=== PATIENT | female | born 1955 | race Caucasian/White ===

== ENCOUNTER 2018-03-17 08:46 | Day surgery (SDC) | payer OTHER, BC ==
[2018-03-16 08:27] VITALS: BMI 44.8
--- NOTE | 2018-03-17 11:10 | HP ---
[facility]ellite [facility] - Chief Complaint Chief Complaint: painful hardware right ankle History Source: Patient - Past Medical History Allergies/Adverse Reactions: Allergies Allergy/AdvReac Type Severity Reaction Status Date / Time niacin [Niacin] AdvReac Severe flushing Verified 03/17/18 09:31 - Current Medications Current Medications: Home Medications Medication Instructions Recorded Levothyroxine [Synthroid -] 175 mcg PO DAILY 11/25/11 Simvastatin [Zocor] 20 mg PO HS 11/25/11 Spiriva 18 mcg IN DAILY 11/25/11 Aspirin [Baby Aspirin] 81 mg PO DAILY 01/26/12 Amlodipine 10/Benazepril 20 1 tab PO DAILY 06/09/13 Omeprazole [Prilosec (RX)] 40 mg PO DAILY 06/09/13 Zolpidem Tartrate [Ambien] 10 mg PO HS 06/09/13 Budesonide/Formeterol Fumarate 2 inh PO BID 03/16/18 [SYMBICORT 160/4.5mcg -] Famotidine [Pepcid] 20 mg PO HS 03/16/18 Satellite Physical Exam - Physical Examination Vital Signs: Vital Signs Period Temp Pulse Resp BP Sys/Machado Pulse Ox Last 24 Hr 97.7 F 77 20 139/50 97 Extremities: Other (+ tenderness over plate right ankle) Satellite Impression/Plan - Impression/Plan Impression: painful hardware right ankle Operative Procedure: ABHILASH right ankle Date to be Performed: 03/17/18
[2018-03-17] MEDS ORDERED: LIDOCAINE 1%/EPI 1:100000 (20 ML MULTI DOSE VIAL) ONE (11:13)
[2018-03-17] MEDS ORDERED: MIDAZOLAM HCL 2 MG/2 ML SINGLE DOSE VIAL ONE (11:13)
[2018-03-17] MEDS ORDERED: BUPIVACAINE HCL/PF 0.5% (5MG/ML) 10 ML VIAL ONE (11:13)
[2018-03-17] MEDS ORDERED: ceFAZolin SODIUM 1 GM VIAL ONE (11:24)
[2018-03-17] MEDS ORDERED: KETAMINE HCL 200 MG/20 ML VIAL ONE (11:25)
[2018-03-17] MEDS ORDERED: PROPOFOL 20 ML ONE (11:29)
[2018-03-17] MEDS ORDERED: ceFAZolin SODIUM 1 GM VIAL IVPB ONE (11:35)
[2018-03-17] MEDS ORDERED: LIDOCAINE HCL 1%, 10 MG/ML (20ML VIAL) PNB ONE (11:39)
[2018-03-17] MEDS ORDERED: DEXAMETHASONE SOD PHOSPHATE 4 MG/1 ML VIAL ONE (11:53)
--- NOTE | 2018-03-17 12:12 | OP ---
Operative Note - Note: Operative Date: 03/17/18 ([facility]) Pre-Operative Diagnosis: right ankle painful hardware Operation: right ankle removal of hardware Post-Operative Diagnosis: Same as Pre-op Surgeon: Justyn Oliver Anesthesia: Local, MAC Specimens Removed: screws Estimated Blood Loss (mls): 10 Operative Report Dictated: Yes
[2018-03-17 13:29] VITALS: TEMP 98.1
[2018-03-17 13:37] VITALS: PULSE 84
--- NOTE | 2018-03-17 13:48 | OP ---
DATE OF OPERATION: 03/17/2018 PREOPERATIVE DIAGNOSIS: Painful hardware, right ankle. POSTOPERATIVE DIAGNOSIS: Painful hardware, right ankle. PROCEDURE: Removal of hardware, right ankle. SURGICAL ATTENDING: Justyn Oliver MD ANESTHESIA: Local with sedation. CLOSURE: Nylon 2-0 and 3-0. COMPLICATIONS: None. CONDITION: To recovery room in stable condition. DESCRIPTION OF OPERATIVE PROCEDURE: Patient was taken to the operating room on March 17, 2018. IV sedation was administered by the anesthesiologist. The right lower extremity was prepped and draped in the usual sterile fashion. The ankle area was infiltrated with 1% Xylocaine plan. Utilizing the previous incision, a full-thickness incision from the skin down to the plate was incised. Hemostasis achieved with Bovie cautery. The plate was dissected using periosteal elevator. All screws were removed and then the plate was removed. The sites were curetted and irrigated. The skin was then closed full-thickness with 2-0 and 3-0 nylon. A sterile pressure dressing was applied. The patient was awakened from anesthesia and transferred to recovery room in stable condition. No complication. Estimated blood loss negligible. [place] [id number]
[2018-03-17 14:43] VITALS: BP 145/77
--- NOTE | 2018-03-18 17:17 | PATH ---
Surgical Pathology Report Patient Name: FAINA PALACIO [facility]. Rec. #: [id number] /Age/Gender: 1955 (Age: 63) / F Account: [id number] Location: [facility] Taken: 03/12/2018 Received: 03/17/2018 Reported: 03/18/2018 Physicians: Justyn Oliver M.D. Specimen(s) Received 8 SCREWS, PLATE REMOVED FROM RIGHT ANKLE Clinical History Right ankle fracture Final Diagnosis ANKLE, RIGHT, PLATE AND SCREWS, REMOVAL: SURGICAL HARDWARE. MACROSCOPIC DIAGNOSIS. Electronically Signed Daniela Frank M.D. Gross Description Received fresh labeled "right ankle 8 removed screws and plate," is a 10.0 x 1.6 x 0.3 cm flores metallic plate. Also received within the same container are 8 flores metallic screws ranging from 0.9-1.5 cm in length. No soft tissue is present. No sections are submitted, gross only. /03/17/2018 [facility]03/17/2018
== END 2018-03-17 14:10 | disposition home or self-care (01) ==
LOC: JASU-SURG 08:46
PROVIDERS: ATTEND Orthopaedic Surgery
PROC: 0SPF04Z Removal of Internal Fixation Device from Right Ankle Joint, Open Approach (ICD-10-PCS; principal; 2018-03-17 10:15)
DX: T84.84XA Pain due to internal orthopedic prosthetic devices, implants and grafts, initial encounter (principal); Y83.9 Surgical procedure, unspecified as the cause of abnormal reaction of the patient, or of later complication, without mention of misadventure at the time of the procedure
CPT/HCPCS: 88300-TC

== ENCOUNTER 2018-04-26 08:00 | Inpatient (IN) | payer OTHER, BC ==
--- NOTE | 2018-04-26 08:42 | PDOC ---
History of Present Illness - History of Present Illness Initial Comments: 04/26/18 08:40 63f with pmh of broken ankle s/p hardware removal on March 17 presenting for admission per Dr. Galdamez for persistent infection of the site. Dr. Howard to do surgery tomorrow. <Rodrigue Will - Last Filed: 04/26/18 10:27> <Ivett Monroy - Last Filed: 04/26/18 11:58> - General Chief Complaint: Wound Stated Complaint: SENT BY PCP Time Seen by Provider: 04/26/18 08:24 Past History - Past Medical History Anemia: No Asthma: Yes Cancer: No Cardiac Disorders: No CVA: No COPD: Yes CHF: No Dementia: No Diabetes: No GI Disorders: No Disorders: No HTN: Yes Hypercholesterolemia: Yes Liver Disease: No Seizures: No Thyroid Disease: Yes - Surgical History Abdominal Surgery: No Appendectomy: No Cardiac Surgery: Yes (STENT (>10 YRS)) Cholecystectomy: No Lung Surgery: No Neurologic Surgery: No Orthopedic Surgery: Yes (orif l elbow) - Immunization History Td Vaccination: No Immunization Up to Date: No - Suicide/Smoking/Psychosocial Hx Smoking Status: Yes Smoking History: Current every day smoker Have you smoked in the past 12 months: Yes Number of Cigarettes Smoked Daily: 10 Information on smoking cessation initiated: No 'Breaking Loose' booklet given: 03/16/18 Hx Alcohol Use: No Drug/Substance Use Hx: No Substance Use Type: None Hx Substance Use Treatment: No <Rodrigue Will - Last Filed: 04/26/18 10:27> <Ivett Monroy - Last Filed: 04/26/18 11:58> - Past Medical History Allergies/Adverse Reactions: Allergies Allergy/AdvReac Type Severity Reaction Status Date / Time niacin [Niacin] AdvReac Severe flushing Verified 04/26/18 08:05 Home Medications: Ambulatory Orders Levothyroxine [Synthroid -] 175 mcg PO DAILY 11/25/11 Simvastatin [Zocor] 20 mg PO HS 11/25/11 Aspirin [Baby Aspirin] 81 mg PO DAILY 01/26/12 Zolpidem Tartrate [Ambien] 10 mg PO HS 06/09/13 Budesonide/Formeterol Fumarate [SYMBICORT 160/4.5mcg -] 2 inh PO BID 03/16/18 Famotidine [Pepcid] 20 mg PO HS 03/16/18 Sulfamethoxazole/Trimethoprim [Bactrim Ds Tablet] 1 each PO BID #20 tablet 04/20 Amlodipine Besylate/Benazepril [Lotrel 5-20 mg Capsule] 1 each PO DAILY Collagenase Clostridium Hist. [Santyl] 1 applic TP DAILY 04/26/18 Gentamicin 0.1% Ointment [Garamycin 0.1% Ointment -] 1 applic TP DAILY 04/26/18 Lansoprazole [Prevacid -] 30 mg PO DAILY 04/26/18 Potassium Chloride 10 meq PO DAILY 04/26/18 Tiotropium [place] [Spiriva] 1 inh PO DAILY 04/26/18 Review of Systems - Review of Systems Able to Perform ROS?: Yes Is the patient limited Belarusian proficient: No Constitutional: No: Symptoms Reported HEENTM: No: Symptoms Reported Respiratory: No: Symptoms reported Cardiac (ROS): No: Symptoms Reported ABD/GI: No: Symptoms Reported : No: Symptoms Reported Musculoskeletal: No: Symptoms Reported Integumentary: Yes: See HPI All Other Systems: Reviewed and Negative <Rodrigue Will - Last Filed: 04/26/18 10:27> *Physical Exam - Vital Signs Last Vital Signs Temp Pulse Resp BP Pulse Ox 98.7 F 84 18 126/68 98 04/26/18 08:05 04/26/18 08:05 04/26/18 08:05 04/26/18 08:05 04/26/18 08:05 - Physical Exam General Appearance: Yes: Nourished, Appropriately Dressed. No: Apparent Distress HEENT: positive: EOMI, RAF, Normal ENT Inspection Respiratory/Chest: positive: Lungs Clear, Normal Breath Sounds. negative: Chest Tender, Respiratory Distress Cardiovascular: positive: Regular Rhythm, Regular Rate, S1, S2 Gastrointestinal/Abdominal: positive: Normal Bowel Sounds, Flat, Soft. negative : Tender Extremity: positive: Normal Capillary Refill, Normal Range of Motion. negative : Normal Inspection (10cm linera wound on the lateral right ankle with purulence and foul odor. No sign of tissue necrosis) Integumentary: positive: Dry, Warm Neurologic: positive: Fully Oriented, Alert, Normal Mood/Affect <Rodrigue Will - Last Filed: 04/26/18 10:27> - Vital Signs Last Vital Signs Temp Pulse Resp BP Pulse Ox 98.7 F 84 18 126/68 98 04/26/18 08:05 04/26/18 08:05 04/26/18 08:05 04/26/18 08:05 04/26/18 08:05 <Ivett Monroy - Last Filed: 04/26/18 11:58> ED Treatment Course - LABORATORY CBC & Chemistry Diagram: 04/26/18 10:15 04/26/18 10:15 <Ivett Monroy - Last Filed: 04/26/18 11:58> Medical Decision Making - Medical Decision Making 04/26/18 10:26 EKG: Normal sinus rhythm Possible left atrial enlargement. Spoke to Dr. Galdamez who wants the patient started on Meropenem. All preop labs pending. CXR pending Spoke to Dr Fernandez who accepted the patient being admitted to her. Dr. Howard to do debridement tonight. <Rodrigue Will - Last Filed: 04/26/18 10:27> *DC/Admit/Observation/Transfer - Discharge Dispostion Decision to Admit order: Yes <Rodrigue Will - Last Filed: 04/26/18 10:27> <Ivett Monroy - Last Filed: 04/26/18 11:58> Diagnosis at time of Disposition: Direct infection of right ankle and foot in infectious and parasitic diseases classified elsewhere Wound dehiscence, surgical Qualifiers: Encounter type: initial encounter Qualified Code(s): T81.31XA - Disruption of external operation (surgical) wound, not elsewhere classified, initial encounter
--- NOTE | 2018-04-26 08:55 | PN ---
Progress Note (short form) - Note Progress Note: Vascular Surgery Right ankle ulcer. came into ER today for IV antibiotics and debridement. Will do debridement this evening. Chris kelly DO
[2018-04-26] MEDS ORDERED: MEROPENEM 1 GM in DEXTROSE 5%-WATER 100 ML IVPB ONE (09:27)
[2018-04-26 10:40] LABS: BASO % 0.4 % (0-2.0); EOS % 0.2 % (0-4.5); HEMATOCRIT 37.1 % (32.4-45.2); HEMOGLOBIN 12.1 GM/dL (10.7-15.3); LYMPH % 11.8 % (8-40); MCH 26.3 pg (25.7-33.7); MCHC 32.6 g/dl (32.0-36.0); MEAN CELL VOLUME 80.7 fl (80-96); MEAN PLT VOLUME 8.2 fl (7.5-11.1); MONO % 1.7 % (3.8-10.2); NEUT % 85.9 % (42.8-82.8); PLATELET COUNT 236 K/MM3 (134-434); RBC 4.59 M/mm3 (3.60-5.2); RDW 18.2 % (11.6-15.6); WHITE BLOOD COUNT 6.6 K/mm3 (4.0-10.0)
[2018-04-26 10:53] LABS: INR 1.19 (0.82-1.09); PROTHROMBIN TIME (PATIENT) 13.5 SEC (9.7-13.0)
[2018-04-26 10:56] LABS: ACTIVATED PTT 24.4 SECONDS (25.2-36.5)
[2018-04-26 11:05] LABS: ALBUMIN 3.9 g/dl (3.4-5.0); ALK PHOS 94 U/L (45-117); ANION GAP 8 (8-16); BILIRUBIN,TOTAL 0.3 mg/dL (0.2-1.0); BLOOD UREA NITROGEN 28 mg/dL (7-18); CALCIUM 9.3 mg/dL (8.5-10.1); CHLORIDE 107 mmol/L (98-107); CO2 23 mmol/L (21-32); CREATININE 1.4 mg/dL (0.55-1.02); GLUCOSE,RANDOM 146 mg/dL (74-106); POTASSIUM 4.7 mmol/L (3.5-5.1); SGOT/AST 19 U/L (15-37); SGPT/ALT 25 U/L (12-78); SODIUM 138 mmol/L (136-145)
--- NOTE | 2018-04-26 12:03 | PDOC ---
Attending Attestation - HPI HPI: 04/26/18 12:03 The patient is a 63 year old female, with a significant past medical history of ankle ORIF s/p hardware removal on 03/17/18 presenting today for admission per Dr. Galdamez for persistent infection to the right ankle s/p hardware removal. Dr. Howard to do surgery tomorrow. The patient denies chest pain, shortness of breath, headache and dizziness. The patient denies fever, chills, nausea, vomit, diarrhea and constipation. The patient denies dysuria, frequency, urgency and hematuria. Allergies: niacin Ortho: Dr. Oliver - Physicial Exam PE: 04/26/18 12:04 General: Well appearing, awake and alert, NAD. HEENT: PERRL, EOMI, normal conjunctiva, moist mucus membranes Neck: neck supple, FROM, no JVD, LAD or masses Lungs: CTAB, normal and even respirations, no respiratory distress Heart: RRR, no murmurs, 2+ peripheral pulses throughout, no peripheral edema Abdomen: soft, NTND, no peritoneal signs. No CVAT Back: nontender, normal inspection and ROM MSK: no edema, EDMONDS x4, ROM intact. No clubbing or cyanosis. normal bulk and tone. no tenderness Neuro: alert, oriented appropriately; no focal neurologic deficits. SILT, 5/5 distal and prox strength in all extrem. Skin: Large vertical dehissence wound measuring 6.5cm x1.5cm wound to right lateral malleolus without increased warmth, tenderness, or warmth. warm and well perfused, cap refill <2 sec, normal color; no rash - Medical Decision Making 04/26/18 12:06 Documentation prepared by Tory Briseno, acting as medical care administrator for Ivett Monroy MD, MD <Tory Briseno - Last Filed: 04/26/18 12:03> - Resident Resident Name: Rodrigue Will - Medical Decision Making 04/26/18 11:58 63 YOF with h/o COPD, HTN, HLD, hypothyroid, anxiety and depression, recent right ankle fx s/p plating and removal, with chronic right ankle dehiscence ulcer seen by Podiatry and vascular, presenting with acute on chronic wound ulcer. s/p Bactrim/Gentamicin Santyl x 2 weeks w/o improvement, no fevers or chills, paresthesia or weakness. DDx. wound dehiscence, ulcer, bacteremia, osteomyelitis. vital signs reviewed, wnl and stable. no fevers. preop labs ordered, wnl and reassuring. pain controlled, nonseptic appearing. blood cx ordered and pending. CXR wnl. prior wound culture revealed multiple organisms including Enterococcus, Kelbsiella, Acinobacter, Proteus species on 04/13. ID consultation with Dr. Broderick, recommended IV meropenem, first dose given. will admit for surgical debridement, admit to medicine for continued management. ID, podiatry cs obtained and will follow and Dr. Howard will debride tonight. Spoke to Dr Fernandez who accepted the patient being admitted to her. Dx: wound dehiscence ulcer 04/26/18 12:37 <Ivett Monroy - Last Filed: 04/26/18 12:38> Heart Score/ECG Review - ST and T Non Specific ST-T Wave changes: Yes - ECG Impressions Normal ECG: Yes Comment:: 04/26/18 12:03 nonischemic changes, nonspecific flattening in AVL, III, no elevations or depressions, normal intervals. <Ivett Monroy - Last Filed: 04/26/18 12:38>
[2018-04-26] MEDS ORDERED: ZOLPIDEM TARTRATE 5 MG TABLET PO PRN (14:37)
[2018-04-26 14:42] VITALS: BMI 33.0
[2018-04-26] MEDS ORDERED: ALBUTEROL SO4 0.083% IH SOL 2.5 MG/3 ML VIAL.NEB. NEB PRN ×2 (14:44→19:19)
--- NOTE | 2018-04-26 14:45 | CON.ID ---
Consult Consult Specialty:: infectious diseases Reason for Consultation:: non healing infected wound - History of Present Illness Chief Complaint: non healing wound History of Present Illness: 63f with pmh of broken ankle s/p hardware removal on March 17 pt has had an ankle fracture treated with screws in 2009, since then has had recurrent infection over surgical wound with likely fistula formation patient sutures were removed and her wound continues to have slough and has not been healing for along time cx done showed multiple organisms growing from her wound - History Source History Provided By: Patient Limitations to Obtaining History: No Limitations - Past Medical History ...: No - Alcohol/Substance Use Hx Alcohol Use: No - Smoking History Smoking history: Current every day smoker Have you smoked in the past 12 months: Yes Aproximately how many cigarettes per day: 10 Home Medications - Allergies Allergies/Adverse Reactions: Allergies Allergy/AdvReac Type Severity Reaction Status Date / Time niacin [Niacin] AdvReac Severe flushing Verified 04/26/18 08:05 - Home Medications Home Medications: Ambulatory Orders Levothyroxine [Synthroid -] 175 mcg PO DAILY 11/25/11 Simvastatin [Zocor] 20 mg PO HS 11/25/11 Aspirin [Baby Aspirin] 81 mg PO DAILY 01/26/12 Zolpidem Tartrate [Ambien] 10 mg PO HS 06/09/13 Budesonide/Formeterol Fumarate [SYMBICORT 160/4.5mcg -] 2 inh PO BID 03/16/18 Famotidine [Pepcid] 20 mg PO HS 03/16/18 Sulfamethoxazole/Trimethoprim [Bactrim Ds Tablet] 1 each PO BID #20 tablet 04/20 Amlodipine Besylate/Benazepril [Lotrel 5-20 mg Capsule] 1 each PO DAILY Collagenase Clostridium Hist. [Santyl] 1 applic TP DAILY 04/26/18 Gentamicin 0.1% Ointment [Garamycin 0.1% Ointment -] 1 applic TP DAILY 04/26/18 Lansoprazole [Prevacid -] 30 mg PO DAILY 04/26/18 Potassium Chloride 10 meq PO DAILY 04/26/18 Tiotropium [place] [Spiriva] 1 inh PO DAILY 04/26/18 Review of Systems - Review of Systems Constitutional: reports: No Symptoms Eyes: reports: No Symptoms HENT: reports: No Symptoms Neck: reports: No Symptoms Cardiovascular: reports: No Symptoms Respiratory: reports: No Symptoms Gastrointestinal: reports: No Symptoms Genitourinary: reports: No Symptoms Musculoskeletal: reports: Joint Pain Integumentary: reports: Erythema, Wound (rt leg) Neurological: reports: No Symptoms Endocrine: reports: No Symptoms Hematology/Lymphatic: reports: No Symptoms Psychiatric: reports: No Symptoms Physical Exam Vital Signs: Vital Signs Temperature 98.0 F 04/26/18 13:42 Pulse Rate 73 04/26/18 13:42 Respiratory Rate 20 04/26/18 13:42 Blood Pressure 140/68 04/26/18 13:42 O2 Sat by Pulse Oximetry (%) 100 04/26/18 12:55 Constitutional: Yes: Well Nourished, No Distress, Calm Eyes: Yes: Conjunctiva Clear HENT: Yes: Atraumatic, Normocephalic Neck: Yes: Supple, Trachea Midline Cardiovascular: Yes: Regular Rate and Rhythm Respiratory: Yes: Regular, CTA Bilaterally Gastrointestinal: Yes: Normal Bowel Sounds, Soft Musculoskeletal: Yes: WNL Extremities: Yes: Other Wound/Incision: Yes: Dressing Dry and Intact Neurological: Yes: Alert, Oriented Psychiatric: Yes: Alert, Oriented Labs: CBC, BMP 04/26/18 10:15 04/26/18 10:15 Imaging - Results Chest X-ray: Report Reviewed, Image Reviewed Assessment/Plan Problem List - Problems (1) Hypertension Code(s): I10 - ESSENTIAL (PRIMARY) HYPERTENSION Qualifiers: Hypertension type: essential hypertension Qualified Code(s): I10 - Essential (primary) hypertension (2) Hyperlipidemia Code(s): E78.5 - HYPERLIPIDEMIA, UNSPECIFIED Qualifiers: Hyperlipidemia type: pure hypercholesterolemia Qualified Code(s): E78.00 - Pure hypercholesterolemia, unspecified; E78.0 - Pure hypercholesterolemia (3) COPD (chronic obstructive pulmonary disease) Code(s): J44.9 - CHRONIC OBSTRUCTIVE PULMONARY DISEASE, UNSPECIFIED Qualifiers: COPD type: unspecified COPD Qualified Code(s): J44.9 - Chronic obstructive pulmonary disease, unspecified (4) DEISY (obstructive sleep apnea) Code(s): G47.33 - OBSTRUCTIVE SLEEP APNEA (ADULT) (PEDIATRIC) (5) Osteoarthritis Code(s): M19.90 - UNSPECIFIED OSTEOARTHRITIS, UNSPECIFIED SITE Qualifiers: Osteoarthritis location: multiple joints Osteoarthritis type: primary Qualified Code(s): M15.0 - Primary generalized (osteo)arthritis (6) Direct infection of right ankle and foot in infectious and parasitic diseases classified elsewhere Code(s): M01.X71 - DIR INFCT OF RIGHT ANK/FT IN INFEC/PARASTC DIS CLASSD ELSWHR (7) Wound dehiscence, surgical Code(s): T81.31XA - DISRUPTION OF EXTERNAL OPERATION (SURGICAL) WOUND, NEC, INIT Qualifiers: Encounter type: initial encounter Qualified Code(s): T81.31XA - Disruption of external operation (surgical) wound, not elsewhere classified, initial encounter plan debridement today meropenam post surgery cx to be done rest as per the team
--- NOTE | 2018-04-26 14:49 | HP ---
Admitting History and Physical - Primary Care Physician PCP: Vi Roberto - Admission Chief Complaint: wound infection History of Present Illness: s/p removal of hardware 03.17.18 (pt has had an ankle fracture treated with screws in 2009, since then has had recurrent infection over surgical wound with likely fistula formation) sutires were removed approx 2 weeks after uneventful surgery and wound opened up since with foul smelling discharge. wound culture on 04.13.18 growing multiple organisms. sent to er for iv abx, debridement of wound. History Source: Patient Limitations to Obtaining History: No Limitations - Past Medical History Cardiovascular: Yes: HTN, Hyperlipdemia Pulmonary: Yes: COPD, Sleep Apnea (on CPAP) ...: No Musculoskeletal: Yes: Osteoarthritis Endocrine: Yes: Hypothyroidism Additional Past Medical History: retinitis pigmentosa-legally blind - Past Surgical History Past Surgical History: Yes: Hysterectomy (), Oopherectomy Additional Past Surgical History: ankle fracture with screws 2009 - Smoking History Smoking history: Current every day smoker Have you smoked in the past 12 months: Yes Aproximately how many cigarettes per day: 10 - Alcohol/Substance Use Hx Alcohol Use: No - Social History Usual Living Arrangement: Yes: With Spouse ADL: Independent History of Recent Travel: No Home Medications - Allergies Allergies/Adverse Reactions: Allergies Allergy/AdvReac Type Severity Reaction Status Date / Time niacin [Niacin] AdvReac Severe flushing Verified 04/26/18 08:05 - Home Medications Home Medications: Ambulatory Orders Levothyroxine [Synthroid -] 175 mcg PO DAILY 11/25/11 Simvastatin [Zocor] 20 mg PO HS 11/25/11 Aspirin [Baby Aspirin] 81 mg PO DAILY 01/26/12 Zolpidem Tartrate [Ambien] 10 mg PO HS 06/09/13 Budesonide/Formeterol Fumarate [SYMBICORT 160/4.5mcg -] 2 inh PO BID 03/16/18 Famotidine [Pepcid] 20 mg PO HS 03/16/18 Sulfamethoxazole/Trimethoprim [Bactrim Ds Tablet] 1 each PO BID #20 tablet 04/20 Amlodipine Besylate/Benazepril [Lotrel 5-20 mg Capsule] 1 each PO DAILY Collagenase Clostridium Hist. [Santyl] 1 applic TP DAILY 04/26/18 Gentamicin 0.1% Ointment [Garamycin 0.1% Ointment -] 1 applic TP DAILY 04/26/18 Lansoprazole [Prevacid -] 30 mg PO DAILY 04/26/18 Potassium Chloride 10 meq PO DAILY 04/26/18 Tiotropium [place] [Spiriva] 1 inh PO DAILY 04/26/18 Family Disease History - Family Disease History Family Disease History: Diabetes: Mother (CVA), Other: Mother Review of Systems - Review of Systems Constitutional: reports: No Symptoms Eyes: reports: Other (legally blind) HENT: reports: No Symptoms Neck: reports: No Symptoms Cardiovascular: reports: No Symptoms Respiratory: reports: No Symptoms, Exercise Intolerance (at baseline), SOB on Exertion Gastrointestinal: reports: No Symptoms Genitourinary: reports: No Symptoms Musculoskeletal: reports: Joint Pain (chronic back and hip pains) Integumentary: reports: Other (as noted in h+p) Neurological: reports: No Symptoms Endocrine: reports: No Symptoms Psychiatric: reports: No Symptoms Physical Examination Vital Signs: Vital Signs Temperature 98.0 F 04/26/18 13:42 Pulse Rate 73 04/26/18 13:42 Respiratory Rate 20 04/26/18 13:42 Blood Pressure 140/68 04/26/18 13:42 O2 Sat by Pulse Oximetry (%) 100 04/26/18 12:55 Constitutional: Yes: Well Nourished, No Distress, Obese Eyes: Yes: Conjunctiva Clear, EOM Intact HENT: Yes: Normocephalic Neck: Yes: Trachea Midline Cardiovascular: Yes: Regular Rate and Rhythm Respiratory: Yes: CTA Bilaterally Gastrointestinal: Yes: Normal Bowel Sounds, Soft, Abdomen, Obese Edema: No Peripheral Pulses WNL: Yes Peripheral Pulses: Left Doralis Pedis: 2+, Right Dorsalis Pedis: 2+ Wound/Incision: Yes: Draining, Other (2.5 inches of open wound with seropurulent discharge) Neurological: Yes: WNL, Alert, Oriented ...Motor Strength: WNL Psychiatric: Yes: WNL Labs: CBC, BMP 04/26/18 10:15 04/26/18 10:15 Imaging - Results X-ray: Report Reviewed EKG: Image Reviewed Problem List - Problems (1) Hypertension Code(s): I10 - ESSENTIAL (PRIMARY) HYPERTENSION Qualifiers: Hypertension type: essential hypertension Qualified Code(s): I10 - Essential (primary) hypertension (2) Hyperlipidemia Code(s): E78.5 - HYPERLIPIDEMIA, UNSPECIFIED Qualifiers: Hyperlipidemia type: pure hypercholesterolemia Qualified Code(s): E78.00 - Pure hypercholesterolemia, unspecified; E78.0 - Pure hypercholesterolemia (3) COPD (chronic obstructive pulmonary disease) Code(s): J44.9 - CHRONIC OBSTRUCTIVE PULMONARY DISEASE, UNSPECIFIED Qualifiers: COPD type: unspecified COPD Qualified Code(s): J44.9 - Chronic obstructive pulmonary disease, unspecified (4) DEISY (obstructive sleep apnea) Code(s): G47.33 - OBSTRUCTIVE SLEEP APNEA (ADULT) (PEDIATRIC) (5) Osteoarthritis Code(s): M19.90 - UNSPECIFIED OSTEOARTHRITIS, UNSPECIFIED SITE Qualifiers: Osteoarthritis location: multiple joints Osteoarthritis type: primary Qualified Code(s): M15.0 - Primary generalized (osteo)arthritis (6) Direct infection of right ankle and foot in infectious and parasitic diseases classified elsewhere Code(s): M01.X71 - DIR INFCT OF RIGHT ANK/FT IN INFEC/PARASTC DIS CLASSD ELSWHR (7) Wound dehiscence, surgical Code(s): T81.31XA - DISRUPTION OF EXTERNAL OPERATION (SURGICAL) WOUND, NEC, INIT Qualifiers: Encounter type: initial encounter Qualified Code(s): T81.31XA - Disruption of external operation (surgical) wound, not elsewhere classified, initial encounter Assessment/Plan no medical contraindication to wound debridement today wound vac afterwards iv abx as per id continue home medications cpap
--- NOTE | 2018-04-26 15:04 | EKG ---
Test Reason : Blood Pressure : / mmHG Vent. Rate : 074 BPM Atrial Rate : 074 BPM P-R Int : 148 ms QRS Dur : 076 ms QT Int : 384 ms P-R-T Axes : 056 048 049 degrees QTc Int : 426 ms NORMAL SINUS RHYTHM POSSIBLE LEFT ATRIAL ENLARGEMENT BORDERLINE ECG WHEN COMPARED WITH ECG OF 26-NOV-2011 15:52, QT HAS SHORTENED Confirmed by TRAVIS CHANDRA MD ([id number]) on 04/26/2018 3:03:52 PM Referred By: Confirmed By:TRAVIS CHANDRA MD
[2018-04-26] MEDS ORDERED: PT OWN MED DRAWER 7, Y5N ONE (17:16)
[2018-04-26] MEDS ORDERED: MEROPENEM 1 GM in DEXTROSE 5%-WATER 100 ML IVPB SCH (18:00)
[2018-04-26] MEDS ORDERED: LIDOCAINE HCL 1%, 10 MG/ML (20ML VIAL) ONE (18:14)
[2018-04-26] MEDS ORDERED: KETOROLAC TROMETHAMINE 30 MG/1 ML VIAL ONE (18:42)
[2018-04-26] MEDS ORDERED: DEXAMETHASONE SOD PHOSPHATE 4 MG/1 ML VIAL ONE (18:42)
[2018-04-26] MEDS ORDERED: MIDAZOLAM HCL 2 MG/2 ML SINGLE DOSE VIAL ONE ×3 (18:43→18:51)
[2018-04-26] MEDS ORDERED: LIDOCAINE HCL 1%, 10 MG/ML (50 mL VIAL) IJ ONE (18:50)
--- NOTE | 2018-04-26 19:19 | OP ---
Operative Note - Note: Operative Date: 04/26/18 Pre-Operative Diagnosis: right ankle wound Operation: Excisional debridement skin, subcutaneous tissue right ankle. Post-Operative Diagnosis: Same as Pre-op Surgeon: Chris Howard Anesthesia: Fractional Estimated Blood Loss (mls): 20 Operative Report Dictated: Yes
[2018-04-26] MEDS: COLLAGENASE CLOSTRIDIUM HIST. 30 GRAMS TUBE TP SCH (19:30)
[2018-04-26] MEDS: ONDANSETRON 4 MG/2 ML VIAL IVPUSH PRN (20:15)
[2018-04-26] MEDS ORDERED: ONDANSETRON 4 MG/2 ML VIAL ONE (20:23)
[2018-04-26] MEDS ORDERED: oxyCODONE HCL 5 MG TABLET PO PRN (20:53)
[2018-04-26] MEDS ORDERED: PROMETHAZINE HCL 25 MG/1 ML VIAL IVPUSH PRN (20:53)
[2018-04-26] MEDS: ATORVASTATIN CA 10 MG TABLET (FP) PO SCH (21:20)
[2018-04-26] MEDS: BUDESONIDE/FORMETEROL FUMARATE 160/4.5 mcg INHALER IH SCH (21:21)
[2018-04-26] MEDS: ZOLPIDEM TARTRATE 5 MG TABLET PO PRN (21:24)
[2018-04-26] MEDS ORDERED: ATORVASTATIN CA 10 MG TABLET (FP) PO SCH (22:00)
[2018-04-26] MEDS ORDERED: BUDESONIDE/FORMETEROL FUMARATE 160/4.5 mcg INHALER IH SCH (22:00)
[2018-04-27] MEDS ORDERED: PT OWN MED DRAWER 7, Y5N ONE ×2 (00:15→21:01)
[2018-04-27] MEDS: MEROPENEM 1 GM in DEXTROSE 5%-WATER 100 ML IVPB SCH ×3 (02:31→17:35)
[2018-04-27] MEDS ORDERED: LEVOTHYROXINE NA 75 MCG TABLET (FP) ONE (05:15)
[2018-04-27] MEDS ORDERED: LEVOTHYROXINE NA 100 MCG TABLET (FP) ONE (05:15)
[2018-04-27] MEDS: LEVOTHYROXINE 100 MCG, LEVOTHYROXINE 75 MCG PO SCH (06:02)
--- NOTE | 2018-04-27 06:27 | OP ---
DATE OF OPERATION: 04/26/2018 PREOPERATIVE DIAGNOSIS: Right ankle wound. POSTOPERATIVE DIAGNOSIS: Right ankle wound. PROCEDURE: Excisional debridement, skin and subcutaneous tissue, right ankle. SURGEON: Chris Huerta MD ANESTHESIA: Fractional. BLOOD LOSS: Around 20 mL. INDICATIONS: The patient is a 63-year-old female who came into the ER today for right ankle wound that was growing out multiple organisms, and ID admitted her for IV antibiotics. They also wanted a debridement of the wound with wound cultures. Patient was consented for the procedure understanding all risks, benefits, and alternatives and was then brought into the operating room. PROCEDURE IN DETAIL: Once in the operating suite, she was placed on the operating table in the supine manner, and the area was prepped and draped in the sterile surgical manner. We then went ahead and injected 10 mL of lidocaine 1% over the right ankle wound. We then went ahead and used a curette, and using a curette, we were able to take all the necrotic skin and subcutaneous tissue. We were able to get down to good bleeding healthy tissue. We then irrigated the wound copiously, packed it with saline, with dry dressings, and wrapped with Kerlix. Patient tolerated the procedure with no complications. Patient transferred to PACU in stable condition. CHRIS HUERTA DO NP/[id number]
[2018-04-27] MEDS ORDERED: LEVOTHYROXINE 100 MCG, LEVOTHYROXINE 75 MCG PO SCH (07:00)
[2018-04-27 08:03] LABS: BASO % 0.4 % (0-2.0); HEMATOCRIT 36.2 % (32.4-45.2); HEMOGLOBIN 11.7 GM/dL (10.7-15.3); MCH 26.3 pg (25.7-33.7); MCHC 32.3 g/dl (32.0-36.0); MEAN CELL VOLUME 81.2 fl (80-96); MONO % 4.1 % (3.8-10.2); NEUT % 78.5 % (42.8-82.8); PLATELET COUNT 236 K/MM3 (134-434); RBC 4.46 M/mm3 (3.60-5.2); RDW 18.3 % (11.6-15.6); WHITE BLOOD COUNT 7.4 K/mm3 (4.0-10.0)
[2018-04-27 08:39] LABS: ALBUMIN 3.5 g/dl (3.4-5.0); ANION GAP 7 (8-16); BLOOD UREA NITROGEN 34 mg/dL (7-18); CALCIUM 8.7 mg/dL (8.5-10.1); CHLORIDE 109 mmol/L (98-107); CO2 24 mmol/L (21-32); GLUCOSE,RANDOM 96 mg/dL (74-106); POTASSIUM 4.9 mmol/L (3.5-5.1); SGOT/AST 12 U/L (15-37); SGPT/ALT 21 U/L (12-78); SODIUM 140 mmol/L (136-145)
[2018-04-27 08:41] LABS: ALK PHOS 87 U/L (45-117); BILIRUBIN,TOTAL 0.4 mg/dL (0.2-1.0); CREATININE 1.4 mg/dL (0.55-1.02); TOT PROT 7.3 g/dl (6.4-8.2)
[2018-04-27] MEDS: BUDESONIDE/FORMETEROL FUMARATE 160/4.5 mcg INHALER IH SCH ×2 (09:58→21:22)
[2018-04-27] MEDS: ONDANSETRON 4 MG/2 ML VIAL IVPUSH PRN (09:58)
[2018-04-27] MEDS ORDERED: PATIENT'S OWN MEDICATION (NON-FORMULARY) (Amlodipine Besylate/Benazepril [Lotrel 5-20 Mg C PO SCH (10:00)
[2018-04-27] MEDS ORDERED: LISINOPRIL 20 MG TABLET (FP) PO SCH (10:00)
[2018-04-27] MEDS ORDERED: PANTOPRAZOLE 20 MG TABLET (FP) PO SCH (10:00)
[2018-04-27] MEDS ORDERED: TIOTROPIUM BROMIDE 18 MCG CAPSULES IH SCH ×2 (10:00)
[2018-04-27] MEDS ORDERED: ASPIRIN 81 MG CHEWABLE TABLETS PO SCH (10:00)
[2018-04-27] MEDS: amLODIPine BESYLATE 5 MG TABLET (FP) PO SCH (10:00)
[2018-04-27] MEDS: LISINOPRIL 20 MG TABLET (FP) PO SCH (10:00)
[2018-04-27] MEDS ORDERED: amLODIPine BESYLATE 5 MG TABLET (FP) PO SCH (10:00)
[2018-04-27] MEDS ORDERED: POTASSIUM CHLORIDE TABS 10 MEQ TABLET.ER (FP) PO SCH (10:00)
[2018-04-27] MEDS ORDERED: LEVOTHYROXINE NA 200 MCG TABLET PO SCH (10:00)
[2018-04-27] MEDS ORDERED: FUROSEMIDE 40 MG TABLET (FP) PO SCH (10:00)
[2018-04-27] MEDS: POTASSIUM CHLORIDE TABS 10 MEQ TABLET.ER (FP) PO SCH (10:00)
[2018-04-27] MEDS: ASPIRIN 81 MG CHEWABLE TABLETS PO SCH (10:00)
[2018-04-27] MEDS: PANTOPRAZOLE 20 MG TABLET (FP) PO SCH (10:00)
[2018-04-27] MEDS: COLLAGENASE CLOSTRIDIUM HIST. 30 GRAMS TUBE TP SCH (10:28)
--- NOTE | 2018-04-27 10:40 | PN ---
Progress Note (short form) - Note Progress Note: CBC, BMP 04/27/18 07:30 04/27/18 07:30 Vital Signs Period Temp Pulse Resp BP Sys/Machado Pulse Ox Last 24 Hr 97.0 F-98.1 F 64-86 16-20 105-150/52-69 98-100 s1s2 rrr lungs cta no edema right ankle dressed [id number] s/p right ankle wound debridement POD #1 tolerated procedure well COPD/DEISY obesity HTN hypothyroidism surgical f/up for wound care iv abx as per id dc planning home with VNS Problem List - Problems (1) Hypertension Code(s): I10 - ESSENTIAL (PRIMARY) HYPERTENSION Qualifiers: Hypertension type: essential hypertension Qualified Code(s): I10 - Essential (primary) hypertension (2) Hyperlipidemia Code(s): E78.5 - HYPERLIPIDEMIA, UNSPECIFIED Qualifiers: Hyperlipidemia type: pure hypercholesterolemia Qualified Code(s): E78.00 - Pure hypercholesterolemia, unspecified; E78.0 - Pure hypercholesterolemia (3) COPD (chronic obstructive pulmonary disease) Code(s): J44.9 - CHRONIC OBSTRUCTIVE PULMONARY DISEASE, UNSPECIFIED Qualifiers: COPD type: unspecified COPD Qualified Code(s): J44.9 - Chronic obstructive pulmonary disease, unspecified (4) DEISY (obstructive sleep apnea) Code(s): G47.33 - OBSTRUCTIVE SLEEP APNEA (ADULT) (PEDIATRIC) (5) Osteoarthritis Code(s): M19.90 - UNSPECIFIED OSTEOARTHRITIS, UNSPECIFIED SITE Qualifiers: Osteoarthritis location: multiple joints Osteoarthritis type: primary Qualified Code(s): M15.0 - Primary generalized (osteo)arthritis (6) Direct infection of right ankle and foot in infectious and parasitic diseases classified elsewhere Code(s): M01.X71 - DIR INFCT OF RIGHT ANK/FT IN INFEC/PARASTC DIS CLASSD ELSWHR (7) Wound dehiscence, surgical Code(s): T81.31XA - DISRUPTION OF EXTERNAL OPERATION (SURGICAL) WOUND, NEC, INIT Qualifiers: Encounter type: initial encounter Qualified Code(s): T81.31XA - Disruption of external operation (surgical) wound, not elsewhere classified, initial encounter
[2018-04-27] MEDS ORDERED: ONDANSETRON 4 MG/2 ML VIAL IVPB PRN (14:08)
--- NOTE | 2018-04-27 14:13 | PN ---
Progress Note (short form) - Note Progress Note: Anesthesia Post-op Note Pt s/p debridement of right leg wound on 04/26/18 under MAC. Pt reports that she is feeling well. Pain well controlled. Had mild nausea but is tolerating PO diet. OOB. Vital Signs Temperature 97.9 F 04/27/18 10:00 Pulse Rate 72 04/27/18 10:00 Respiratory Rate 18 04/27/18 10:00 Blood Pressure 140/67 04/27/18 10:00 O2 Sat by Pulse Oximetry (%) 95 04/27/18 09:00 Continue present care. Encourage ISS. Bowel regimen with pain medications. OOB.
--- NOTE | 2018-04-27 15:38 | PN ---
Progress Note, Physician History of Present Illness: post debridement done no complaints patient doing well - Current Medication List Current Medications: Active Medications Albuterol Sulfate (Ventolin 0.083% Nebulizer Soln -) 1 amp NEB Q4H PRN PRN Reason: SHORT OF BREATH/WHEEZING Amlodipine Besylate (Norvasc -) 5 mg PO DAILY [facility] Last Admin: 04/27/18 10:00 Dose: 5 mg Aspirin (Asa -) 81 mg PO DAILY [facility] Last Admin: 04/27/18 10:00 Dose: 81 mg Atorvastatin Calcium (Lipitor -) 10 mg PO HS [facility] Last Admin: 04/26/18 21:20 Dose: 10 mg Budesonide/Formoterol Fumarate (Symbicort 160/4.5mcg -) 2 puff IH BID@0700, 2200 [facility] Collagenase (Santyl -) 1 applic TP DAILY [facility]; Protocol Last Admin: 04/27/18 10:28 Dose: Not Given Fentanyl (Sublimaze Injection -) 25 mcg IVPUSH [id number] PRN PRN Reason: PAIN-PACU ORDER X 4 DOSES ONLY Meropenem 1 gm/ Dextrose 100 mls @ 200 mls/hr IVPB Q8H-IV [facility] Last Admin: 04/27/18 10:00 Dose: 200 mls/hr Levothyroxine Sodium 100 mcg/ (Levothyroxine Sodium 75 mcg) 175 mcg PO DAILY@ 0700 [facility] Last Admin: 04/27/18 06:02 Dose: 175 mcg Lisinopril (Prinivil) 20 mg PO DAILY [facility] Last Admin: 04/27/18 10:00 Dose: 20 mg Ondansetron HCl (Zofran Injection) 8 mg IVPB Q6H PRN PRN Reason: NAUSEA Oxycodone HCl (Roxicodone -) 5 mg PO Q4H PRN PRN Reason: PAIN LEVEL 1-5 Stop: 04/27/18 20:52 Pantoprazole Sodium (Protonix -) 20 mg PO DAILY [facility] Last Admin: 04/27/18 10:00 Dose: 20 mg Potassium Chloride (K-Dur -) 10 meq PO DAILY [facility] Last Admin: 04/27/18 10:00 Dose: 10 meq Promethazine HCl (Phenergan Injection -) 12.5 mg IVPUSH Q6H PRN PRN Reason: NAUSEA-FOR RESCUE AFTER 15 MIN Tiotropium [place] (Spiriva -) 1 puff IH DAILY [facility] Zolpidem Tartrate (Ambien -) 5 mg PO HS PRN PRN Reason: INSOMNIA Last Admin: 04/26/18 21:24 Dose: 5 mg - Objective Vital Signs: Vital Signs Temperature 97.9 F 04/27/18 10:00 Pulse Rate 72 04/27/18 10:00 Respiratory Rate 18 04/27/18 10:00 Blood Pressure 140/67 04/27/18 10:00 O2 Sat by Pulse Oximetry (%) 95 04/27/18 09:00 Constitutional: Yes: No Distress, Calm Cardiovascular: Yes: Regular Rate and Rhythm Respiratory: Yes: Regular, CTA Bilaterally Gastrointestinal: Yes: Normal Bowel Sounds, Soft Musculoskeletal: Yes: WNL Extremities: Yes: Other Wound/Incision: Yes: Dressing Dry and Intact Neurological: Yes: Alert, Oriented Psychiatric: Yes: Alert, Oriented Labs: CBC, BMP 04/27/18 07:30 04/27/18 07:30 INR, PTT INR 1.19 (0.82-1.09) H 04/26/18 10:15 Assessment/Plan Problem List - Problems (1) Hypertension Code(s): I10 - ESSENTIAL (PRIMARY) HYPERTENSION Qualifiers: Hypertension type: essential hypertension Qualified Code(s): I10 - Essential (primary) hypertension (2) Hyperlipidemia Code(s): E78.5 - HYPERLIPIDEMIA, UNSPECIFIED Qualifiers: Hyperlipidemia type: pure hypercholesterolemia Qualified Code(s): E78.00 - Pure hypercholesterolemia, unspecified; E78.0 - Pure hypercholesterolemia (3) COPD (chronic obstructive pulmonary disease) Code(s): J44.9 - CHRONIC OBSTRUCTIVE PULMONARY DISEASE, UNSPECIFIED Qualifiers: COPD type: unspecified COPD Qualified Code(s): J44.9 - Chronic obstructive pulmonary disease, unspecified (4) DEISY (obstructive sleep apnea) Code(s): G47.33 - OBSTRUCTIVE SLEEP APNEA (ADULT) (PEDIATRIC) (5) Osteoarthritis Code(s): M19.90 - UNSPECIFIED OSTEOARTHRITIS, UNSPECIFIED SITE Qualifiers: Osteoarthritis location: multiple joints Osteoarthritis type: primary Qualified Code(s): M15.0 - Primary generalized (osteo)arthritis (6) Direct infection of right ankle and foot in infectious and parasitic diseases classified elsewhere Code(s): M01.X71 - DIR INFCT OF RIGHT ANK/FT IN INFEC/PARASTC DIS CLASSD ELSWHR (7) Wound dehiscence, surgical Code(s): T81.31XA - DISRUPTION OF EXTERNAL OPERATION (SURGICAL) WOUND, NEC, INIT Qualifiers: Encounter type: initial encounter Qualified Code(s): T81.31XA - Disruption of external operation (surgical) wound, not elsewhere classified, initial encounter plan debridement done ct abx await for cx reports rest as per the team
[2018-04-27] MEDS: ZOLPIDEM TARTRATE 5 MG TABLET PO PRN (21:21)
[2018-04-27] MEDS: ATORVASTATIN CA 10 MG TABLET (FP) PO SCH (21:21)
[2018-04-28] MEDS: MEROPENEM 1 GM in DEXTROSE 5%-WATER 100 ML IVPB SCH ×3 (01:15→17:40)
[2018-04-28] MEDS ORDERED: LEVOTHYROXINE NA 75 MCG TABLET (FP) ONE (05:34)
[2018-04-28] MEDS ORDERED: LEVOTHYROXINE NA 100 MCG TABLET (FP) ONE (05:34)
[2018-04-28] MEDS ORDERED: PT OWN MED DRAWER 7, Y5N ONE (05:34)
[2018-04-28] MEDS: LEVOTHYROXINE 100 MCG, LEVOTHYROXINE 75 MCG PO SCH (06:01)
[2018-04-28] MEDS: BUDESONIDE/FORMETEROL FUMARATE 160/4.5 mcg INHALER IH SCH ×2 (06:02→21:37)
--- NOTE | 2018-04-28 08:15 | PN ---
Progress Note (short form) - Note Progress Note: no complaints CBC, BMP Vital Signs Period Temp Pulse Resp BP Sys/Machado Pulse Ox Last 24 Hr 97.0 F-97.9 F 65-72 18-20 105-140/62-67 96 s1s2 rrr lungs cta no edema right ankle wound with packing, surrounding area clean, no edema, no tenderness no focal deficits s/p right ankle wound debridement POD #2 COPD/DEISY obesity HTN hypothyroidism surgical f/up for wound care iv abx as per id dc planning home with VNS Problem List - Problems (1) Hypertension Code(s): I10 - ESSENTIAL (PRIMARY) HYPERTENSION Qualifiers: Hypertension type: essential hypertension Qualified Code(s): I10 - Essential (primary) hypertension (2) Hyperlipidemia Code(s): E78.5 - HYPERLIPIDEMIA, UNSPECIFIED Qualifiers: Hyperlipidemia type: pure hypercholesterolemia Qualified Code(s): E78.00 - Pure hypercholesterolemia, unspecified; E78.0 - Pure hypercholesterolemia (3) COPD (chronic obstructive pulmonary disease) Code(s): J44.9 - CHRONIC OBSTRUCTIVE PULMONARY DISEASE, UNSPECIFIED Qualifiers: COPD type: unspecified COPD Qualified Code(s): J44.9 - Chronic obstructive pulmonary disease, unspecified (4) DEISY (obstructive sleep apnea) Code(s): G47.33 - OBSTRUCTIVE SLEEP APNEA (ADULT) (PEDIATRIC) (5) Osteoarthritis Code(s): M19.90 - UNSPECIFIED OSTEOARTHRITIS, UNSPECIFIED SITE Qualifiers: Osteoarthritis location: multiple joints Osteoarthritis type: primary Qualified Code(s): M15.0 - Primary generalized (osteo)arthritis (6) Direct infection of right ankle and foot in infectious and parasitic diseases classified elsewhere Code(s): M01.X71 - DIR INFCT OF RIGHT ANK/FT IN INFEC/PARASTC DIS CLASSD ELSWHR (7) Wound dehiscence, surgical Code(s): T81.31XA - DISRUPTION OF EXTERNAL OPERATION (SURGICAL) WOUND, NEC, INIT Qualifiers: Encounter type: initial encounter Qualified Code(s): T81.31XA - Disruption of external operation (surgical) wound, not elsewhere classified, initial encounter
--- NOTE | 2018-04-28 09:35 | PN ---
Progress Note (short form) - Note Progress Note: Surgery POD #2 right ankle Excisional debridement skin, subcutaneous. Patient seen and examined at bedside with no complaints. States pain is controlled and she has been up OOB ambulating without assistance. Denies any CP, SOB, N/V, fever or chills Vital Signs Temp 97.0 F L 04/28/18 05:54 Pulse 65 04/28/18 05:54 Resp 20 04/28/18 05:54 BP 105/62 04/28/18 05:54 Pulse Ox 96 04/27/18 20:00 Intake & Output 04/27/18 04/27/18 04/28/18 11:59 23:59 11:59 Intake Total 475 900 100 Balance 475 900 100 Intake: IVPB 200 200 100 Oral 275 700 Other: Voiding Method Toilet Toilet # Unmeasured Voids Void 2 2 Bowel Movement No CBC, BMP 04/27/18 07:30 04/27/18 07:30 PE: A&Ox3, NAD unlabored resp on RA Right ankle wound @ 7x2x1.2 cm over lateral malleolus, clean with well circumscribed boarders, beefy red base, no d/c, no foul odor, surrounding tissue intact with no erythema. foot warm and well prefused. Problem List - Problems (1) Wound dehiscence, surgical Assessment/Plan: POD #2 right ankle wound debridement. Patient would likely benefit from a wound vac 1) will order wound vac and return to place vac this afternoon. 2) Continue abx 3) WBAT/ OOB evaluation and plan discussed with Dr Howard Code(s): T81.31XA - DISRUPTION OF EXTERNAL OPERATION (SURGICAL) WOUND, NEC, INIT Qualifiers: Encounter type: initial encounter Qualified Code(s): T81.31XA - Disruption of external operation (surgical) wound, not elsewhere classified, initial encounter
[2018-04-28] MEDS: TIOTROPIUM BROMIDE 18 MCG CAPSULES IH SCH (10:04)
[2018-04-28] MEDS: COLLAGENASE CLOSTRIDIUM HIST. 30 GRAMS TUBE TP SCH (10:06)
[2018-04-28] MEDS: PANTOPRAZOLE 20 MG TABLET (FP) PO SCH (10:06)
[2018-04-28] MEDS: ASPIRIN 81 MG CHEWABLE TABLETS PO SCH (10:07)
[2018-04-28] MEDS: amLODIPine BESYLATE 5 MG TABLET (FP) PO SCH (10:07)
[2018-04-28] MEDS: POTASSIUM CHLORIDE TABS 10 MEQ TABLET.ER (FP) PO SCH (10:07)
[2018-04-28] MEDS: LISINOPRIL 20 MG TABLET (FP) PO SCH (10:07)
--- NOTE | 2018-04-28 15:19 | PROC ---
Procedure Note Procedure: WOUND VAC PLACEMENT TO RLE (lateral aspect) Area cleansed. Wound measurements: 6.5 cm x 2 cm x 1 cm Black sponge placed just within wound border (will encourage wound contracture) Occlusive dressing applied. Suction set to 125mmHg Good seal as evidenced by foam collapse and no air leak. VAC to be changed on Thursday --> will re-evaluate wound and make decision as to wether she will need out-patient VAC therapy Tolerated procedure well.
[2018-04-28] MEDS: ATORVASTATIN CA 10 MG TABLET (FP) PO SCH (21:36)
[2018-04-28] MEDS: ZOLPIDEM TARTRATE 5 MG TABLET PO PRN (21:36)
[2018-04-28] MEDS: RANITIDINE HCL 150 MG TABLET (FP) PO SCH (21:47)
[2018-04-29] MEDS: MEROPENEM 1 GM in DEXTROSE 5%-WATER 100 ML IVPB SCH ×3 (01:25→17:10)
[2018-04-29] MEDS ORDERED: LEVOTHYROXINE NA 75 MCG TABLET (FP) ONE (05:20)
[2018-04-29] MEDS ORDERED: LEVOTHYROXINE NA 100 MCG TABLET (FP) ONE (05:21)
[2018-04-29] MEDS: BUDESONIDE/FORMETEROL FUMARATE 160/4.5 mcg INHALER IH SCH ×2 (06:07→21:20)
[2018-04-29] MEDS: LEVOTHYROXINE 100 MCG, LEVOTHYROXINE 75 MCG PO SCH (06:07)
[2018-04-29] MEDS ORDERED: PT OWN MED DRAWER 7, Y5N ONE ×2 (06:11→16:34)
[2018-04-29 07:34] LABS: BASO % 0.6 % (0-2.0); EOS % 2.7 % (0-4.5); HEMATOCRIT 36.9 % (32.4-45.2); HEMOGLOBIN 12.1 GM/dL (10.7-15.3); LYMPH % 31.4 % (8-40); MCH 26.6 pg (25.7-33.7); MCHC 32.9 g/dl (32.0-36.0); MEAN PLT VOLUME 8.3 fl (7.5-11.1); MONO % 4.9 % (3.8-10.2); NEUT % 60.4 % (42.8-82.8); PLATELET COUNT 209 K/MM3 (134-434); RBC 4.55 M/mm3 (3.60-5.2); RDW 18.1 % (11.6-15.6); WHITE BLOOD COUNT 7.4 K/mm3 (4.0-10.0)
[2018-04-29 08:02] LABS: ALBUMIN 3.5 g/dl (3.4-5.0); ANION GAP 8 (8-16); BLOOD UREA NITROGEN 29 mg/dL (7-18); CALCIUM 8.9 mg/dL (8.5-10.1); CHLORIDE 109 mmol/L (98-107); CO2 25 mmol/L (21-32); GLUCOSE,RANDOM 87 mg/dL (74-106); POTASSIUM 4.4 mmol/L (3.5-5.1); SODIUM 142 mmol/L (136-145)
[2018-04-29 08:08] LABS: ALK PHOS 88 U/L (45-117); BILIRUBIN,TOTAL 0.7 mg/dL (0.2-1.0); CREATININE 0.9 mg/dL (0.55-1.02); SGOT/AST 19 U/L (15-37); SGPT/ALT 28 U/L (12-78); TOT PROT 7.2 g/dl (6.4-8.2)
--- NOTE | 2018-04-29 09:05 | PN ---
Progress Note (short form) - Note Progress Note: no complaints CBC, BMP 04/29/18 06:30 04/29/18 06:30 Vital Signs Period Temp Pulse Resp BP Sys/Machado Pulse Ox Last 24 Hr 98.2 F-98.3 F 67-71 19-20 102-111/51-61 97 s1s2 rrr lungs cta no edema right ankle wound with wound vac, surrounding area clean, no edema, no tenderness no focal deficits s/p right ankle wound debridement POD #3 COPD/DEISY obesity HTN hypothyroidism iv abx tentatively for 5 days, then po dc planning home with VNS and wound vac Problem List - Problems (1) Hypertension Code(s): I10 - ESSENTIAL (PRIMARY) HYPERTENSION Qualifiers: Hypertension type: essential hypertension Qualified Code(s): I10 - Essential (primary) hypertension (2) Hyperlipidemia Code(s): E78.5 - HYPERLIPIDEMIA, UNSPECIFIED Qualifiers: Hyperlipidemia type: pure hypercholesterolemia Qualified Code(s): E78.00 - Pure hypercholesterolemia, unspecified; E78.0 - Pure hypercholesterolemia (3) COPD (chronic obstructive pulmonary disease) Code(s): J44.9 - CHRONIC OBSTRUCTIVE PULMONARY DISEASE, UNSPECIFIED Qualifiers: COPD type: unspecified COPD Qualified Code(s): J44.9 - Chronic obstructive pulmonary disease, unspecified (4) DEISY (obstructive sleep apnea) Code(s): G47.33 - OBSTRUCTIVE SLEEP APNEA (ADULT) (PEDIATRIC) (5) Osteoarthritis Code(s): M19.90 - UNSPECIFIED OSTEOARTHRITIS, UNSPECIFIED SITE Qualifiers: Osteoarthritis location: multiple joints Osteoarthritis type: primary Qualified Code(s): M15.0 - Primary generalized (osteo)arthritis (6) Direct infection of right ankle and foot in infectious and parasitic diseases classified elsewhere Code(s): M01.X71 - DIR INFCT OF RIGHT ANK/FT IN INFEC/PARASTC DIS CLASSD ELSWHR (7) Wound dehiscence, surgical Code(s): T81.31XA - DISRUPTION OF EXTERNAL OPERATION (SURGICAL) WOUND, NEC, INIT Qualifiers: Encounter type: initial encounter Qualified Code(s): T81.31XA - Disruption of external operation (surgical) wound, not elsewhere classified, initial encounter
[2018-04-29] MEDS: TIOTROPIUM BROMIDE 18 MCG CAPSULES IH SCH (09:13)
[2018-04-29] MEDS: PANTOPRAZOLE 20 MG TABLET (FP) PO SCH (09:14)
[2018-04-29] MEDS: ASPIRIN 81 MG CHEWABLE TABLETS PO SCH (09:14)
[2018-04-29] MEDS: amLODIPine BESYLATE 5 MG TABLET (FP) PO SCH (09:15)
[2018-04-29] MEDS: COLLAGENASE CLOSTRIDIUM HIST. 30 GRAMS TUBE TP SCH (09:15)
[2018-04-29] MEDS: LISINOPRIL 20 MG TABLET (FP) PO SCH (09:15)
[2018-04-29] MEDS: POTASSIUM CHLORIDE TABS 10 MEQ TABLET.ER (FP) PO SCH (09:15)
--- NOTE | 2018-04-29 09:57 | PN ---
Progress Note, Physician History of Present Illness: doing well wound vac has been placed awaiting for finalization of wound cx - Current Medication List Current Medications: Active Medications Albuterol Sulfate (Ventolin 0.083% Nebulizer Soln -) 1 amp NEB Q4H PRN PRN Reason: SHORT OF BREATH/WHEEZING Last Admin: 04/28/18 21:00 Dose: 1 amp Amlodipine Besylate (Norvasc -) 5 mg PO DAILY [facility] Last Admin: 04/29/18 09:15 Dose: 5 mg Aspirin (Asa -) 81 mg PO DAILY [facility] Last Admin: 04/29/18 09:14 Dose: 81 mg Atorvastatin Calcium (Lipitor -) 10 mg PO HS [facility] Last Admin: 04/28/18 21:36 Dose: 10 mg Budesonide/Formoterol Fumarate (Symbicort 160/4.5mcg -) 2 puff IH BID@0700, 2200 [facility] Last Admin: 04/29/18 06:07 Dose: 2 puff Collagenase (Santyl -) 1 applic TP DAILY [facility]; Protocol Last Admin: 04/29/18 09:15 Dose: Not Given Fentanyl (Sublimaze Injection -) 25 mcg IVPUSH [id number] PRN PRN Reason: PAIN-PACU ORDER X 4 DOSES ONLY Meropenem 1 gm/ Dextrose 100 mls @ 200 mls/hr IVPB Q8H-IV [facility] Last Admin: 04/29/18 09:15 Dose: 200 mls/hr Levothyroxine Sodium 100 mcg/ (Levothyroxine Sodium 75 mcg) 175 mcg PO DAILY@ 0700 [facility] Last Admin: 04/29/18 06:07 Dose: 175 mcg Lisinopril (Prinivil) 20 mg PO DAILY [facility] Last Admin: 04/29/18 09:15 Dose: 20 mg Ondansetron HCl (Zofran Injection) 8 mg IVPB Q6H PRN PRN Reason: NAUSEA Pantoprazole Sodium (Protonix -) 20 mg PO DAILY [facility] Last Admin: 04/29/18 09:14 Dose: 20 mg Potassium Chloride (K-Dur -) 10 meq PO DAILY [facility] Last Admin: 04/29/18 09:15 Dose: Not Given Promethazine HCl (Phenergan Injection -) 12.5 mg IVPUSH Q6H PRN PRN Reason: NAUSEA-FOR RESCUE AFTER 15 MIN Ranitidine HCl (Zantac -) 150 mg PO HS [facility] Last Admin: 04/28/18 21:47 Dose: 150 mg Tiotropium [place] (Spiriva -) 1 puff IH DAILY [facility] Last Admin: 04/29/18 09:13 Dose: 1 puff Zolpidem Tartrate (Ambien -) 5 mg PO HS PRN PRN Reason: INSOMNIA Last Admin: 04/28/18 21:36 Dose: 5 mg - Objective Vital Signs: Vital Signs Temperature 98.3 F 04/29/18 05:58 Pulse Rate 71 04/29/18 05:58 Respiratory Rate 19 04/29/18 05:58 Blood Pressure 111/61 04/29/18 05:58 O2 Sat by Pulse Oximetry (%) 97 04/28/18 20:15 Constitutional: Yes: No Distress, Calm, Obese Cardiovascular: Yes: Regular Rate and Rhythm Respiratory: Yes: Regular, CTA Bilaterally Gastrointestinal: Yes: Normal Bowel Sounds, Soft Musculoskeletal: Yes: WNL Extremities: Yes: Other Wound/Incision: Yes: Other (wound vac in place) Neurological: Yes: Alert, Oriented Psychiatric: Yes: Alert, Oriented Labs: CBC, BMP 04/29/18 06:30 04/29/18 06:30 INR, PTT INR 1.19 (0.82-1.09) H 04/26/18 10:15 Assessment/Plan Problem List - Problems (1) Hypertension Code(s): I10 - ESSENTIAL (PRIMARY) HYPERTENSION Qualifiers: Hypertension type: essential hypertension Qualified Code(s): I10 - Essential (primary) hypertension (2) Hyperlipidemia Code(s): E78.5 - HYPERLIPIDEMIA, UNSPECIFIED Qualifiers: Hyperlipidemia type: pure hypercholesterolemia Qualified Code(s): E78.00 - Pure hypercholesterolemia, unspecified; E78.0 - Pure hypercholesterolemia (3) COPD (chronic obstructive pulmonary disease) Code(s): J44.9 - CHRONIC OBSTRUCTIVE PULMONARY DISEASE, UNSPECIFIED Qualifiers: COPD type: unspecified COPD Qualified Code(s): J44.9 - Chronic obstructive pulmonary disease, unspecified (4) DEISY (obstructive sleep apnea) Code(s): G47.33 - OBSTRUCTIVE SLEEP APNEA (ADULT) (PEDIATRIC) (5) Osteoarthritis Code(s): M19.90 - UNSPECIFIED OSTEOARTHRITIS, UNSPECIFIED SITE Qualifiers: Osteoarthritis location: multiple joints Osteoarthritis type: primary Qualified Code(s): M15.0 - Primary generalized (osteo)arthritis (6) Direct infection of right ankle and foot in infectious and parasitic diseases classified elsewhere Code(s): M01.X71 - DIR INFCT OF RIGHT ANK/FT IN INFEC/PARASTC DIS CLASSD ELSWHR (7) Wound dehiscence, surgical Code(s): T81.31XA - DISRUPTION OF EXTERNAL OPERATION (SURGICAL) WOUND, NEC, INIT Qualifiers: Encounter type: initial encounter Qualified Code(s): T81.31XA - Disruption of external operation (surgical) wound, not elsewhere classified, initial encounter plan awaiting for finalization of wound cx continue current abx will make final decision once we ahve all results wound care
[2018-04-29] MEDS: IBUPROFEN 600 MG TABLET (FP) PO PRN (17:12)
[2018-04-29] MEDS: RANITIDINE HCL 150 MG TABLET (FP) PO SCH (21:20)
[2018-04-29] MEDS: ATORVASTATIN CA 10 MG TABLET (FP) PO SCH (21:20)
[2018-04-29] MEDS: ZOLPIDEM TARTRATE 5 MG TABLET PO PRN (22:33)
[2018-04-30] MEDS ORDERED: PT OWN MED DRAWER 7, Y5N ONE ×2 (00:37→17:47)
[2018-04-30] MEDS: MEROPENEM 1 GM in DEXTROSE 5%-WATER 100 ML IVPB SCH ×3 (01:01→17:48)
[2018-04-30] MEDS ORDERED: LEVOTHYROXINE NA 100 MCG TABLET (FP) ONE (05:40)
[2018-04-30] MEDS ORDERED: LEVOTHYROXINE NA 75 MCG TABLET (FP) ONE (05:40)
[2018-04-30] MEDS: BUDESONIDE/FORMETEROL FUMARATE 160/4.5 mcg INHALER IH SCH ×2 (06:07→21:09)
[2018-04-30] MEDS: LEVOTHYROXINE 100 MCG, LEVOTHYROXINE 75 MCG PO SCH (06:07)
--- NOTE | 2018-04-30 07:41 | PN ---
Progress Note (short form) - Note Progress Note: no complaints Vital Signs Period Temp Pulse Resp BP Sys/Machado Pulse Ox Last 24 Hr 97.7 F-98.9 F 62-75 17-20 113-116/52-61 97 lungs cta no edema right ankle wound with wound vac, surrounding area clean, no edema, no tenderness no focal deficits s/p right ankle wound debridement on 04.26.18 (following removal of hardware from right ankle) COPD/DEISY obesity HTN hypothyroidism iv abx for 5 days, finishing today, then po dc planning home with VNS and wound vac awaiting wound care/surgical follow up forms filled, in chart Problem List - Problems (1) Hypertension Code(s): I10 - ESSENTIAL (PRIMARY) HYPERTENSION Qualifiers: Hypertension type: essential hypertension Qualified Code(s): I10 - Essential (primary) hypertension (2) Hyperlipidemia Code(s): E78.5 - HYPERLIPIDEMIA, UNSPECIFIED Qualifiers: Hyperlipidemia type: pure hypercholesterolemia Qualified Code(s): E78.00 - Pure hypercholesterolemia, unspecified; E78.0 - Pure hypercholesterolemia (3) COPD (chronic obstructive pulmonary disease) Code(s): J44.9 - CHRONIC OBSTRUCTIVE PULMONARY DISEASE, UNSPECIFIED Qualifiers: COPD type: unspecified COPD Qualified Code(s): J44.9 - Chronic obstructive pulmonary disease, unspecified (4) DEISY (obstructive sleep apnea) Code(s): G47.33 - OBSTRUCTIVE SLEEP APNEA (ADULT) (PEDIATRIC) (5) Osteoarthritis Code(s): M19.90 - UNSPECIFIED OSTEOARTHRITIS, UNSPECIFIED SITE Qualifiers: Osteoarthritis location: multiple joints Osteoarthritis type: primary Qualified Code(s): M15.0 - Primary generalized (osteo)arthritis (6) Direct infection of right ankle and foot in infectious and parasitic diseases classified elsewhere Code(s): M01.X71 - DIR INFCT OF RIGHT ANK/FT IN INFEC/PARASTC DIS CLASSD ELSWHR (7) Wound dehiscence, surgical Code(s): T81.31XA - DISRUPTION OF EXTERNAL OPERATION (SURGICAL) WOUND, NEC, INIT Qualifiers: Encounter type: initial encounter Qualified Code(s): T81.31XA - Disruption of external operation (surgical) wound, not elsewhere classified, initial encounter
[2018-04-30] MEDS: TIOTROPIUM BROMIDE 18 MCG CAPSULES IH SCH (09:58)
[2018-04-30] MEDS: PANTOPRAZOLE 20 MG TABLET (FP) PO SCH (09:58)
[2018-04-30] MEDS: amLODIPine BESYLATE 5 MG TABLET (FP) PO SCH (09:59)
[2018-04-30] MEDS: POTASSIUM CHLORIDE TABS 10 MEQ TABLET.ER (FP) PO SCH (09:59)
[2018-04-30] MEDS: LISINOPRIL 20 MG TABLET (FP) PO SCH (09:59)
[2018-04-30] MEDS: ASPIRIN 81 MG CHEWABLE TABLETS PO SCH (09:59)
[2018-04-30] MEDS: COLLAGENASE CLOSTRIDIUM HIST. 30 GRAMS TUBE TP SCH (09:59)
--- NOTE | 2018-04-30 11:20 | PN ---
Progress Note, Physician History of Present Illness: patient doing well her cx are not growing anything now no complaints - Current Medication List Current Medications: Active Medications Albuterol Sulfate (Ventolin 0.083% Nebulizer Soln -) 1 amp NEB Q4H PRN PRN Reason: SHORT OF BREATH/WHEEZING Last Admin: 04/28/18 21:00 Dose: 1 amp Amlodipine Besylate (Norvasc -) 5 mg PO DAILY [facility] Last Admin: 04/30/18 09:59 Dose: 5 mg Aspirin (Asa -) 81 mg PO DAILY [facility] Last Admin: 04/30/18 09:59 Dose: 81 mg Atorvastatin Calcium (Lipitor -) 10 mg PO HS [facility] Last Admin: 04/29/18 21:20 Dose: 10 mg Budesonide/Formoterol Fumarate (Symbicort 160/4.5mcg -) 2 puff IH BID@0700, 2200 [facility] Last Admin: 04/30/18 06:07 Dose: 2 puff Collagenase (Santyl -) 1 applic TP DAILY [facility]; Protocol Last Admin: 04/30/18 09:59 Dose: Not Given Fentanyl (Sublimaze Injection -) 25 mcg IVPUSH [id number] PRN PRN Reason: PAIN-PACU ORDER X 4 DOSES ONLY Meropenem 1 gm/ Dextrose 100 mls @ 200 mls/hr IVPB Q8H-IV [facility] Last Admin: 04/30/18 09:59 Dose: 200 mls/hr Ibuprofen (Motrin -) 600 mg PO Q6H PRN PRN Reason: PAIN LEVEL 1-5 Last Admin: 04/29/18 17:12 Dose: 600 mg Levothyroxine Sodium 100 mcg/ (Levothyroxine Sodium 75 mcg) 175 mcg PO DAILY@ 0700 [facility] Last Admin: 04/30/18 06:07 Dose: 175 mcg Lisinopril (Prinivil) 20 mg PO DAILY [facility] Last Admin: 04/30/18 09:59 Dose: 20 mg Ondansetron HCl (Zofran Injection) 8 mg IVPB Q6H PRN PRN Reason: NAUSEA Pantoprazole Sodium (Protonix -) 20 mg PO DAILY [facility] Last Admin: 04/30/18 09:58 Dose: 20 mg Potassium Chloride (K-Dur -) 10 meq PO DAILY [facility] Last Admin: 04/30/18 09:59 Dose: 10 meq Promethazine HCl (Phenergan Injection -) 12.5 mg IVPUSH Q6H PRN PRN Reason: NAUSEA-FOR RESCUE AFTER 15 MIN Ranitidine HCl (Zantac -) 150 mg PO HS [facility] Last Admin: 04/29/18 21:20 Dose: 150 mg Tiotropium [place] (Spiriva -) 1 puff IH DAILY [facility] Last Admin: 04/30/18 09:58 Dose: 1 puff Zolpidem Tartrate (Ambien -) 5 mg PO HS PRN PRN Reason: INSOMNIA Last Admin: 04/29/18 22:33 Dose: 5 mg - Objective Vital Signs: Vital Signs Temperature 98.8 F 04/30/18 09:54 Pulse Rate 73 04/30/18 09:54 Respiratory Rate 20 04/30/18 09:54 Blood Pressure 105/57 04/30/18 09:54 O2 Sat by Pulse Oximetry (%) 97 04/29/18 09:00 Constitutional: Yes: No Distress, Calm Neck: Yes: Supple, Trachea Midline Cardiovascular: Yes: Regular Rate and Rhythm Respiratory: Yes: Regular, CTA Bilaterally Gastrointestinal: Yes: Normal Bowel Sounds, Soft Musculoskeletal: Yes: WNL Extremities: Yes: Other Wound/Incision: Yes: Other (wound vac in place) Psychiatric: Yes: Alert Labs: CBC, BMP 04/29/18 06:30 04/29/18 06:30 INR, PTT INR 1.19 (0.82-1.09) H 04/26/18 10:15 Assessment/Plan Problem List - Problems (1) Hypertension Code(s): I10 - ESSENTIAL (PRIMARY) HYPERTENSION Qualifiers: Hypertension type: essential hypertension Qualified Code(s): I10 - Essential (primary) hypertension (2) Hyperlipidemia Code(s): E78.5 - HYPERLIPIDEMIA, UNSPECIFIED Qualifiers: Hyperlipidemia type: pure hypercholesterolemia Qualified Code(s): E78.00 - Pure hypercholesterolemia, unspecified; E78.0 - Pure hypercholesterolemia (3) COPD (chronic obstructive pulmonary disease) Code(s): J44.9 - CHRONIC OBSTRUCTIVE PULMONARY DISEASE, UNSPECIFIED Qualifiers: COPD type: unspecified COPD Qualified Code(s): J44.9 - Chronic obstructive pulmonary disease, unspecified (4) DEISY (obstructive sleep apnea) Code(s): G47.33 - OBSTRUCTIVE SLEEP APNEA (ADULT) (PEDIATRIC) (5) Osteoarthritis Code(s): M19.90 - UNSPECIFIED OSTEOARTHRITIS, UNSPECIFIED SITE Qualifiers: Osteoarthritis location: multiple joints Osteoarthritis type: primary Qualified Code(s): M15.0 - Primary generalized (osteo)arthritis (6) Direct infection of right ankle and foot in infectious and parasitic diseases classified elsewhere Code(s): M01.X71 - DIR INFCT OF RIGHT ANK/FT IN INFEC/PARASTC DIS CLASSD ELSWHR (7) Wound dehiscence, surgical Code(s): T81.31XA - DISRUPTION OF EXTERNAL OPERATION (SURGICAL) WOUND, NEC, INIT Qualifiers: Encounter type: initial encounter Qualified Code(s): T81.31XA - Disruption of external operation (surgical) wound, not elsewhere classified, initial encounter plan cx results noted patient can be switched to oral abx from tomorrow patient should go home on 1 augmentin 875 mg bid for another 10 days 2 keflex for another 10 days wound care rest as per the team
[2018-04-30] MEDS: IBUPROFEN 600 MG TABLET (FP) PO PRN ×2 (15:09→22:41)
--- NOTE | 2018-04-30 15:14 | PN ---
Progress Note (short form) - Note Progress Note: 63yo F h/o RLE lateral malelolus wound s/p vac placement. Pt denies pain around wound and no active drainage. PE: Gen: A&O x3 Resp: breathing comfortably Ext: RLE shows 5 x 2 cm wound on Lateral maleolus with good granulation tissue, no erythema. Problem List - Problems (1) Wound dehiscence, surgical Assessment/Plan: Plan -wound appears to benefit from continued wound vac for at least another week, can discharge pt home with wound vac. -continue abx as per ID -pt should follow up in wound clinic with Dr. Howard next week for evaluation. Code(s): T81.31XA - DISRUPTION OF EXTERNAL OPERATION (SURGICAL) WOUND, NEC, INIT Qualifiers: Encounter type: initial encounter Qualified Code(s): T81.31XA - Disruption of external operation (surgical) wound, not elsewhere classified, initial encounter
[2018-04-30] MEDS: ATORVASTATIN CA 10 MG TABLET (FP) PO SCH (21:09)
[2018-04-30] MEDS: RANITIDINE HCL 150 MG TABLET (FP) PO SCH (21:09)
[2018-04-30] MEDS: ZOLPIDEM TARTRATE 5 MG TABLET PO PRN (21:09)
[2018-05-01] MEDS ORDERED: PT OWN MED DRAWER 7, Y5N ONE ×3 (00:35→09:01)
[2018-05-01] MEDS: MEROPENEM 1 GM in DEXTROSE 5%-WATER 100 ML IVPB SCH ×2 (02:37→09:37)
[2018-05-01] MEDS ORDERED: LEVOTHYROXINE NA 75 MCG TABLET (FP) ONE (05:25)
[2018-05-01] MEDS ORDERED: LEVOTHYROXINE NA 100 MCG TABLET (FP) ONE (05:25)
[2018-05-01] MEDS: BUDESONIDE/FORMETEROL FUMARATE 160/4.5 mcg INHALER IH SCH (06:12)
[2018-05-01] MEDS: LEVOTHYROXINE 100 MCG, LEVOTHYROXINE 75 MCG PO SCH (06:12)
--- NOTE | 2018-05-01 09:06 | DS ---
Physical Examination Vital Signs: Vital Signs Temperature 97.8 F 05/01/18 06:06 Pulse Rate 64 05/01/18 06:06 Respiratory Rate 16 05/01/18 06:06 Blood Pressure 100/63 05/01/18 06:06 O2 Sat by Pulse Oximetry (%) 97 04/29/18 09:00 Findings/Remarks: no complaints Constitutional: Yes: Well Nourished, Obese HENT: Yes: Normocephalic Neck: Yes: Trachea Midline Cardiovascular: Yes: Regular Rate and Rhythm Respiratory: Yes: CTA Bilaterally Gastrointestinal: Yes: Normal Bowel Sounds, Soft Edema: No Peripheral Pulses WNL: Yes Wound/Incision: Yes: Other (wound vac in place, tissue around wound is clean, not erythematous.) ...Motor Strength: WNL Psychiatric: Yes: WNL Labs: CBC, BMP 04/29/18 06:30 04/29/18 06:30 Discharge Summary Reason For Visit: INFECTION OF RIGHT ANKLE Current Active Problems COPD (chronic obstructive pulmonary disease) (Acute) Direct infection of right ankle and foot in infectious and parasitic diseases classified elsewhere (Acute) Hyperlipidemia (Acute) Hypertension (Acute) DEISY (obstructive sleep apnea) (Acute) Osteoarthritis (Acute) Wound dehiscence, surgical (Acute) Hospital Course: 63 yo lady with wound dehiscence following removal of hardware from right ankle. h/o COPD/DEISY obesity HTN hypothyroidism admitted for wound debridement on 04.26.18 received iv meropenem for 5 days, finishing today, now stable to switch to po finish another 10 days of abx wound vac to be continued at home, needs regular follow up at wound care clinic. Condition: Fair - Instructions Diet, Activity, Other Instructions: wound care and dr. Roberto next week Referrals: Vi Roberto MD [Primary Care Provider] - Disposition: [facility]/HOME HEALTH CARE - Home Medications Comprehensive Discharge Medication List: Ambulatory Orders Levothyroxine [Synthroid -] 175 mcg PO DAILY 11/25/11 Simvastatin [Zocor] 20 mg PO HS 11/25/11 Aspirin [Baby Aspirin] 81 mg PO DAILY 01/26/12 Zolpidem Tartrate [Ambien] 10 mg PO HS 06/09/13 Budesonide/Formeterol Fumarate [SYMBICORT 160/4.5mcg -] 2 inh PO BID 03/16/18 Famotidine [Pepcid] 20 mg PO HS 03/16/18 Amlodipine Besylate/Benazepril [Lotrel 5-20 mg Capsule] 1 each PO DAILY Lansoprazole [Prevacid -] 30 mg PO DAILY 04/26/18 Potassium Chloride 10 meq PO DAILY 04/26/18 Tiotropium [place] [Spiriva] 1 inh PO DAILY 04/26/18 Amoxicillin/Potassium Clav [Augmentin 875-125 Tablet] 1 each PO BID #20 tablet 05/01/18 Cephalexin [Keflex] 500 mg PO BID #20 capsule 05/01/18 Ibuprofen [Motrin -] 600 mg PO Q6H PRN #30 tablet 05/01/18 Ondansetron HCl [Zofran] 4 mg PO Q8H PRN #12 tablet 05/01/18
[2018-05-01] MEDS: ASPIRIN 81 MG CHEWABLE TABLETS PO SCH (09:37)
[2018-05-01] MEDS: PANTOPRAZOLE 20 MG TABLET (FP) PO SCH (09:37)
[2018-05-01] MEDS: amLODIPine BESYLATE 5 MG TABLET (FP) PO SCH ×2 (09:37→09:40)
[2018-05-01] MEDS: POTASSIUM CHLORIDE TABS 10 MEQ TABLET.ER (FP) PO SCH (09:37)
[2018-05-01] MEDS: TIOTROPIUM BROMIDE 18 MCG CAPSULES IH SCH (09:37)
[2018-05-01] MEDS: LISINOPRIL 20 MG TABLET (FP) PO SCH ×2 (09:37→09:40)
[2018-05-01] MEDS: COLLAGENASE CLOSTRIDIUM HIST. 30 GRAMS TUBE TP SCH (09:38)
--- NOTE | 2018-05-01 12:40 | PN ---
Progress Note, Physician History of Present Illness: stable doing well no new issues - Current Medication List Current Medications: Active Medications Albuterol Sulfate (Ventolin 0.083% Nebulizer Soln -) 1 amp NEB Q4H PRN PRN Reason: SHORT OF BREATH/WHEEZING Last Admin: 04/28/18 21:00 Dose: 1 amp Amlodipine Besylate (Norvasc -) 5 mg PO DAILY [facility] Last Admin: 05/01/18 09:40 Dose: 5 mg Amoxicillin/Clavulanate Potassium (Augmentin - 875mg Tablet) 1 tab PO BID [facility] Aspirin (Asa -) 81 mg PO DAILY [facility] Last Admin: 05/01/18 09:37 Dose: 81 mg Atorvastatin Calcium (Lipitor -) 10 mg PO HS [facility] Last Admin: 04/30/18 21:09 Dose: 10 mg Budesonide/Formoterol Fumarate (Symbicort 160/4.5mcg -) 2 puff IH BID@0700, 2200 [facility] Last Admin: 05/01/18 06:12 Dose: 2 puff Cephalexin HCl (Keflex -) 500 mg PO BID [facility] Collagenase (Santyl -) 1 applic TP DAILY [facility]; Protocol Last Admin: 05/01/18 09:38 Dose: Not Given Fentanyl (Sublimaze Injection -) 25 mcg IVPUSH [id number] PRN PRN Reason: PAIN-PACU ORDER X 4 DOSES ONLY Ibuprofen (Motrin -) 600 mg PO Q6H PRN PRN Reason: PAIN LEVEL 1-5 Last Admin: 04/30/18 22:41 Dose: 600 mg Levothyroxine Sodium 100 mcg/ (Levothyroxine Sodium 75 mcg) 175 mcg PO DAILY@ 0700 [facility] Last Admin: 05/01/18 06:12 Dose: 175 mcg Lisinopril (Prinivil) 20 mg PO DAILY [facility] Last Admin: 05/01/18 09:40 Dose: 20 mg Ondansetron HCl (Zofran Injection) 8 mg IVPB Q6H PRN PRN Reason: NAUSEA Pantoprazole Sodium (Protonix -) 20 mg PO DAILY [facility] Last Admin: 05/01/18 09:37 Dose: 20 mg Potassium Chloride (K-Dur -) 10 meq PO DAILY [facility] Last Admin: 05/01/18 09:37 Dose: 10 meq Promethazine HCl (Phenergan Injection -) 12.5 mg IVPUSH Q6H PRN PRN Reason: NAUSEA-FOR RESCUE AFTER 15 MIN Ranitidine HCl (Zantac -) 150 mg PO HS [facility] Last Admin: 04/30/18 21:09 Dose: 150 mg Tiotropium [place] (Spiriva -) 1 puff IH DAILY [facility] Last Admin: 05/01/18 09:37 Dose: 1 puff Zolpidem Tartrate (Ambien -) 5 mg PO HS PRN PRN Reason: INSOMNIA Last Admin: 04/30/18 21:09 Dose: 5 mg - Objective Vital Signs: Vital Signs Temperature 98.7 F 05/01/18 09:51 Pulse Rate 75 05/01/18 09:51 Respiratory Rate 18 05/01/18 09:51 Blood Pressure 116/62 05/01/18 09:51 O2 Sat by Pulse Oximetry (%) 97 04/29/18 09:00 Constitutional: Yes: No Distress, Calm Cardiovascular: Yes: Regular Rate and Rhythm Respiratory: Yes: Regular, CTA Bilaterally Gastrointestinal: Yes: Normal Bowel Sounds, Soft Musculoskeletal: Yes: WNL Extremities: Yes: Other Wound/Incision: Yes: Other (wound vac in place) Psychiatric: Yes: Alert, Oriented Labs: CBC, BMP 04/29/18 06:30 04/29/18 06:30 INR, PTT INR 1.19 (0.82-1.09) H 04/26/18 10:15 Assessment/Plan Problem List - Problems (1) Hypertension Code(s): I10 - ESSENTIAL (PRIMARY) HYPERTENSION Qualifiers: Hypertension type: essential hypertension Qualified Code(s): I10 - Essential (primary) hypertension (2) Hyperlipidemia Code(s): E78.5 - HYPERLIPIDEMIA, UNSPECIFIED Qualifiers: Hyperlipidemia type: pure hypercholesterolemia Qualified Code(s): E78.00 - Pure hypercholesterolemia, unspecified; E78.0 - Pure hypercholesterolemia (3) COPD (chronic obstructive pulmonary disease) Code(s): J44.9 - CHRONIC OBSTRUCTIVE PULMONARY DISEASE, UNSPECIFIED Qualifiers: COPD type: unspecified COPD Qualified Code(s): J44.9 - Chronic obstructive pulmonary disease, unspecified (4) DEISY (obstructive sleep apnea) Code(s): G47.33 - OBSTRUCTIVE SLEEP APNEA (ADULT) (PEDIATRIC) (5) Osteoarthritis Code(s): M19.90 - UNSPECIFIED OSTEOARTHRITIS, UNSPECIFIED SITE Qualifiers: Osteoarthritis location: multiple joints Osteoarthritis type: primary Qualified Code(s): M15.0 - Primary generalized (osteo)arthritis (6) Direct infection of right ankle and foot in infectious and parasitic diseases classified elsewhere Code(s): M01.X71 - DIR INFCT OF RIGHT ANK/FT IN INFEC/PARASTC DIS CLASSD ELSWHR (7) Wound dehiscence, surgical Code(s): T81.31XA - DISRUPTION OF EXTERNAL OPERATION (SURGICAL) WOUND, NEC, INIT Qualifiers: Encounter type: initial encounter Qualified Code(s): T81.31XA - Disruption of external operation (surgical) wound, not elsewhere classified, initial encounter plan doing well continue abx as planned wound care rest as per the team
[2018-05-01] MEDS ORDERED: AMOX TR/POT CLAV 875MG/125MG TABLETS (FP) PO SCH (12:45)
[2018-05-01] MEDS ORDERED: CEPHALEXIN MONOHYDRATE 500 MG CAPSULE (UD) PO SCH (12:45)
[2018-05-01] MEDS: IBUPROFEN 600 MG TABLET (FP) PO PRN (18:08)
[2018-05-01 19:39] VITALS: BP 112/57; PULSE 77; TEMP 99.5
== END 2018-05-01 21:35 | disposition home or self-care (01) | DRG 857 ==
LOC: JER 08:00 → JERBED 10:10 → J6S 13:23
PROVIDERS: ADMIT Internal Medicine; ATTEND Internal Medicine
PROC: 0JBQ0ZZ Excision of Right Foot Subcutaneous Tissue and Fascia, Open Approach (ICD-10-PCS; principal; 2018-04-26 18:30)
DX: T81.4XXA Infection following a procedure, initial encounter (principal); T81.31XA Disruption of external operation (surgical) wound, not elsewhere classified, initial encounter; J44.9 Chronic obstructive pulmonary disease, unspecified; I10 Essential (primary) hypertension; E78.5 Hyperlipidemia, unspecified; F41.9 Anxiety disorder, unspecified; F17.210 Nicotine dependence, cigarettes, uncomplicated; E66.9 Obesity, unspecified; F32.9 Major depressive disorder, single episode, unspecified; Z68.33 Body mass index [BMI] 33.0-33.9, adult; G47.33 Obstructive sleep apnea (adult) (pediatric); Y83.8 Other surgical procedures as the cause of abnormal reaction of the patient, or of later complication, without mention of misadventure at the time of the procedure; E03.9 Hypothyroidism, unspecified
CPT/HCPCS: 36415; 71046-TC-FY; 80053; 85025; 85610; 85730; 86850; 86900; 86901; 87040; 87070; 87205; 93005; 93010; 94640; 94760; 99283-25

== ENCOUNTER 2022-09-01 11:12 | Inpatient (IN) | payer OTHER, BC ==
[2022-09-01] MEDS ORDERED: ALBUTEROL SO4 2.5/IPRATROPIUM 0.5 INH SOL 3 ML VIAL.NEB. NEB ONE ×2 (12:24→12:27)
[2022-09-01] MEDS ORDERED: methylPREDNISolone NA SUCC 125 MG/2 ML VIAL IVPB ONE (12:45)
[2022-09-01] MEDS ORDERED: methylPREDNISolone NA SUCC 40 MG/1 ML VIAL ONE ×2 (12:52→21:44)
[2022-09-01 13:24] LABS: BASO % 0.9 % (0-2.0); EOS % 0.3 % (0-4.5); HEMOGLOBIN 11.5 GM/dL (10.7-15.3); LYMPH % 5.5 % (8-40); MCH 28.9 pg (25.7-33.7); MCHC 33.9 g/dl (32.0-36.0); MEAN CELL VOLUME 85.1 fl (80-96); MEAN PLT VOLUME 7.7 fl (7.5-11.1); MONO % 6.8 % (3.8-10.2); NEUT % 86.5 % (42.8-82.8); PLATELET COUNT 263 10^3/uL (134-434); WHITE BLOOD COUNT 15.4 K/mm3 (4.0-10.0)
[2022-09-01 13:27] LABS: VENOUS BASE EXCESS -1.7 mmol/L (-2-2); VENOUS O2 SATURATION 84.5 % (70-80); VENOUS PCO2 43.2 mmHg (38-52); VENOUS PH 7.359 (7.310-7.410)
[2022-09-01 13:32] LABS: INR 1.47 (0.83-1.09)
[2022-09-01 13:47] LABS: ALBUMIN 2.8 g/dl (3.4-5.0); BLOOD UREA NITROGEN 18.7 mg/dL (7-18); CALCIUM 7.9 mg/dL (8.5-10.1)
[2022-09-01 13:50] LABS: CREATININE 1.1 mg/dL (0.55-1.3)
[2022-09-01 13:52] LABS: BILIRUBIN,TOTAL 1.3 mg/dL (0.2-1); TOT PROT 6.8 g/dl (6.4-8.2)
[2022-09-01 13:55] LABS: N-TERMINAL BNP 776.7 pg/ml (5-125)
[2022-09-01] MEDS ORDERED: CEFTRIAXONE 1 GM in DEXTROSE 5%-WATER - 50 ML IVPB ONE (14:31)
[2022-09-01] MEDS ORDERED: AZITHROMYCIN IVPB 500 MG in DEXTROSE 5%-WATER - 250 ML IVPB ONE (14:31)
[2022-09-01] MEDS ORDERED: CEFTRIAXONE 1 GM/50 ML BAG ONE (14:42)
[2022-09-01] MEDS ORDERED: AZITHROMYCIN IVPB 500 MG/250 ML BAG IVPB ONE (14:42)
[2022-09-01] MEDS ORDERED: ACETAMINOPHEN 325 MG TABLET (FP) PO ONE (14:57)
[2022-09-01] MEDS ORDERED: ACETAMINOPHEN 325 MG TABLET (FP) ONE (14:58)
[2022-09-01] MEDS ORDERED: PANTOPRAZOLE 40 MG TABLET PO ONE ×2 (15:43→17:10)
[2022-09-01] MEDS ORDERED: ALBUTEROL SO4 0.083% IH SOL 2.5 MG/3 ML VIAL.NEB. NEB ONE (21:44)
[2022-09-01] MEDS: methylPREDNISolone NA SUCC 40 MG/1 ML VIAL IVPUSH SCH (21:49)
[2022-09-01] MEDS: ALBUTEROL SO4 0.083% IH SOL 2.5 MG/3 ML VIAL.NEB. NEB PRN (21:49)
[2022-09-01] MEDS: GABAPENTIN 300 MG CAPSULE PO SCH (22:00)
[2022-09-01] MEDS: BUDESONIDE/FORMETEROL FUMARATE 160/4.5 mcg INHALER IH SCH (22:01)
[2022-09-02] MEDS: ALBUTEROL SO4 0.083% IH SOL 2.5 MG/3 ML VIAL.NEB. NEB PRN ×3 (00:52→20:41)
[2022-09-02] MEDS: ZOLPIDEM TARTRATE 5 MG TABLET PO PRN ×2 (01:01→21:32)
[2022-09-02] MEDS: methylPREDNISolone NA SUCC 40 MG/1 ML VIAL IVPUSH SCH ×4 (03:50→21:17)
[2022-09-02 04:47] VITALS: BMI 40.1
[2022-09-02] MEDS: LEVOTHYROXINE NA 125 MCG TABLET (FP) PO SCH (06:51)
[2022-09-02] MEDS: ASPIRIN 81 MG CHEWABLE TABLETS PO SCH (10:01)
[2022-09-02] MEDS: LOSARTAN POTASSIUM 50 MG TABLET PO SCH (10:01)
[2022-09-02] MEDS: amLODIPine BESYLATE 5 MG TABLET (FP) PO SCH (10:02)
[2022-09-02] MEDS: GABAPENTIN 300 MG CAPSULE PO SCH ×2 (10:02→21:19)
[2022-09-02] MEDS: PARoxetine HCL 20 MG TABLET PO SCH (10:03)
[2022-09-02] MEDS: ENOXAPARIN NA (PORCINE) 40 MG/0.4 ML DISP.SYRIN SQ SCH (10:04)
[2022-09-02] MEDS: TIOTROPIUM BROMIDE 2.5 MCG (SPIRIVA) RESPIMAT INHALER IH SCH (10:04)
[2022-09-02] MEDS: BUDESONIDE/FORMETEROL FUMARATE 160/4.5 mcg INHALER IH SCH ×2 (10:05→21:19)
[2022-09-02 10:37] LABS: HEMOGLOBIN 11.4 GM/dL (10.7-15.3); MCH 29.7 pg (25.7-33.7); MCHC 33.6 g/dl (32.0-36.0); MEAN CELL VOLUME 88.5 fl (80-96); PLATELET COUNT 278 10^3/uL (134-434); RBC 3.84 M/mm3 (3.60-5.2); RDW 15.8 % (11.6-15.6)
[2022-09-02] MEDS: CEFTRIAXONE 1 GM in DEXTROSE 5%-WATER - 50 ML IVPB SCH (10:50)
[2022-09-02 11:12] LABS: ALBUMIN 2.9 g/dl (3.4-5.0); BLOOD UREA NITROGEN 28.2 mg/dL (7-18); CALCIUM 8.5 mg/dL (8.5-10.1)
[2022-09-02 11:15] LABS: CREATININE 1.2 mg/dL (0.55-1.3)
[2022-09-02 11:17] LABS: BILIRUBIN,TOTAL 0.6 mg/dL (0.2-1)
[2022-09-02] MEDS: guaiFENesin/D-M SUGAR-FREE/ACLHOL-FREE 5 ML UNIT DOSE PO PRN (21:28)
[2022-09-03] MEDS: methylPREDNISolone NA SUCC 40 MG/1 ML VIAL IVPUSH SCH ×4 (03:13→21:22)
[2022-09-03] MEDS: LEVOTHYROXINE NA 125 MCG TABLET (FP) PO SCH (06:21)
[2022-09-03] MEDS: ENOXAPARIN NA (PORCINE) 40 MG/0.4 ML DISP.SYRIN SQ SCH (09:56)
[2022-09-03] MEDS: amLODIPine BESYLATE 5 MG TABLET (FP) PO SCH (09:56)
[2022-09-03] MEDS: ASPIRIN 81 MG CHEWABLE TABLETS PO SCH (09:56)
[2022-09-03] MEDS: LOSARTAN POTASSIUM 50 MG TABLET PO SCH (09:56)
[2022-09-03] MEDS: GABAPENTIN 300 MG CAPSULE PO SCH ×2 (09:56→21:22)
[2022-09-03] MEDS: CEFTRIAXONE 1 GM in DEXTROSE 5%-WATER - 50 ML IVPB SCH (09:56)
[2022-09-03] MEDS: PARoxetine HCL 20 MG TABLET PO SCH (09:56)
[2022-09-03] MEDS: BUDESONIDE/FORMETEROL FUMARATE 160/4.5 mcg INHALER IH SCH ×2 (10:00→21:23)
[2022-09-03] MEDS: ALBUTEROL SO4 0.083% IH SOL 2.5 MG/3 ML VIAL.NEB. NEB PRN (10:00)
[2022-09-03] MEDS: TIOTROPIUM BROMIDE 2.5 MCG (SPIRIVA) RESPIMAT INHALER IH SCH (10:01)
[2022-09-03] MEDS: busPIRone HCL 5 MG TABLET PO SCH ×2 (14:26→21:22)
[2022-09-03] MEDS: ZOLPIDEM TARTRATE 5 MG TABLET PO PRN (21:22)
[2022-09-03] MEDS: guaiFENesin/D-M SUGAR-FREE/ACLHOL-FREE 5 ML UNIT DOSE PO PRN (22:19)
[2022-09-04] MEDS: methylPREDNISolone NA SUCC 40 MG/1 ML VIAL IVPUSH SCH ×3 (02:47→17:55)
[2022-09-04] MEDS: LEVOTHYROXINE NA 125 MCG TABLET (FP) PO SCH (06:20)
[2022-09-04] MEDS: busPIRone HCL 5 MG TABLET PO SCH ×4 (06:20→22:33)
[2022-09-04] MEDS ORDERED: ACETAMINOPHEN 325 MG TABLET (FP) PO PRN ×2 (08:27→08:50)
[2022-09-04] MEDS: CEFTRIAXONE 1 GM in DEXTROSE 5%-WATER - 50 ML IVPB SCH (09:41)
[2022-09-04] MEDS: LOSARTAN POTASSIUM 50 MG TABLET PO SCH (09:42)
[2022-09-04] MEDS: ASPIRIN 81 MG CHEWABLE TABLETS PO SCH (09:42)
[2022-09-04] MEDS: GABAPENTIN 300 MG CAPSULE PO SCH ×2 (09:42→22:24)
[2022-09-04] MEDS: PARoxetine HCL 20 MG TABLET PO SCH (09:42)
[2022-09-04] MEDS: amLODIPine BESYLATE 5 MG TABLET (FP) PO SCH (09:43)
[2022-09-04] MEDS: ENOXAPARIN NA (PORCINE) 40 MG/0.4 ML DISP.SYRIN SQ SCH (09:43)
[2022-09-04] MEDS: TIOTROPIUM BROMIDE 2.5 MCG (SPIRIVA) RESPIMAT INHALER IH SCH (09:46)
[2022-09-04] MEDS: BUDESONIDE/FORMETEROL FUMARATE 160/4.5 mcg INHALER IH SCH ×2 (09:46→22:26)
[2022-09-04] MEDS: ALBUTEROL SO4 0.083% IH SOL 2.5 MG/3 ML VIAL.NEB. NEB SCH ×3 (11:01→20:11)
[2022-09-04 18:56] VITALS: RESP 18
[2022-09-04] MEDS: ZOLPIDEM TARTRATE 5 MG TABLET PO PRN (22:24)
[2022-09-04] MEDS: guaiFENesin/D-M SUGAR-FREE/ACLHOL-FREE 5 ML UNIT DOSE PO PRN (22:25)
[2022-09-05] MEDS: methylPREDNISolone NA SUCC 40 MG/1 ML VIAL IVPUSH SCH ×3 (01:17→18:05)
[2022-09-05] MEDS: LEVOTHYROXINE NA 125 MCG TABLET (FP) PO SCH (06:13)
[2022-09-05] MEDS: busPIRone HCL 5 MG TABLET PO SCH ×3 (06:13→21:57)
[2022-09-05] MEDS: ALBUTEROL SO4 0.083% IH SOL 2.5 MG/3 ML VIAL.NEB. NEB SCH ×4 (08:45→21:10)
[2022-09-05] MEDS: CEFTRIAXONE 1 GM in DEXTROSE 5%-WATER - 50 ML IVPB SCH (10:31)
[2022-09-05] MEDS: amLODIPine BESYLATE 5 MG TABLET (FP) PO SCH (10:32)
[2022-09-05] MEDS: GABAPENTIN 300 MG CAPSULE PO SCH ×2 (10:32→21:57)
[2022-09-05] MEDS: ENOXAPARIN NA (PORCINE) 40 MG/0.4 ML DISP.SYRIN SQ SCH (10:32)
[2022-09-05] MEDS: PARoxetine HCL 20 MG TABLET PO SCH (10:32)
[2022-09-05] MEDS: LOSARTAN POTASSIUM 50 MG TABLET PO SCH (10:32)
[2022-09-05] MEDS: ASPIRIN 81 MG CHEWABLE TABLETS PO SCH (10:32)
[2022-09-05] MEDS: BUDESONIDE/FORMETEROL FUMARATE 160/4.5 mcg INHALER IH SCH ×2 (10:36→21:57)
[2022-09-05] MEDS: TIOTROPIUM BROMIDE 2.5 MCG (SPIRIVA) RESPIMAT INHALER IH SCH (10:36)
[2022-09-05] MEDS ORDERED: PNEUMOC 20-VAL CONJ-DIP CRM/PF 0.5 ML SYRINGE IM ONE (18:34)
[2022-09-05] MEDS: ZOLPIDEM TARTRATE 5 MG TABLET PO PRN (21:57)
[2022-09-06] MEDS: methylPREDNISolone NA SUCC 40 MG/1 ML VIAL IVPUSH SCH ×4 (01:47→22:17)
[2022-09-06] MEDS: LEVOTHYROXINE NA 125 MCG TABLET (FP) PO SCH (06:44)
[2022-09-06] MEDS: busPIRone HCL 5 MG TABLET PO SCH ×3 (06:44→22:17)
[2022-09-06] MEDS: ALBUTEROL SO4 0.083% IH SOL 2.5 MG/3 ML VIAL.NEB. NEB SCH ×4 (08:55→21:12)
[2022-09-06 09:23] LABS: HEMATOCRIT 34.7 % (32.4-45.2); HEMOGLOBIN 11.5 GM/dL (10.7-15.3); MCH 27.9 pg (25.7-33.7); MEAN CELL VOLUME 84.6 fl (80-96); MEAN PLT VOLUME 7.7 fl (7.5-11.1); PLATELET COUNT 301 10^3/uL (134-434); RDW 15.6 % (11.6-15.6); WHITE BLOOD COUNT 8.9 K/mm3 (4.0-10.0)
[2022-09-06 09:37] LABS: ALBUMIN 2.9 g/dl (3.4-5.0); BLOOD UREA NITROGEN 32.7 mg/dL (7-18); CALCIUM 8.5 mg/dL (8.5-10.1)
[2022-09-06 09:40] LABS: CREATININE 1.1 mg/dL (0.55-1.3)
[2022-09-06 09:42] LABS: BILIRUBIN,TOTAL 0.8 mg/dL (0.2-1); TOT PROT 6.2 g/dl (6.4-8.2)
[2022-09-06] MEDS: BUDESONIDE/FORMETEROL FUMARATE 160/4.5 mcg INHALER IH SCH ×2 (10:54→22:17)
[2022-09-06] MEDS: TIOTROPIUM BROMIDE 2.5 MCG (SPIRIVA) RESPIMAT INHALER IH SCH (10:54)
[2022-09-06] MEDS: CEFTRIAXONE 1 GM in DEXTROSE 5%-WATER - 50 ML IVPB SCH (10:57)
[2022-09-06] MEDS: LOSARTAN POTASSIUM 50 MG TABLET PO SCH (10:58)
[2022-09-06] MEDS: ASPIRIN 81 MG CHEWABLE TABLETS PO SCH (10:58)
[2022-09-06] MEDS: amLODIPine BESYLATE 5 MG TABLET (FP) PO SCH (10:58)
[2022-09-06] MEDS: PARoxetine HCL 20 MG TABLET PO SCH (10:59)
[2022-09-06] MEDS: ENOXAPARIN NA (PORCINE) 40 MG/0.4 ML DISP.SYRIN SQ SCH (10:59)
[2022-09-06] MEDS: GABAPENTIN 300 MG CAPSULE PO SCH ×2 (10:59→22:17)
[2022-09-06] MEDS: ZOLPIDEM TARTRATE 5 MG TABLET PO PRN (22:17)
[2022-09-07] MEDS: busPIRone HCL 5 MG TABLET PO SCH ×3 (06:36→21:53)
[2022-09-07] MEDS: LEVOTHYROXINE NA 125 MCG TABLET (FP) PO SCH (06:36)
[2022-09-07] MEDS: ALBUTEROL SO4 0.083% IH SOL 2.5 MG/3 ML VIAL.NEB. NEB SCH ×4 (08:02→20:28)
[2022-09-07] MEDS: CEFTRIAXONE 1 GM in DEXTROSE 5%-WATER - 50 ML IVPB SCH (09:43)
[2022-09-07] MEDS: ENOXAPARIN NA (PORCINE) 40 MG/0.4 ML DISP.SYRIN SQ SCH (09:43)
[2022-09-07] MEDS: methylPREDNISolone NA SUCC 40 MG/1 ML VIAL IVPUSH SCH ×2 (09:44→21:53)
[2022-09-07] MEDS: ASPIRIN 81 MG CHEWABLE TABLETS PO SCH (09:44)
[2022-09-07] MEDS: GABAPENTIN 300 MG CAPSULE PO SCH ×2 (09:44→21:53)
[2022-09-07] MEDS: PARoxetine HCL 20 MG TABLET PO SCH (09:44)
[2022-09-07] MEDS: TIOTROPIUM BROMIDE 2.5 MCG (SPIRIVA) RESPIMAT INHALER IH SCH (09:46)
[2022-09-07] MEDS: BUDESONIDE/FORMETEROL FUMARATE 160/4.5 mcg INHALER IH SCH ×2 (09:46→21:53)
[2022-09-07] MEDS ORDERED: LOSARTAN POTASSIUM 50 MG TABLET PO ONE (13:15)
[2022-09-07] MEDS: ZOLPIDEM TARTRATE 5 MG TABLET PO PRN (21:54)
[2022-09-08] MEDS: busPIRone HCL 5 MG TABLET PO SCH ×2 (06:07→13:21)
[2022-09-08] MEDS: LEVOTHYROXINE NA 125 MCG TABLET (FP) PO SCH (06:07)
[2022-09-08] MEDS: ALBUTEROL SO4 0.083% IH SOL 2.5 MG/3 ML VIAL.NEB. NEB SCH ×2 (08:45→11:45)
[2022-09-08] MEDS ORDERED: predniSONE 20 MG TABLET (UD) PO SCH (10:00)
[2022-09-08] MEDS: GABAPENTIN 300 MG CAPSULE PO SCH (10:40)
[2022-09-08] MEDS: ASPIRIN 81 MG CHEWABLE TABLETS PO SCH (10:40)
[2022-09-08] MEDS: amLODIPine BESYLATE 5 MG TABLET (FP) PO SCH (10:40)
[2022-09-08] MEDS: PARoxetine HCL 20 MG TABLET PO SCH (10:40)
[2022-09-08] MEDS: LOSARTAN POTASSIUM 50 MG TABLET PO SCH (10:40)
[2022-09-08] MEDS: ENOXAPARIN NA (PORCINE) 40 MG/0.4 ML DISP.SYRIN SQ SCH (10:41)
[2022-09-08] MEDS: CEFTRIAXONE 1 GM in DEXTROSE 5%-WATER - 50 ML IVPB SCH (10:41)
[2022-09-08] MEDS: BUDESONIDE/FORMETEROL FUMARATE 160/4.5 mcg INHALER IH SCH (10:48)
[2022-09-08] MEDS: TIOTROPIUM BROMIDE 2.5 MCG (SPIRIVA) RESPIMAT INHALER IH SCH (10:50)
[2022-09-08 15:47] VITALS: BP 119/48; PULSE 83; TEMP 98.3
== END 2022-09-08 18:10 | disposition home or self-care (01) | DRG 190 ==
LOC: JER 11:12 → JERBED 14:46 → J5S 09-02 00:41
PROVIDERS: ADMIT Internal Medicine; ATTEND Internal Medicine
DX: J44.1 Chronic obstructive pulmonary disease with (acute) exacerbation (principal); J12.9 Viral pneumonia, unspecified; Z68.41 Body mass index [BMI] 40.0-44.9, adult; E66.9 Obesity, unspecified; I10 Essential (primary) hypertension; E78.5 Hyperlipidemia, unspecified; H54.8 Legal blindness, as defined in USA; G47.33 Obstructive sleep apnea (adult) (pediatric); E03.9 Hypothyroidism, unspecified; J06.9 Acute upper respiratory infection, unspecified; I25.10 Atherosclerotic heart disease of native coronary artery without angina pectoris; F17.210 Nicotine dependence, cigarettes, uncomplicated
CPT/HCPCS: 0241U-QW; 36415; 71046-TC-FY; 71250-TC; 80053; 82803; 83880; 84484; 85025; 85027; 85610; 86850; 86900; 86901; 93005; 93010; 94640; 97116-GP; 97161-GP; 99285-25

== ENCOUNTER 2022-09-14 14:55 | Inpatient (IN) | payer OTHER, BC ==
[2022-09-14 16:55] LABS: HEMATOCRIT 33.3 % (32.4-45.2); HEMOGLOBIN 10.6 GM/dL (10.7-15.3); MCH 27.6 pg (25.7-33.7); MEAN CELL VOLUME 86.5 fl (80-96); MEAN PLT VOLUME 7.4 fl (7.5-11.1); PLATELET COUNT 258 10^3/uL (134-434); RBC 3.85 M/mm3 (3.60-5.2); RDW 16.8 % (11.6-15.6); WHITE BLOOD COUNT 12.1 K/mm3 (4.0-10.0)
[2022-09-14 17:18] LABS: ALBUMIN 2.9 g/dl (3.4-5.0); CALCIUM 8.2 mg/dL (8.5-10.1)
[2022-09-14 17:19] LABS: BLOOD UREA NITROGEN 28.2 mg/dL (7-18)
[2022-09-14 17:23] LABS: BILIRUBIN,TOTAL 0.8 mg/dL (0.2-1); TOT PROT 5.8 g/dl (6.4-8.2)
[2022-09-14 17:26] LABS: N-TERMINAL BNP 1172.9 pg/ml (5-125)
[2022-09-14] MEDS ORDERED: FUROSEMIDE 20 MG TABLET (FP) PO ONE (18:26)
[2022-09-14] MEDS ORDERED: FUROSEMIDE 20 MG TABLET (FP) ONE (18:33)
[2022-09-14] MEDS ORDERED: FUROSEMIDE 40 MG/4 ML INJECTABLE VIAL IVPUSH SCH (20:37)
[2022-09-14 20:42] LABS: INR 1.04 (0.83-1.09)
[2022-09-14 20:44] LABS: ACTIVATED PTT 21.5 SECONDS (25.2-36.5)
[2022-09-14] MEDS: ALBUTEROL SO4 0.083% IH SOL 2.5 MG/3 ML VIAL.NEB. NEB PRN (22:33)
[2022-09-14] MEDS ORDERED: FUROSEMIDE 40 MG/4 ML INJECTABLE VIAL IVPUSH ONE (23:58)
[2022-09-15] MEDS ORDERED: FUROSEMIDE 40 MG/4 ML INJECTABLE VIAL ONE (00:06)
[2022-09-15] MEDS ORDERED: ALBUTEROL SO4 0.083% IH SOL 2.5 MG/3 ML VIAL.NEB. NEB ONE (00:06)
[2022-09-15] MEDS ORDERED: FUROSEMIDE 40 MG/4 ML INJECTABLE VIAL IVPUSH SCH (06:00)
[2022-09-15] MEDS ORDERED: busPIRone HCL 5 MG TABLET ONE (06:22)
[2022-09-15] MEDS ORDERED: LEVOTHYROXINE NA 75 MCG TABLET (FP) ONE (06:22)
[2022-09-15] MEDS ORDERED: LEVOTHYROXINE NA 50 MCG TABLET (FP) ONE (06:22)
[2022-09-15] MEDS: LEVOTHYROXINE NA 125 MCG TABLET (FP) PO SCH (06:32)
[2022-09-15] MEDS: busPIRone HCL 5 MG TABLET PO SCH ×3 (06:32→21:15)
[2022-09-15 09:45] LABS: BASO % 0.2 % (0-2.0); EOS % 1.1 % (0-4.5); HEMATOCRIT 34.8 % (32.4-45.2); HEMOGLOBIN 11.4 GM/dL (10.7-15.3); LYMPH % 21.3 % (8-40); MCH 28.2 pg (25.7-33.7); MCHC 32.9 g/dl (32.0-36.0); MEAN CELL VOLUME 85.7 fl (80-96); MEAN PLT VOLUME 7.3 fl (7.5-11.1); MONO % 6.2 % (3.8-10.2); NEUT % 71.2 % (42.8-82.8); PLATELET COUNT 288 10^3/uL (134-434); RBC 4.06 M/mm3 (3.60-5.2); RDW 17.3 % (11.6-15.6); WHITE BLOOD COUNT 9.9 K/mm3 (4.0-10.0)
[2022-09-15 10:08] LABS: CALCIUM 8.6 mg/dL (8.5-10.1)
[2022-09-15 10:09] LABS: ALBUMIN 3.3 g/dl (3.4-5.0); MAGNESIUM 2.3 mg/dL (1.8-2.4)
[2022-09-15 10:12] LABS: CREATININE 1.2 mg/dL (0.55-1.3); PHOSPHOROUS 3.8 mg/dL (2.5-4.9)
[2022-09-15 10:13] LABS: TOT PROT 6.4 g/dl (6.4-8.2)
[2022-09-15 10:14] LABS: BILIRUBIN,TOTAL 1.4 mg/dL (0.2-1)
[2022-09-15] MEDS: FUROSEMIDE 40 MG/4 ML INJECTABLE VIAL IVPUSH SCH ×2 (11:03→12:34)
[2022-09-15] MEDS: ASPIRIN 81 MG CHEWABLE TABLETS PO SCH (12:33)
[2022-09-15] MEDS: LOSARTAN POTASSIUM 50 MG TABLET PO SCH (12:33)
[2022-09-15] MEDS: ENOXAPARIN NA (PORCINE) 40 MG/0.4 ML DISP.SYRIN SQ SCH (12:33)
[2022-09-15] MEDS: PARoxetine HCL 20 MG TABLET PO SCH (12:33)
[2022-09-15 13:49] VITALS: BMI 42.9
[2022-09-15] MEDS: ALBUTEROL SO4 0.083% IH SOL 2.5 MG/3 ML VIAL.NEB. NEB PRN (15:35)
[2022-09-15] MEDS: BUDESONIDE/FORMETEROL FUMARATE 160/4.5 mcg INHALER IH SCH ×2 (15:36→21:15)
[2022-09-15] MEDS: TIOTROPIUM BROMIDE 2.5 MCG (SPIRIVA) RESPIMAT INHALER IH SCH (15:52)
[2022-09-15] MEDS: ZOLPIDEM TARTRATE 5 MG TABLET PO PRN (21:14)
[2022-09-15] MEDS: ATORVASTATIN CA 20 MG TABLET (FP) PO SCH (21:15)
[2022-09-16] MEDS: LEVOTHYROXINE NA 125 MCG TABLET (FP) PO SCH (06:24)
[2022-09-16] MEDS: busPIRone HCL 5 MG TABLET PO SCH ×3 (06:24→20:59)
[2022-09-16] MEDS: PARoxetine HCL 20 MG TABLET PO SCH (10:41)
[2022-09-16] MEDS: LOSARTAN POTASSIUM 50 MG TABLET PO SCH (10:41)
[2022-09-16] MEDS: ASPIRIN 81 MG CHEWABLE TABLETS PO SCH (10:41)
[2022-09-16] MEDS: ENOXAPARIN NA (PORCINE) 40 MG/0.4 ML DISP.SYRIN SQ SCH (10:41)
[2022-09-16] MEDS: TIOTROPIUM BROMIDE 2.5 MCG (SPIRIVA) RESPIMAT INHALER IH SCH (10:42)
[2022-09-16] MEDS: BUDESONIDE/FORMETEROL FUMARATE 160/4.5 mcg INHALER IH SCH ×2 (10:42→20:59)
[2022-09-16] MEDS: FUROSEMIDE 40 MG/4 ML INJECTABLE VIAL IVPUSH SCH ×2 (10:43→14:31)
[2022-09-16] MEDS: ZOLPIDEM TARTRATE 5 MG TABLET PO PRN (20:59)
[2022-09-16] MEDS: ATORVASTATIN CA 20 MG TABLET (FP) PO SCH (20:59)
[2022-09-17] MEDS: busPIRone HCL 5 MG TABLET PO SCH ×3 (05:08→21:35)
[2022-09-17] MEDS: FUROSEMIDE 40 MG/4 ML INJECTABLE VIAL IVPUSH SCH ×3 (05:09→14:23)
[2022-09-17] MEDS: LEVOTHYROXINE NA 125 MCG TABLET (FP) PO SCH (06:32)
[2022-09-17] MEDS: PANTOPRAZOLE 40 MG TABLET PO SCH (09:44)
[2022-09-17] MEDS: ASPIRIN 81 MG CHEWABLE TABLETS PO SCH (09:44)
[2022-09-17] MEDS: ENOXAPARIN NA (PORCINE) 40 MG/0.4 ML DISP.SYRIN SQ SCH (09:44)
[2022-09-17] MEDS: LOSARTAN POTASSIUM 25 MG TABLET PO SCH (09:44)
[2022-09-17] MEDS: PARoxetine HCL 20 MG TABLET PO SCH (09:44)
[2022-09-17] MEDS: BUDESONIDE/FORMETEROL FUMARATE 160/4.5 mcg INHALER IH SCH ×2 (09:45→21:39)
[2022-09-17] MEDS: TIOTROPIUM BROMIDE 2.5 MCG (SPIRIVA) RESPIMAT INHALER IH SCH (09:45)
[2022-09-17 10:36] LABS: HEMATOCRIT 33.8 % (32.4-45.2); HEMOGLOBIN 11.1 GM/dL (10.7-15.3); MEAN PLT VOLUME 7.5 fl (7.5-11.1); PLATELET COUNT 266 10^3/uL (134-434); RBC 3.98 M/mm3 (3.60-5.2); RDW 17.3 % (11.6-15.6); WHITE BLOOD COUNT 8.2 K/mm3 (4.0-10.0)
[2022-09-17 10:58] LABS: CALCIUM 8.5 mg/dL (8.5-10.1); CHOLESTEROL 175 mg/dL (50-200); TRIGLYCERIDES 156 mg/dL (0-150)
[2022-09-17 10:59] LABS: BLOOD UREA NITROGEN 29.9 mg/dL (7-18); LDL CHOLESTEROL (ONLY SJRH) 87 mg/dL (5-100)
[2022-09-17 11:00] LABS: HDL CHOLESTEROL 69 mg/dL (40-60)
[2022-09-17 11:02] LABS: CREATININE 1.2 mg/dL (0.55-1.3)
[2022-09-17 11:03] LABS: IRON SERUM 72 ug/dL (50-175); TOTAL IRON BINDING CAPACITY 365 ug/dL (250-450)
[2022-09-17 11:04] LABS: BILIRUBIN,TOTAL 1.9 mg/dL (0.2-1); IRON SERUM 73 ug/dL (50-175)
[2022-09-17] MEDS: ATORVASTATIN CA 20 MG TABLET (FP) PO SCH (21:35)
[2022-09-17] MEDS: ACETAMINOPHEN 325 MG TABLET (FP) PO PRN (21:35)
[2022-09-17] MEDS: ZOLPIDEM TARTRATE 5 MG TABLET PO PRN (21:38)
[2022-09-18] MEDS: FUROSEMIDE 40 MG/4 ML INJECTABLE VIAL IVPUSH SCH ×2 (06:06→14:00)
[2022-09-18] MEDS: busPIRone HCL 5 MG TABLET PO SCH ×3 (06:06→21:39)
[2022-09-18] MEDS: LEVOTHYROXINE NA 125 MCG TABLET (FP) PO SCH (06:06)
[2022-09-18] MEDS: LOSARTAN POTASSIUM 25 MG TABLET PO SCH (09:53)
[2022-09-18] MEDS: ASPIRIN 81 MG CHEWABLE TABLETS PO SCH (09:53)
[2022-09-18] MEDS: ENOXAPARIN NA (PORCINE) 40 MG/0.4 ML DISP.SYRIN SQ SCH (09:53)
[2022-09-18] MEDS: ACETAMINOPHEN 325 MG TABLET (FP) PO PRN ×2 (09:54→17:40)
[2022-09-18] MEDS: PANTOPRAZOLE 40 MG TABLET PO SCH (09:54)
[2022-09-18] MEDS: PARoxetine HCL 20 MG TABLET PO SCH (09:54)
[2022-09-18] MEDS: TIOTROPIUM BROMIDE 2.5 MCG (SPIRIVA) RESPIMAT INHALER IH SCH (09:55)
[2022-09-18] MEDS: BUDESONIDE/FORMETEROL FUMARATE 160/4.5 mcg INHALER IH SCH ×2 (09:55→21:39)
[2022-09-18 10:21] LABS: CALCIUM 8.4 mg/dL (8.5-10.1)
[2022-09-18 10:22] LABS: BLOOD UREA NITROGEN 24.1 mg/dL (7-18)
[2022-09-18 10:25] LABS: CREATININE 1.2 mg/dL (0.55-1.3)
[2022-09-18] MEDS: POTASSIUM CHLORIDE TABS 20 MEQ TABLET.ER (FP) PO SCH (12:45)
[2022-09-18] MEDS: ATORVASTATIN CA 20 MG TABLET (FP) PO SCH (21:39)
[2022-09-18] MEDS: ZOLPIDEM TARTRATE 5 MG TABLET PO PRN (21:42)
[2022-09-19] MEDS: FUROSEMIDE 40 MG/4 ML INJECTABLE VIAL IVPUSH SCH ×2 (06:26→13:49)
[2022-09-19] MEDS: busPIRone HCL 5 MG TABLET PO SCH ×3 (06:26→21:50)
[2022-09-19] MEDS: LEVOTHYROXINE NA 125 MCG TABLET (FP) PO SCH (06:28)
[2022-09-19] MEDS: PANTOPRAZOLE 40 MG TABLET PO SCH (09:46)
[2022-09-19] MEDS: ENOXAPARIN NA (PORCINE) 40 MG/0.4 ML DISP.SYRIN SQ SCH (09:46)
[2022-09-19] MEDS: PARoxetine HCL 20 MG TABLET PO SCH (09:46)
[2022-09-19] MEDS: POTASSIUM CHLORIDE TABS 20 MEQ TABLET.ER (FP) PO SCH (09:46)
[2022-09-19] MEDS: ACETAMINOPHEN 325 MG TABLET (FP) PO PRN ×2 (09:46→21:49)
[2022-09-19] MEDS: ASPIRIN 81 MG CHEWABLE TABLETS PO SCH (09:46)
[2022-09-19] MEDS: LOSARTAN POTASSIUM 25 MG TABLET PO SCH (09:46)
[2022-09-19] MEDS: BUDESONIDE/FORMETEROL FUMARATE 160/4.5 mcg INHALER IH SCH ×2 (09:47→21:51)
[2022-09-19] MEDS: TIOTROPIUM BROMIDE 2.5 MCG (SPIRIVA) RESPIMAT INHALER IH SCH (09:47)
[2022-09-19 12:27] LABS: CALCIUM 8.2 mg/dL (8.5-10.1)
[2022-09-19 12:28] LABS: BLOOD UREA NITROGEN 20.4 mg/dL (7-18)
[2022-09-19 12:32] LABS: CREATININE 1.1 mg/dL (0.55-1.3)
[2022-09-19] MEDS: ZOLPIDEM TARTRATE 5 MG TABLET PO PRN (21:49)
[2022-09-19] MEDS: ATORVASTATIN CA 20 MG TABLET (FP) PO SCH (21:50)
[2022-09-20] MEDS: ACETAMINOPHEN 325 MG TABLET (FP) PO PRN ×4 (01:33→19:56)
[2022-09-20] MEDS: busPIRone HCL 5 MG TABLET PO SCH ×3 (05:57→21:08)
[2022-09-20] MEDS: FUROSEMIDE 40 MG/4 ML INJECTABLE VIAL IVPUSH SCH ×2 (05:57→13:41)
[2022-09-20] MEDS: LEVOTHYROXINE NA 125 MCG TABLET (FP) PO SCH (06:01)
[2022-09-20] MEDS: LOSARTAN POTASSIUM 25 MG TABLET PO SCH (09:56)
[2022-09-20] MEDS: POTASSIUM CHLORIDE TABS 20 MEQ TABLET.ER (FP) PO SCH (09:56)
[2022-09-20] MEDS: ENOXAPARIN NA (PORCINE) 40 MG/0.4 ML DISP.SYRIN SQ SCH (09:59)
[2022-09-20] MEDS: PARoxetine HCL 20 MG TABLET PO SCH (09:59)
[2022-09-20] MEDS: ASPIRIN 81 MG CHEWABLE TABLETS PO SCH (09:59)
[2022-09-20] MEDS: PANTOPRAZOLE 40 MG TABLET PO SCH (10:00)
[2022-09-20] MEDS: BUDESONIDE/FORMETEROL FUMARATE 160/4.5 mcg INHALER IH SCH ×2 (10:06→21:08)
[2022-09-20] MEDS: TIOTROPIUM BROMIDE 2.5 MCG (SPIRIVA) RESPIMAT INHALER IH SCH (10:06)
[2022-09-20] MEDS: ZOLPIDEM TARTRATE 5 MG TABLET PO PRN (21:08)
[2022-09-20] MEDS: ATORVASTATIN CA 20 MG TABLET (FP) PO SCH (21:08)
[2022-09-21] MEDS: LEVOTHYROXINE NA 125 MCG TABLET (FP) PO SCH (06:25)
[2022-09-21] MEDS: busPIRone HCL 5 MG TABLET PO SCH ×3 (06:25→21:01)
[2022-09-21] MEDS: FUROSEMIDE 40 MG/4 ML INJECTABLE VIAL IVPUSH SCH ×2 (06:26→15:49)
[2022-09-21] MEDS: ACETAMINOPHEN 325 MG TABLET (FP) PO PRN ×2 (06:29→20:31)
[2022-09-21] MEDS ORDERED: POLYETHYLENE GLYCOL (HEALTHYLAX) 3350 17 GM PACKET PO PRN (11:10)
[2022-09-21] MEDS ORDERED: FUROSEMIDE 40 MG TABLET (FP) PO SCH (11:15)
[2022-09-21] MEDS: TIOTROPIUM BROMIDE 2.5 MCG (SPIRIVA) RESPIMAT INHALER IH SCH (11:23)
[2022-09-21] MEDS: PANTOPRAZOLE 40 MG TABLET PO SCH (11:24)
[2022-09-21] MEDS: PARoxetine HCL 20 MG TABLET PO SCH (11:24)
[2022-09-21] MEDS: SPIRONOLACTONE 25 MG TABLET PO SCH (11:24)
[2022-09-21] MEDS: ENOXAPARIN NA (PORCINE) 40 MG/0.4 ML DISP.SYRIN SQ SCH (11:24)
[2022-09-21] MEDS: POTASSIUM CHLORIDE TABS 20 MEQ TABLET.ER (FP) PO SCH (11:24)
[2022-09-21] MEDS: BUDESONIDE/FORMETEROL FUMARATE 160/4.5 mcg INHALER IH SCH ×2 (11:24→21:01)
[2022-09-21] MEDS: LOSARTAN POTASSIUM 25 MG TABLET PO SCH (11:24)
[2022-09-21] MEDS: ASPIRIN 81 MG CHEWABLE TABLETS PO SCH (11:24)
[2022-09-21 11:26] LABS: CALCIUM 8.6 mg/dL (8.5-10.1)
[2022-09-21 11:30] LABS: CREATININE 1.2 mg/dL (0.55-1.3)
[2022-09-21] MEDS ORDERED: ZOLPIDEM TARTRATE 5 MG TABLET PO ONE (20:50)
[2022-09-21] MEDS: ATORVASTATIN CA 20 MG TABLET (FP) PO SCH (21:01)
[2022-09-22] MEDS: ACETAMINOPHEN 325 MG TABLET (FP) PO PRN ×2 (02:59→22:46)
[2022-09-22] MEDS: busPIRone HCL 5 MG TABLET PO SCH ×3 (05:58→21:05)
[2022-09-22] MEDS: FUROSEMIDE 40 MG/4 ML INJECTABLE VIAL IVPUSH SCH ×2 (06:00→14:12)
[2022-09-22] MEDS: LEVOTHYROXINE NA 125 MCG TABLET (FP) PO SCH (06:04)
[2022-09-22] MEDS: PARoxetine HCL 20 MG TABLET PO SCH (09:45)
[2022-09-22] MEDS: ASPIRIN 81 MG CHEWABLE TABLETS PO SCH (09:45)
[2022-09-22] MEDS: PANTOPRAZOLE 40 MG TABLET PO SCH (09:46)
[2022-09-22] MEDS: POTASSIUM CHLORIDE TABS 20 MEQ TABLET.ER (FP) PO SCH (09:46)
[2022-09-22] MEDS: LOSARTAN POTASSIUM 25 MG TABLET PO SCH (09:46)
[2022-09-22] MEDS: SPIRONOLACTONE 25 MG TABLET PO SCH (09:46)
[2022-09-22] MEDS: BUDESONIDE/FORMETEROL FUMARATE 160/4.5 mcg INHALER IH SCH ×2 (09:47→21:05)
[2022-09-22] MEDS: TIOTROPIUM BROMIDE 2.5 MCG (SPIRIVA) RESPIMAT INHALER IH SCH (09:47)
[2022-09-22] MEDS: ENOXAPARIN NA (PORCINE) 40 MG/0.4 ML DISP.SYRIN SQ SCH (09:49)
[2022-09-22 11:51] LABS: BASO % 0.7 % (0-2.0); EOS % 2.7 % (0-4.5); HEMOGLOBIN 10.8 GM/dL (10.7-15.3); LYMPH % 21.1 % (8-40); MCH 27.8 pg (25.7-33.7); MCHC 32.6 g/dl (32.0-36.0); MEAN CELL VOLUME 85.2 fl (80-96); MONO % 6.1 % (3.8-10.2); NEUT % 69.4 % (42.8-82.8); PLATELET COUNT 198 10^3/uL (134-434); RBC 3.87 M/mm3 (3.60-5.2); RDW 17.3 % (11.6-15.6); WHITE BLOOD COUNT 4.5 K/mm3 (4.0-10.0)
[2022-09-22 12:43] LABS: CALCIUM 8.6 mg/dL (8.5-10.1); MAGNESIUM 2.1 mg/dL (1.8-2.4)
[2022-09-22 12:44] LABS: ALBUMIN 3.1 g/dl (3.4-5.0)
[2022-09-22 12:45] LABS: CREATININE 1.1 mg/dL (0.55-1.3)
[2022-09-22 12:47] LABS: BILIRUBIN,TOTAL 0.7 mg/dL (0.2-1); TOT PROT 6.4 g/dl (6.4-8.2)
[2022-09-22] MEDS: ZOLPIDEM TARTRATE 5 MG TABLET PO PRN (21:05)
[2022-09-22] MEDS: ATORVASTATIN CA 20 MG TABLET (FP) PO SCH (21:05)
[2022-09-23] MEDS: FUROSEMIDE 40 MG TABLET (FP) PO SCH ×2 (06:29→13:43)
[2022-09-23] MEDS: busPIRone HCL 5 MG TABLET PO SCH ×3 (06:29→21:58)
[2022-09-23] MEDS: LEVOTHYROXINE NA 125 MCG TABLET (FP) PO SCH (06:29)
[2022-09-23] MEDS: ALBUTEROL SO4 0.083% IH SOL 2.5 MG/3 ML VIAL.NEB. NEB PRN (09:53)
[2022-09-23] MEDS: BUDESONIDE/FORMETEROL FUMARATE 160/4.5 mcg INHALER IH SCH ×2 (10:40→21:58)
[2022-09-23] MEDS: POTASSIUM CHLORIDE TABS 20 MEQ TABLET.ER (FP) PO SCH (10:41)
[2022-09-23] MEDS: ASPIRIN 81 MG CHEWABLE TABLETS PO SCH (10:42)
[2022-09-23] MEDS: SPIRONOLACTONE 25 MG TABLET PO SCH (10:42)
[2022-09-23] MEDS: PANTOPRAZOLE 40 MG TABLET PO SCH (10:42)
[2022-09-23] MEDS: LOSARTAN POTASSIUM 25 MG TABLET PO SCH (10:42)
[2022-09-23] MEDS: PARoxetine HCL 20 MG TABLET PO SCH (10:42)
[2022-09-23] MEDS: TIOTROPIUM BROMIDE 2.5 MCG (SPIRIVA) RESPIMAT INHALER IH SCH (10:42)
[2022-09-23 11:00] LABS: HEMOGLOBIN 11.3 GM/dL (10.7-15.3); MCHC 32.4 g/dl (32.0-36.0); MEAN CELL VOLUME 86.5 fl (80-96); MEAN PLT VOLUME 7.9 fl (7.5-11.1); PLATELET COUNT 215 10^3/uL (134-434); RBC 4.05 M/mm3 (3.60-5.2); RDW 17.2 % (11.6-15.6); WHITE BLOOD COUNT 4.2 K/mm3 (4.0-10.0)
[2022-09-23 11:40] LABS: ALBUMIN 3.4 g/dl (3.4-5.0); CALCIUM 9.2 mg/dL (8.5-10.1)
[2022-09-23 11:41] LABS: BLOOD UREA NITROGEN 21.9 mg/dL (7-18)
[2022-09-23 11:44] LABS: CREATININE 1.1 mg/dL (0.55-1.3)
[2022-09-23 11:45] LABS: BILIRUBIN,TOTAL 0.7 mg/dL (0.2-1); TOT PROT 6.9 g/dl (6.4-8.2)
[2022-09-23] MEDS: ACETAMINOPHEN 325 MG TABLET (FP) PO PRN ×2 (15:14→19:59)
[2022-09-23] MEDS: ATORVASTATIN CA 20 MG TABLET (FP) PO SCH (21:59)
[2022-09-23] MEDS: ZOLPIDEM TARTRATE 5 MG TABLET PO PRN (21:59)
[2022-09-24] MEDS: FUROSEMIDE 40 MG TABLET (FP) PO SCH ×2 (06:33→13:28)
[2022-09-24] MEDS: LEVOTHYROXINE NA 125 MCG TABLET (FP) PO SCH (06:33)
[2022-09-24] MEDS: busPIRone HCL 5 MG TABLET PO SCH ×3 (06:33→21:02)
[2022-09-24] MEDS: BUDESONIDE/FORMETEROL FUMARATE 160/4.5 mcg INHALER IH SCH ×2 (09:21→21:02)
[2022-09-24] MEDS: TIOTROPIUM BROMIDE 2.5 MCG (SPIRIVA) RESPIMAT INHALER IH SCH (09:21)
[2022-09-24] MEDS: PARoxetine HCL 20 MG TABLET PO SCH (09:21)
[2022-09-24] MEDS: ASPIRIN 81 MG CHEWABLE TABLETS PO SCH (09:21)
[2022-09-24] MEDS: SPIRONOLACTONE 25 MG TABLET PO SCH (09:22)
[2022-09-24] MEDS: POTASSIUM CHLORIDE TABS 20 MEQ TABLET.ER (FP) PO SCH (09:22)
[2022-09-24] MEDS: LOSARTAN POTASSIUM 25 MG TABLET PO SCH (09:22)
[2022-09-24] MEDS: PANTOPRAZOLE 40 MG TABLET PO SCH (09:26)
[2022-09-24 10:05] VITALS: RESP 18
[2022-09-24] MEDS: ATORVASTATIN CA 20 MG TABLET (FP) PO SCH (21:02)
[2022-09-24] MEDS: ZOLPIDEM TARTRATE 5 MG TABLET PO PRN (21:02)
[2022-09-25] MEDS: ACETAMINOPHEN 325 MG TABLET (FP) PO PRN (05:31)
[2022-09-25] MEDS: busPIRone HCL 5 MG TABLET PO SCH ×2 (05:51→13:45)
[2022-09-25] MEDS: FUROSEMIDE 40 MG TABLET (FP) PO SCH ×2 (05:51→13:45)
[2022-09-25] MEDS: LEVOTHYROXINE NA 125 MCG TABLET (FP) PO SCH (06:13)
[2022-09-25 06:23] VITALS: BP 118/51; PULSE 73; TEMP 97.5
[2022-09-25] MEDS: ASPIRIN 81 MG CHEWABLE TABLETS PO SCH (10:15)
[2022-09-25] MEDS: POTASSIUM CHLORIDE TABS 20 MEQ TABLET.ER (FP) PO SCH (10:15)
[2022-09-25] MEDS: BUDESONIDE/FORMETEROL FUMARATE 160/4.5 mcg INHALER IH SCH (10:16)
[2022-09-25] MEDS: SPIRONOLACTONE 25 MG TABLET PO SCH (10:16)
[2022-09-25] MEDS: LOSARTAN POTASSIUM 25 MG TABLET PO SCH (10:16)
[2022-09-25] MEDS: PARoxetine HCL 20 MG TABLET PO SCH (10:16)
[2022-09-25] MEDS: PANTOPRAZOLE 40 MG TABLET PO SCH (10:16)
[2022-09-25] MEDS: TIOTROPIUM BROMIDE 2.5 MCG (SPIRIVA) RESPIMAT INHALER IH SCH (10:17)
== END 2022-09-25 16:57 | disposition home health service (06) | DRG 291 ==
LOC: JER 14:55 → JERBED 18:34 → J6S 09-15 12:17
PROVIDERS: ADMIT Internal Medicine; ATTEND Internal Medicine
DX: I11.0 Hypertensive heart disease with heart failure (principal); I50.33 Acute on chronic diastolic (congestive) heart failure; J44.1 Chronic obstructive pulmonary disease with (acute) exacerbation; Z68.41 Body mass index [BMI] 40.0-44.9, adult; I27.20 Pulmonary hypertension, unspecified; E03.9 Hypothyroidism, unspecified; E78.5 Hyperlipidemia, unspecified; R60.0 Localized edema; E66.01 Morbid (severe) obesity due to excess calories; G47.33 Obstructive sleep apnea (adult) (pediatric); I35.0 Nonrheumatic aortic (valve) stenosis; I35.1 Nonrheumatic aortic (valve) insufficiency; Z95.5 Presence of coronary angioplasty implant and graft; I25.119 Atherosclerotic heart disease of native coronary artery with unspecified angina pectoris
CPT/HCPCS: 0241U-QW; 36415; 71045-TC-FY; 80048; 80053; 80061; 82728; 83036; 83540; 83550; 83735; 83880; 84100; 84443; 84484; 85025; 85027; 85610; 85730; 93005; 93010; 93306-TC; 93970-TC; 94640; 99285-25

== ENCOUNTER 2023-03-12 11:30 | Inpatient (IN) | payer OTHER, BC ==
[2023-03-12] MEDS ORDERED: ROCURONIUM BROMIDE 50 MG/5 ML VIAL IV ONE (12:01)
[2023-03-12] MEDS ORDERED: ETOMIDATE 40 MG/20 ML VIAL IVPUSH ONE (12:02)
[2023-03-12 12:13] LABS: ARTERIAL BLD GAS O2 SATURATION 94.9 % (95-98); ARTERIAL BLOOD GAS BASE EXCESS -9.6 mmol/L (-2-2); ARTERIAL BLOOD GAS PO2 100.2 mmHg (80-100)
[2023-03-12] MEDS ORDERED: MIDAZOLAM 100 MG in SODIUM CHLORIDE 100 ML IVPB SCH (12:15)
[2023-03-12 12:20] LABS: ALLENS TEST POSITIVE
[2023-03-12 12:21] LABS: VENT MODE A/C; VENT RATE 18
[2023-03-12 12:24] LABS: ARTERIAL BLOOD GAS pH 7.098 (7.350-7.450)
[2023-03-12] MEDS: FENTANYL IVPB 500 MCG/100 ML BAG IVPB SCH (12:27)
[2023-03-12] MEDS: ALBUTEROL SO4 2.5/IPRATROPIUM 0.5 INH SOL 3 ML VIAL.NEB. NEB SCH ×5 (12:30→20:13)
[2023-03-12 12:32] LABS: HEMATOCRIT 38.1 % (32.4-45.2); HEMOGLOBIN 11.6 GM/dL (10.7-15.3); MCH 24.2 pg (25.7-33.7); MCHC 30.5 g/dl (32.0-36.0); MEAN CELL VOLUME 79.5 fl (80-96); MEAN PLT VOLUME 8.4 fl (7.5-11.1); PLATELET COUNT 464 10^3/uL (134-434); RBC 4.79 M/mm3 (3.60-5.2); WHITE BLOOD COUNT 25.4 K/mm3 (4.0-10.0)
[2023-03-12] MEDS ORDERED: MAGNESIUM SULF 50% (8.12 MEQ/2 ML-1 GM VIAL) IVPB ONE (12:32)
[2023-03-12 12:33] LABS: VENOUS BASE EXCESS -13.3 mmol/L (-2-2); VENOUS O2 SATURATION 86.2 % (70-80)
[2023-03-12 12:37] LABS: VENOUS PCO2 97.1 mmHg (38-52); VENOUS PH 6.942 (7.310-7.410)
[2023-03-12 12:39] LABS: INR 1.08 (0.83-1.09); PROTHROMBIN TIME (PATIENT) 12.5 SEC (9.7-13.0)
[2023-03-12] MEDS ORDERED: CEFTRIAXONE 1,000 MG in DEXTROSE 5%-WATER - 50 ML IVPB ONE (12:39)
[2023-03-12] MEDS ORDERED: AZITHROMYCIN IVPB 500 MG in DEXTROSE 5%-WATER - 250 ML IVPB ONE (12:39)
[2023-03-12 12:41] LABS: ACTIVATED PTT 21.7 SECONDS (25.2-36.5)
[2023-03-12 12:57] LABS: ANISOCYTOSIS 0; MACROCYTOSIS 0
[2023-03-12] MEDS ORDERED: AZITHROMYCIN IVPB 500 MG/250 ML BAG IVPB ONE ×2 (12:58→20:00)
[2023-03-12] MEDS ORDERED: CEFTRIAXONE 1 GM/50 ML BAG ONE (12:58)
[2023-03-12 12:59] LABS: LACTIC ACID 2.4 mmol/L (0.4-2.0)
[2023-03-12] MEDS ORDERED: VANCOMYCIN 1 GM in D5W (PRE-DOCKED) 1,000 MG/250 ML (RESTRICTED TO ID ONLY IVPB SCH (13:00)
[2023-03-12 13:02] LABS: ALBUMIN 3.6 g/dl (3.4-5.0); POTASSIUM 5.6 mmol/L (3.5-5.1)
[2023-03-12 13:03] LABS: MAGNESIUM 2.5 mg/dL (1.8-2.4)
[2023-03-12 13:04] LABS: BLOOD UREA NITROGEN 31.4 mg/dL (7-18)
[2023-03-12 13:05] LABS: CREATININE 1.5 mg/dL (0.55-1.3)
[2023-03-12 13:07] LABS: TOT PROT 7.9 g/dl (6.4-8.2)
[2023-03-12 13:11] LABS: N-TERMINAL BNP 1267.2 pg/ml (5-125)
[2023-03-12] MEDS ORDERED: methylPREDNISolone NA SUCC 40 MG/1 ML VIAL IVPUSH ONE (13:11)
[2023-03-12 13:14] LABS: BILIRUBIN,TOTAL 0.7 mg/dL (0.2-1)
[2023-03-12 13:30] LABS: EPI CELLS 12 /uL (0-25.1); HYALINE CASTS 1 /uL (0-3.1); PH,URINE 5.5 (5.0-8.0); URINE APPEARANCE CLEAR; URINE BACTERIA 33 /uL (0-1359); URINE BILIRUBIN NEGATIVE (NEGATIVE); URINE COLOR YELLOW; URINE GLUCOSE (UA) NEGATIVE (NEGATIVE); URINE KETONE NEGATIVE (NEGATIVE); URINE LEUK ESTERASE NEGATIVE (NEGATIVE); URINE NITRITE NEGATIVE (NEGATIVE); URINE PROTEIN 2+ (NEGATIVE); URINE RBC 17 /uL (0-23.9); URINE UROBILINOGEN 0.2 mg/dL (0.2-1.0); URINE WBC 9 /uL (0-25.8)
[2023-03-12] MEDS ORDERED: SODIUM BICARBONATE 8.4% 50 MEQ/50 ML DISP.SYRIN IVPUSH ONE ×2 (14:37)
[2023-03-12] MEDS ORDERED: PIPERACILLIN/TAZOB 3.375 GM 3.375 GM in DEXTROSE 5%-WATER - 50 ML IVPB SCH (15:00)
[2023-03-12 15:17] LABS: ARTERIAL BLD GAS O2 SATURATION 98.2 % (95-98); ARTERIAL BLOOD GAS BASE EXCESS -6.9 mmol/L (-2-2); ARTERIAL BLOOD GAS PO2 149.1 mmHg (80-100); ARTERIAL BLOOD GAS pH 7.139 (7.350-7.450)
[2023-03-12 15:20] LABS: ALLENS TEST POSITIVE; VENT MODE A/C
[2023-03-12 15:21] LABS: VENT RATE 18
[2023-03-12] MEDS: PROPOFOL 1,000,000 MCG/100 ML VIAL IVPB SCH ×2 (16:00→21:08)
[2023-03-12] MEDS: FUROSEMIDE 40 MG/4 ML INJECTABLE VIAL IVPUSH SCH (16:25)
[2023-03-12] MEDS: HEPARIN NA (PORCINE) 5,000 UNITS/ML 1ML VIAL SQ SCH ×2 (16:25→21:07)
[2023-03-12] MEDS: PIPERACILLIN/TAZOB 3.375 GM 3.375 GM in DEXTROSE 5%-WATER - 50 ML IVPB SCH ×2 (16:26→21:07)
[2023-03-12] MEDS: CEFTRIAXONE 1 GM in DEXTROSE 5%-WATER - 50 ML IVPB SCH (16:28)
[2023-03-12] MEDS ORDERED: VANCOMYCIN 1 GM/200 ML PREMIX BAG (RESTRICTED TO ID ONLY) IVPB ONE (16:45)
[2023-03-12] MEDS ORDERED: SODIUM BICARBONATE 8.4% - 150 MEQ in DEXTROSE 5%-WATER - 950 ML IVPB SCH (17:00)
[2023-03-12] MEDS: MUPIROCIN 2% TOPICAL OINTMENT FOR DECOLONIZATION NS SCH ×2 (18:54→21:04)
[2023-03-12] MEDS: CHLORHEXIDINE GLUCONATE 4% CLEANSER FOR DECOLONIZATION TP SCH (21:03)
[2023-03-12] MEDS: LEVOTHYROXINE SODIUM 100 MCG 5 ML VIAL IVPUSH SCH (21:03)
[2023-03-12] MEDS: BUDESONIDE/FORMETEROL FUMARATE 160/4.5 mcg INHALER IH SCH (21:03)
[2023-03-12] MEDS: methylPREDNISolone NA SUCC 40 MG/1 ML VIAL IVPUSH SCH (21:07)
[2023-03-12] MEDS: ATORVASTATIN CA 10 MG TABLET (FP) PO SCH (21:08)
[2023-03-12 21:16] LABS: ARTERIAL BLD GAS O2 SATURATION 98.7 % (95-98); ARTERIAL BLOOD GAS BASE EXCESS -0.1 mmol/L (-2-2); ARTERIAL BLOOD GAS PO2 146.6 mmHg (80-100); ARTERIAL BLOOD GAS pH 7.319 (7.350-7.450)
[2023-03-12 21:18] LABS: ALLENS TEST POSITIVE; VENT MODE A/C
[2023-03-12 21:19] LABS: VENT RATE 18
[2023-03-13] MEDS: PROPOFOL 1,000,000 MCG/100 ML VIAL IVPB SCH ×2 (01:42→15:06)
[2023-03-13] MEDS: PIPERACILLIN/TAZOB 3.375 GM 3.375 GM in DEXTROSE 5%-WATER - 50 ML IVPB SCH (03:30)
[2023-03-13] MEDS: methylPREDNISolone NA SUCC 40 MG/1 ML VIAL IVPUSH SCH ×3 (05:48→21:27)
[2023-03-13] MEDS: HEPARIN NA (PORCINE) 5,000 UNITS/ML 1ML VIAL SQ SCH ×3 (05:49→21:26)
[2023-03-13 06:20] LABS: ARTERIAL BLOOD GAS BASE EXCESS 3.9 mmol/L (-2-2); ARTERIAL BLOOD GAS PO2 151.8 mmHg (80-100)
[2023-03-13 06:24] LABS: ALLENS TEST POSITIVE
[2023-03-13 06:25] LABS: VENT MODE A/C; VENT RATE 22
[2023-03-13 07:31] LABS: HEMOGLOBIN 10.1 GM/dL (10.7-15.3); MCH 24.7 pg (25.7-33.7); MCHC 32.5 g/dl (32.0-36.0); MEAN CELL VOLUME 76.1 fl (80-96); MEAN PLT VOLUME 8.5 fl (7.5-11.1); PLATELET COUNT 244 10^3/uL (134-434); RBC 4.07 M/mm3 (3.60-5.2); RDW 18.5 % (11.6-15.6); WHITE BLOOD COUNT 16.3 K/mm3 (4.0-10.0)
[2023-03-13 07:43] LABS: POTASSIUM 4.2 mmol/L (3.5-5.1)
[2023-03-13 07:45] LABS: CALCIUM 8.3 mg/dL (8.5-10.1)
[2023-03-13 07:46] LABS: ALBUMIN 3.1 g/dl (3.4-5.0); BLOOD UREA NITROGEN 32.6 mg/dL (7-18); MAGNESIUM 2.3 mg/dL (1.8-2.4)
[2023-03-13 07:49] LABS: CREATININE 1.4 mg/dL (0.55-1.3)
[2023-03-13 07:50] LABS: BILIRUBIN,TOTAL 0.6 mg/dL (0.2-1); TOT PROT 6.4 g/dl (6.4-8.2)
[2023-03-13] MEDS: ALBUTEROL SO4 2.5/IPRATROPIUM 0.5 INH SOL 3 ML VIAL.NEB. NEB SCH ×4 (08:00→20:05)
[2023-03-13 09:15] LABS: ANISOCYTOSIS 2+; MACROCYTOSIS 0; OVALOCYTE 2+
[2023-03-13] MEDS: FENTANYL IVPB 500 MCG/100 ML BAG IVPB SCH (10:00)
[2023-03-13] MEDS ORDERED: TIOTROPIUM BROMIDE 2.5 MCG (SPIRIVA) RESPIMAT INHALER IH SCH (10:00)
[2023-03-13] MEDS ORDERED: VANCOMYCIN 1 GM in D5W (PRE-DOCKED) 1,000 MG/250 ML (RESTRICTED TO ID ONLY IVPB SCH (10:00)
[2023-03-13] MEDS: PANTOPRAZOLE SODIUM 40 MG VIAL IVPUSH SCH (10:15)
[2023-03-13] MEDS: FUROSEMIDE 40 MG/4 ML INJECTABLE VIAL IVPUSH SCH (10:15)
[2023-03-13] MEDS: CEFTRIAXONE 1 GM in DEXTROSE 5%-WATER - 50 ML IVPB SCH (10:15)
[2023-03-13] MEDS: ASPIRIN 81 MG CHEWABLE TABLETS PO SCH (10:15)
[2023-03-13] MEDS: BUDESONIDE/FORMETEROL FUMARATE 160/4.5 mcg INHALER IH SCH ×2 (10:16→21:27)
[2023-03-13] MEDS: LEVOTHYROXINE SODIUM 100 MCG 5 ML VIAL IVPUSH SCH (11:00)
[2023-03-13] MEDS: MUPIROCIN 2% TOPICAL OINTMENT FOR DECOLONIZATION NS SCH ×2 (13:19→21:30)
[2023-03-13] MEDS: ATORVASTATIN CA 10 MG TABLET (FP) PO SCH (21:26)
[2023-03-13] MEDS: CHLORHEXIDINE GLUCONATE 4% CLEANSER FOR DECOLONIZATION TP SCH (21:27)
[2023-03-14] MEDS: PROPOFOL 1,000,000 MCG/100 ML VIAL IVPB SCH ×2 (00:24→05:50)
[2023-03-14] MEDS: FENTANYL IVPB 500 MCG/100 ML BAG IVPB SCH (00:25)
[2023-03-14] MEDS: methylPREDNISolone NA SUCC 40 MG/1 ML VIAL IVPUSH SCH ×3 (05:50→21:41)
[2023-03-14] MEDS: HEPARIN NA (PORCINE) 5,000 UNITS/ML 1ML VIAL SQ SCH ×3 (05:50→21:41)
[2023-03-14 07:50] LABS: BASO % 0.2 % (0-2.0); HEMATOCRIT 30.9 % (32.4-45.2); HEMOGLOBIN 10.1 GM/dL (10.7-15.3); MCH 24.9 pg (25.7-33.7); MCHC 32.8 g/dl (32.0-36.0); MEAN PLT VOLUME 8.4 fl (7.5-11.1); MONO % 3.6 % (3.8-10.2); NEUT % 89.2 % (42.8-82.8); PLATELET COUNT 213 10^3/uL (134-434); RBC 4.06 M/mm3 (3.60-5.2); RDW 18.4 % (11.6-15.6); WHITE BLOOD COUNT 11.5 K/mm3 (4.0-10.0)
[2023-03-14] MEDS: ALBUTEROL SO4 2.5/IPRATROPIUM 0.5 INH SOL 3 ML VIAL.NEB. NEB SCH ×4 (08:12→20:34)
[2023-03-14 08:21] LABS: POTASSIUM 4.3 mmol/L (3.5-5.1)
[2023-03-14 08:22] LABS: CALCIUM 8.4 mg/dL (8.5-10.1)
[2023-03-14 08:23] LABS: ALBUMIN 3.1 g/dl (3.4-5.0); BLOOD UREA NITROGEN 29.5 mg/dL (7-18); MAGNESIUM 2.6 mg/dL (1.8-2.4)
[2023-03-14 08:26] LABS: CREATININE 1.1 mg/dL (0.55-1.3); PHOSPHOROUS 4.5 mg/dL (2.5-4.9)
[2023-03-14 08:28] LABS: TOT PROT 6.8 g/dl (6.4-8.2)
[2023-03-14 08:39] LABS: BILIRUBIN,TOTAL 0.7 mg/dL (0.2-1)
[2023-03-14] MEDS: DEXMEDETOMIDINE PREMIX 400 MCG/100 ML BAG IVPB SCH ×2 (09:29→09:50)
[2023-03-14] MEDS: LEVOTHYROXINE SODIUM 100 MCG 5 ML VIAL IVPUSH SCH (09:30)
[2023-03-14] MEDS: ASPIRIN 81 MG CHEWABLE TABLETS PO SCH (09:30)
[2023-03-14] MEDS: MUPIROCIN 2% TOPICAL OINTMENT FOR DECOLONIZATION NS SCH ×2 (09:30→21:42)
[2023-03-14] MEDS: PANTOPRAZOLE SODIUM 40 MG VIAL IVPUSH SCH (09:30)
[2023-03-14] MEDS ORDERED: FENTANYL NS IVPB 500 MCG/100 ML BAG IVPB SCH (09:30)
[2023-03-14] MEDS: FUROSEMIDE 40 MG/4 ML INJECTABLE VIAL IVPUSH SCH (09:30)
[2023-03-14] MEDS ORDERED: ONDANSETRON 4 MG/2 ML VIAL ONE (11:27)
[2023-03-14] MEDS: ONDANSETRON 4 MG/2 ML VIAL IVPUSH PRN ×2 (11:35→17:26)
[2023-03-14] MEDS ORDERED: PROCHLORPERAZINE INJECTION 10 MG/2 ML VIAL IVPB ONE (12:27)
[2023-03-14] MEDS ORDERED: FUROSEMIDE 100 MG/10 ML INJECTABLE VIAL IVPB ONE (15:00)
[2023-03-14] MEDS ORDERED: LORazepam 2 MG/ML SDV VIAL IVPB ONE (20:48)
[2023-03-14] MEDS ORDERED: FUROSEMIDE 40 MG/4 ML INJECTABLE VIAL IVPUSH ONE (20:57)
[2023-03-14] MEDS ORDERED: hydrALAZINE HCL 20 MG/ML VIAL IVPUSH PRN (20:57)
[2023-03-14] MEDS: ALBUTEROL SO4 0.5 % INH SOLN 2.5 MG/0.5 ML VIAL.NEB. NEB SCH ×3 (21:00→21:30)
[2023-03-14] MEDS: CHLORHEXIDINE GLUCONATE 4% CLEANSER FOR DECOLONIZATION TP SCH (21:42)
[2023-03-14] MEDS: ATORVASTATIN CA 10 MG TABLET (FP) PO SCH (21:43)
[2023-03-15] MEDS: methylPREDNISolone NA SUCC 40 MG/1 ML VIAL IVPUSH SCH (05:52)
[2023-03-15] MEDS: HEPARIN NA (PORCINE) 5,000 UNITS/ML 1ML VIAL SQ SCH ×3 (05:52→21:29)
[2023-03-15] MEDS: ONDANSETRON 4 MG/2 ML VIAL IVPUSH PRN (06:19)
[2023-03-15] MEDS: ALBUTEROL SO4 2.5/IPRATROPIUM 0.5 INH SOL 3 ML VIAL.NEB. NEB SCH ×4 (07:15→20:30)
[2023-03-15 07:56] LABS: HEMATOCRIT 32.7 % (32.4-45.2); HEMOGLOBIN 10.7 GM/dL (10.7-15.3); MCH 24.9 pg (25.7-33.7); MCHC 32.6 g/dl (32.0-36.0); MEAN CELL VOLUME 76.4 fl (80-96); MEAN PLT VOLUME 8.4 fl (7.5-11.1); PLATELET COUNT 255 10^3/uL (134-434); RBC 4.28 M/mm3 (3.60-5.2); RDW 18.4 % (11.6-15.6)
[2023-03-15 08:20] LABS: POTASSIUM 3.9 mmol/L (3.5-5.1)
[2023-03-15 08:28] LABS: BLOOD UREA NITROGEN 40.4 mg/dL (7-18); CALCIUM 8.6 mg/dL (8.5-10.1); MAGNESIUM 2.4 mg/dL (1.8-2.4)
[2023-03-15 08:31] LABS: CREATININE 1.3 mg/dL (0.55-1.3); PHOSPHOROUS 4.1 mg/dL (2.5-4.9)
[2023-03-15] MEDS: predniSONE 20 MG TABLET (UD) PO SCH (09:20)
[2023-03-15] MEDS: LOSARTAN POTASSIUM 50 MG TABLET PO SCH (09:20)
[2023-03-15] MEDS: FUROSEMIDE 40 MG/4 ML INJECTABLE VIAL IVPUSH SCH (09:21)
[2023-03-15] MEDS: PANTOPRAZOLE 40 MG TABLET PO SCH (09:21)
[2023-03-15] MEDS: PARoxetine HCL 20 MG TABLET PO SCH (09:21)
[2023-03-15] MEDS: ASPIRIN COATED 81 MG TABLET.EC PO SCH (09:21)
[2023-03-15] MEDS: MUPIROCIN 2% TOPICAL OINTMENT FOR DECOLONIZATION NS SCH ×2 (09:24→21:30)
[2023-03-15] MEDS: CEFTRIAXONE 2 GM in DEXTROSE 5%-WATER 100 ML IVPB SCH (20:05)
[2023-03-15] MEDS: CHLORHEXIDINE GLUCONATE 4% CLEANSER FOR DECOLONIZATION TP SCH (21:29)
[2023-03-15] MEDS: ATORVASTATIN CA 10 MG TABLET (FP) PO SCH (21:29)
[2023-03-16] MEDS: HEPARIN NA (PORCINE) 5,000 UNITS/ML 1ML VIAL SQ SCH ×3 (06:05→21:42)
[2023-03-16] MEDS ORDERED: LEVOTHYROXINE NA 125 MCG TABLET (FP) PO SCH (07:00)
[2023-03-16] MEDS: ALBUTEROL SO4 2.5/IPRATROPIUM 0.5 INH SOL 3 ML VIAL.NEB. NEB SCH ×4 (07:15→20:30)
[2023-03-16 07:17] LABS: HEMATOCRIT 30.5 % (32.4-45.2); MCH 24.7 pg (25.7-33.7); MCHC 32.6 g/dl (32.0-36.0); MEAN CELL VOLUME 75.7 fl (80-96); MEAN PLT VOLUME 8.1 fl (7.5-11.1); PLATELET COUNT 248 10^3/uL (134-434); RBC 4.03 M/mm3 (3.60-5.2); RDW 18.2 % (11.6-15.6); WHITE BLOOD COUNT 8.8 K/mm3 (4.0-10.0)
[2023-03-16 07:50] LABS: POTASSIUM 4.7 mmol/L (3.5-5.1)
[2023-03-16 07:55] LABS: BLOOD UREA NITROGEN 40.1 mg/dL (7-18)
[2023-03-16 07:58] LABS: CREATININE 1.1 mg/dL (0.55-1.3); PHOSPHOROUS 3.9 mg/dL (2.5-4.9)
[2023-03-16 08:00] LABS: MAGNESIUM 2.6 mg/dL (1.8-2.4)
[2023-03-16 08:03] LABS: N-TERMINAL BNP 2935.1 pg/ml (5-125)
[2023-03-16] MEDS: CEFTRIAXONE 2 GM in DEXTROSE 5%-WATER 100 ML IVPB SCH (09:14)
[2023-03-16] MEDS: FUROSEMIDE 40 MG/4 ML INJECTABLE VIAL IVPUSH SCH (09:14)
[2023-03-16] MEDS: PANTOPRAZOLE 40 MG TABLET PO SCH (09:15)
[2023-03-16] MEDS: ASPIRIN COATED 81 MG TABLET.EC PO SCH (09:15)
[2023-03-16] MEDS: LOSARTAN POTASSIUM 50 MG TABLET PO SCH (09:15)
[2023-03-16] MEDS: PARoxetine HCL 20 MG TABLET PO SCH (09:15)
[2023-03-16] MEDS: predniSONE 20 MG TABLET (UD) PO SCH (09:15)
[2023-03-16] MEDS: MUPIROCIN 2% TOPICAL OINTMENT FOR DECOLONIZATION NS SCH ×2 (09:18→21:43)
[2023-03-16] MEDS: busPIRone HCL 5 MG TABLET PO PRN ×2 (13:58→21:42)
[2023-03-16] MEDS: ONDANSETRON 4 MG/2 ML VIAL IVPUSH PRN ×2 (15:02→20:15)
[2023-03-16] MEDS ORDERED: MELATONIN 5 MG TABLETS PO PRN (21:08)
[2023-03-16] MEDS ORDERED: ACETAMINOPHEN 325 MG TABLET (FP) PO PRN (21:11)
[2023-03-16] MEDS: ATORVASTATIN CA 10 MG TABLET (FP) PO SCH (21:42)
[2023-03-16] MEDS: CHLORHEXIDINE GLUCONATE 4% CLEANSER FOR DECOLONIZATION TP SCH (21:43)
[2023-03-16] MEDS ORDERED: hydrALAZINE HCL 20 MG/ML VIAL IVPUSH PRN (23:17)
[2023-03-16] MEDS ORDERED: ONDANSETRON 4 MG/2 ML VIAL IVPUSH PRN (23:17)
[2023-03-17] MEDS: busPIRone HCL 5 MG TABLET PO PRN ×3 (02:21→21:28)
[2023-03-17] MEDS: HEPARIN NA (PORCINE) 5,000 UNITS/ML 1ML VIAL SQ SCH ×3 (06:12→21:28)
[2023-03-17] MEDS: LEVOTHYROXINE NA 125 MCG TABLET (FP) PO SCH (06:12)
[2023-03-17] MEDS: ALBUTEROL SO4 2.5/IPRATROPIUM 0.5 INH SOL 3 ML VIAL.NEB. NEB SCH ×4 (08:10→20:35)
[2023-03-17] MEDS: CEFTRIAXONE 2 GM in DEXTROSE 5%-WATER 100 ML IVPB SCH (10:00)
[2023-03-17] MEDS ORDERED: MUPIROCIN 2% TOPICAL OINTMENT FOR DECOLONIZATION NS SCH (10:00)
[2023-03-17] MEDS: LOSARTAN POTASSIUM 50 MG TABLET PO SCH (10:02)
[2023-03-17] MEDS: ASPIRIN COATED 81 MG TABLET.EC PO SCH (10:02)
[2023-03-17] MEDS: FUROSEMIDE 40 MG/4 ML INJECTABLE VIAL IVPUSH SCH (10:02)
[2023-03-17] MEDS: PARoxetine HCL 20 MG TABLET PO SCH (10:02)
[2023-03-17] MEDS: PANTOPRAZOLE 40 MG TABLET PO SCH (10:03)
[2023-03-17] MEDS: predniSONE 20 MG TABLET (UD) PO SCH (10:03)
[2023-03-17] MEDS: AMOX TR/POT CLAV 875MG/125MG TABLETS (FP) PO SCH (17:30)
[2023-03-17] MEDS: ATORVASTATIN CA 10 MG TABLET (FP) PO SCH (21:29)
[2023-03-17] MEDS ORDERED: CHLORHEXIDINE GLUCONATE 4% CLEANSER FOR DECOLONIZATION TP SCH (22:00)
[2023-03-18] MEDS: HEPARIN NA (PORCINE) 5,000 UNITS/ML 1ML VIAL SQ SCH ×3 (05:56→21:23)
[2023-03-18] MEDS: LEVOTHYROXINE NA 125 MCG TABLET (FP) PO SCH (06:00)
[2023-03-18] MEDS: ALBUTEROL SO4 2.5/IPRATROPIUM 0.5 INH SOL 3 ML VIAL.NEB. NEB SCH ×4 (07:30→20:46)
[2023-03-18 07:55] LABS: HEMATOCRIT 30.9 % (32.4-45.2); HEMOGLOBIN 10.2 GM/dL (10.7-15.3); MCH 25.2 pg (25.7-33.7); MCHC 33.2 g/dl (32.0-36.0); MEAN CELL VOLUME 75.9 fl (80-96); MEAN PLT VOLUME 8.7 fl (7.5-11.1); PLATELET COUNT 225 10^3/uL (134-434); RBC 4.07 M/mm3 (3.60-5.2); RDW 17.5 % (11.6-15.6); WHITE BLOOD COUNT 8.5 K/mm3 (4.0-10.0)
[2023-03-18] MEDS: AMOX TR/POT CLAV 875MG/125MG TABLETS (FP) PO SCH ×2 (08:05→17:05)
[2023-03-18 08:13] LABS: POTASSIUM 3.7 mmol/L (3.5-5.1)
[2023-03-18 08:20] LABS: CALCIUM 8.7 mg/dL (8.5-10.1)
[2023-03-18 08:24] LABS: CREATININE 1.2 mg/dL (0.55-1.3)
[2023-03-18 08:25] LABS: BILIRUBIN,TOTAL 0.8 mg/dL (0.2-1); TOT PROT 6.4 g/dl (6.4-8.2)
[2023-03-18] MEDS: PARoxetine HCL 20 MG TABLET PO SCH (10:02)
[2023-03-18] MEDS: FUROSEMIDE 40 MG/4 ML INJECTABLE VIAL IVPUSH SCH (10:02)
[2023-03-18] MEDS: predniSONE 20 MG TABLET (UD) PO SCH (10:02)
[2023-03-18] MEDS: PANTOPRAZOLE 40 MG TABLET PO SCH (10:02)
[2023-03-18] MEDS: ASPIRIN COATED 81 MG TABLET.EC PO SCH (10:02)
[2023-03-18] MEDS: LOSARTAN POTASSIUM 50 MG TABLET PO SCH (10:02)
[2023-03-18] MEDS: busPIRone HCL 5 MG TABLET PO PRN ×2 (13:27→21:23)
[2023-03-18] MEDS: ATORVASTATIN CA 10 MG TABLET (FP) PO SCH (21:23)
[2023-03-18 21:38] VITALS: BMI 42.2
[2023-03-19] MEDS: HEPARIN NA (PORCINE) 5,000 UNITS/ML 1ML VIAL SQ SCH ×3 (06:21→21:54)
[2023-03-19] MEDS: LEVOTHYROXINE NA 125 MCG TABLET (FP) PO SCH (06:22)
[2023-03-19] MEDS: ALBUTEROL SO4 2.5/IPRATROPIUM 0.5 INH SOL 3 ML VIAL.NEB. NEB SCH ×4 (07:15→20:51)
[2023-03-19] MEDS: AMOX TR/POT CLAV 875MG/125MG TABLETS (FP) PO SCH ×2 (08:29→16:41)
[2023-03-19] MEDS ORDERED: ZOLPIDEM TARTRATE 5 MG TABLET PO PRN (09:02)
[2023-03-19] MEDS: ASPIRIN COATED 81 MG TABLET.EC PO SCH (10:25)
[2023-03-19] MEDS: predniSONE 20 MG TABLET (UD) PO SCH (10:28)
[2023-03-19] MEDS: FUROSEMIDE 40 MG/4 ML INJECTABLE VIAL IVPUSH SCH (10:28)
[2023-03-19] MEDS: LOSARTAN POTASSIUM 50 MG TABLET PO SCH (10:28)
[2023-03-19] MEDS: PANTOPRAZOLE 40 MG TABLET PO SCH (10:29)
[2023-03-19] MEDS: PARoxetine HCL 20 MG TABLET PO SCH (10:29)
[2023-03-19] MEDS: ATORVASTATIN CA 10 MG TABLET (FP) PO SCH (21:54)
[2023-03-19] MEDS: busPIRone HCL 5 MG TABLET PO PRN (21:59)
[2023-03-19] MEDS: ACETAMINOPHEN 325 MG TABLET (FP) PO PRN (21:59)
[2023-03-20] MEDS: LEVOTHYROXINE NA 125 MCG TABLET (FP) PO SCH (06:38)
[2023-03-20] MEDS: HEPARIN NA (PORCINE) 5,000 UNITS/ML 1ML VIAL SQ SCH (06:41)
[2023-03-20 06:47] LABS: HEMATOCRIT 28.6 % (32.4-45.2); HEMOGLOBIN 9.5 GM/dL (10.7-15.3); MCH 25.3 pg (25.7-33.7); MCHC 33.3 g/dl (32.0-36.0); MEAN CELL VOLUME 75.9 fl (80-96); MEAN PLT VOLUME 8.5 fl (7.5-11.1); PLATELET COUNT 192 10^3/uL (134-434); RBC 3.77 M/mm3 (3.60-5.2); RDW 18.4 % (11.6-15.6); WHITE BLOOD COUNT 7.8 K/mm3 (4.0-10.0)
[2023-03-20 07:07] LABS: POTASSIUM 3.9 mmol/L (3.5-5.1)
[2023-03-20 07:09] LABS: CALCIUM 8.6 mg/dL (8.5-10.1)
[2023-03-20 07:10] LABS: ALBUMIN 3.1 g/dl (3.4-5.0); BLOOD UREA NITROGEN 42.2 mg/dL (7-18)
[2023-03-20 07:13] LABS: CREATININE 1.2 mg/dL (0.55-1.3)
[2023-03-20 07:14] LABS: BILIRUBIN,TOTAL 0.7 mg/dL (0.2-1)
[2023-03-20 07:15] LABS: TOT PROT 6.2 g/dl (6.4-8.2)
[2023-03-20] MEDS: AMOX TR/POT CLAV 875MG/125MG TABLETS (FP) PO SCH ×2 (08:05→17:27)
[2023-03-20] MEDS ORDERED: POLYETHYLENE GLYCOL (HEALTHYLAX) 3350 17 GM PACKET PO PRN (08:19)
[2023-03-20] MEDS: ALBUTEROL SO4 2.5/IPRATROPIUM 0.5 INH SOL 3 ML VIAL.NEB. NEB SCH ×4 (08:25→20:48)
[2023-03-20] MEDS: ASPIRIN COATED 81 MG TABLET.EC PO SCH (09:51)
[2023-03-20] MEDS: PARoxetine HCL 20 MG TABLET PO SCH (09:51)
[2023-03-20] MEDS: PANTOPRAZOLE 40 MG TABLET PO SCH (09:52)
[2023-03-20] MEDS: LOSARTAN POTASSIUM 50 MG TABLET PO SCH (09:52)
[2023-03-20 09:57] VITALS: RESP 18
[2023-03-20] MEDS ORDERED: predniSONE 10 MG TABLET (UD) PO SCH (10:00)
[2023-03-20] MEDS ORDERED: FUROSEMIDE 40 MG TABLET (FP) PO SCH (10:00)
[2023-03-20] MEDS: busPIRone HCL 5 MG TABLET PO PRN (12:58)
[2023-03-20] MEDS: ACETAMINOPHEN 325 MG TABLET (FP) PO PRN (16:05)
[2023-03-20] MEDS: ATORVASTATIN CA 10 MG TABLET (FP) PO SCH ×2 (20:33→21:02)
[2023-03-20 20:34] VITALS: BP 102/50; TEMP 98.3
[2023-03-20 20:50] VITALS: PULSE 70
== END 2023-03-20 21:20 | DRG 208 ==
LOC: JER 11:30 → JERBED 11:59 → JICU 14:54 → J4W 03-16 23:25
PROVIDERS: ADMIT Internal Medicine; ATTEND Internal Medicine
PROC: 0BH17EZ Insertion of Endotracheal Airway into Trachea, Via Natural or Artificial Opening (ICD-10-PCS; principal; 2023-03-12)
PROC: 5A1945Z Respiratory Ventilation, 24-96 Consecutive Hours (ICD-10-PCS; 2023-03-12)
DX: J96.22 Acute and chronic respiratory failure with hypercapnia (principal); J81.0 Acute pulmonary edema; I50.33 Acute on chronic diastolic (congestive) heart failure; J18.9 Pneumonia, unspecified organism; J44.1 Chronic obstructive pulmonary disease with (acute) exacerbation; E87.29 Other acidosis; Z68.41 Body mass index [BMI] 40.0-44.9, adult; N17.9 Acute kidney failure, unspecified; J96.21 Acute and chronic respiratory failure with hypoxia; E66.9 Obesity, unspecified; I11.0 Hypertensive heart disease with heart failure; I35.0 Nonrheumatic aortic (valve) stenosis; E78.5 Hyperlipidemia, unspecified; E87.70 Fluid overload, unspecified; E03.9 Hypothyroidism, unspecified; I27.20 Pulmonary hypertension, unspecified; G47.33 Obstructive sleep apnea (adult) (pediatric); D72.829 Elevated white blood cell count, unspecified; F41.8 Other specified anxiety disorders; I25.10 Atherosclerotic heart disease of native coronary artery without angina pectoris; Z95.5 Presence of coronary angioplasty implant and graft
CPT/HCPCS: 0241U-QW; 31500; 36415; 36600; 71045-TC-FY; 76775-TC; 80048; 80053; 81003; 82570; 82803; 82962; 83605; 83735; 83880; 84100; 84156; 84300; 84443; 84484; 85025; 85027; 85610; 85730; 86850; 86900; 86901; 87040; 87070; 87076; 87077; 87086; 87186; 87205; 87635; 87899; 93005; 93010; 94002; 94010; 94640; 94660; 97116-GP; 97163-GP; 99291; J1644

== ENCOUNTER 2024-03-24 04:10 | Day surgery (SDC) | payer OTHER, BC ==
[2024-03-16 12:15] VITALS: BMI 43.9
[2024-03-24] MEDS ORDERED: ACETAMINOPHEN 500 MG TABLET (FP) PO PRN (09:12)
[2024-03-24] MEDS ORDERED: LIDOCAINE HCL/PF 1% SDV 5ML VIAL ONE (09:30)
[2024-03-24 09:41] VITALS: TEMP 97.8
[2024-03-24 10:57] VITALS: BP 117/57; PULSE 85; RESP 20
== END 2024-03-24 11:35 | disposition home or self-care (01) ==
LOC: JASU-SURG 04:10
PROVIDERS: ATTEND Pain Medicine Pain Medicine
PROC: 01HY3MZ Insertion of Neurostimulator Lead into Peripheral Nerve, Percutaneous Approach (ICD-10-PCS; principal; 2024-03-24 10:23)
DX: G89.4 Chronic pain syndrome (principal); M25.561 Pain in right knee
CPT/HCPCS: 64555; C1778

== ENCOUNTER 2024-04-05 04:06 | Day surgery (SDC) | payer OTHER, BC ==
[2024-03-30 13:04] VITALS: BMI 43.9
[2024-04-05 06:27] VITALS: RESP 18
[2024-04-05] MEDS ORDERED: MIDAZOLAM HCL 2 MG/2 ML SINGLE DOSE VIAL ONE (07:45)
[2024-04-05] MEDS ORDERED: PROPOFOL 20 ML ONE (07:45)
[2024-04-05] MEDS ORDERED: KETAMINE HCL 200 MG/20 ML VIAL ONE (07:51)
[2024-04-05] MEDS ORDERED: LIDOCAINE HCL 1%, 10 MG/ML (20ML VIAL) ONE (07:51)
[2024-04-05] MEDS ORDERED: BUPIVACAINE HCL/PF 0.5% (5MG/ML) 10 ML VIAL ONE (07:52)
[2024-04-05] MEDS ORDERED: oxyCODONE HCL 5 MG TABLET PO PRN (08:13)
[2024-04-05] MEDS ORDERED: DEXTROSE 5%-0.45% SALINE 1,000 ML IV SCH (08:15)
[2024-04-05] MEDS ORDERED: ONDANSETRON 4 MG/2 ML VIAL IVPUSH PRN (08:35)
[2024-04-05] MEDS ORDERED: ACETAMINOPHEN 1000 MG/100 ML BAG IVPB PRN (08:35)
[2024-04-05] MEDS ORDERED: ACETAMINOPHEN 500 MG TABLET (FP) ONE (08:45)
[2024-04-05] MEDS ORDERED: LACTATED RINGERS SOLUTION 1,000 ML IV SCH (08:45)
[2024-04-05] MEDS: ACETAMINOPHEN 500 MG TABLET (FP) PO ONE (08:46)
[2024-04-05 12:13] VITALS: BP 138/66; PULSE 89; TEMP 98.5
== END 2024-04-05 09:30 | disposition home or self-care (01) ==
LOC: JASU-SURG 04:06
PROVIDERS: ATTEND Urology
PROC: 0TVC8ZZ Restriction of Bladder Neck, Via Natural or Artificial Opening Endoscopic (ICD-10-PCS; principal; 2024-04-05 07:30)
DX: N36.42 Intrinsic sphincter deficiency (ISD) (principal)
CPT/HCPCS: 51715; L8606

== ENCOUNTER 2024-12-29 06:30 | Day surgery (SDC) | payer OTHER, BC ==
[2024-12-27 13:25] VITALS: BMI 39.6
[2024-12-29] MEDS ORDERED: LIDOCAINE HCL/PF 1% SDV 5ML VIAL ONE (07:26)
[2024-12-29] MEDS ORDERED: BUPIVACAINE HCL/PF 0.75% 10 ML VIAL ONE (07:26)
[2024-12-29 07:44] VITALS: BP 130/62; PULSE 85; RESP 22; TEMP 98
[2024-12-29] MEDS ORDERED: ACETAMINOPHEN 500 MG TABLET (FP) PO PRN (09:04)
== END 2024-12-29 09:24 | disposition home or self-care (01) ==
LOC: JASU-SURG 06:30
PROVIDERS: ATTEND Pain Medicine Pain Medicine
DX: Z53.8 Procedure and treatment not carried out for other reasons (principal)

== ENCOUNTER 2024-12-30 16:18 | Emergency (ER) | payer OTHER, BC ==
[2024-12-30 16:26] VITALS: BP 154/74; PULSE 99; RESP 18; TEMP 98.2; BMI 39.6
[2024-12-30] MEDS ORDERED: KETOROLAC TROMETHAMINE 30 MG/1 ML VIAL ONE (17:07)
[2024-12-30] MEDS ORDERED: valACYclovir HCL 500 MG TABLET (FP) ONE (17:07)
[2024-12-30] MEDS: valACYclovir HCL 500 MG TABLET (FP) PO ONE (17:31)
[2024-12-30] MEDS: KETOROLAC TROMETHAMINE 30 MG/1 ML VIAL IM ONE (17:31)
[2024-12-30] MEDS ORDERED: predniSONE 20 MG TABLET (UD) ONE (17:40)
[2024-12-30] MEDS: predniSONE 20 MG TABLET (UD) PO ONE (17:43)
== END 2024-12-30 18:40 | disposition home or self-care (01) ==
LOC: JER 16:18
PROC: 3E0233Z Introduction of Anti-inflammatory into Muscle, Percutaneous Approach (ICD-10-PCS; principal; 2024-12-30)
DX: R21 Rash and other nonspecific skin eruption (principal); B02.9 Zoster without complications; M54.50 Low back pain, unspecified; G89.29 Other chronic pain
CPT/HCPCS: 99284-25

== ENCOUNTER 2025-03-19 18:02 | Inpatient (IN) | payer OTHER, BC ==
[2025-03-19] MEDS ORDERED: DEXTROSE 50%-WATER 25 GM/50 ML DISP.SYRIN ONE ×2 (18:05→19:21)
[2025-03-19] MEDS ORDERED: methylPREDNISolone NA SUCC 125 MG/2 ML VIAL ONE (19:21)
[2025-03-19] MEDS ORDERED: MAGNESIUM SULFATE IN WATER 2 GM/50 ML IVPB IVPB ONE (19:21)
[2025-03-19] MEDS ORDERED: CALCIUM GLUC IN NACL, ISO-OSM 1 GM/50 ML BAG IVPB ONE (19:21)
[2025-03-19 20:14] LABS: VENOUS BASE EXCESS -10.8 mmol/L (-2-2); VENOUS O2 SATURATION 65.3 % (70-80); VENOUS PH 7.251 (7.310-7.410)
[2025-03-19] MEDS: methylPREDNISolone NA SUCC 125 MG/2 ML VIAL IVPUSH ONE (20:15)
[2025-03-19] MEDS: CALCIUM GLUC IN NACL, ISO-OSM 1 GM/50 ML BAG IVPB ONE (20:15)
[2025-03-19 20:17] LABS: HEMOGLOBIN 9.8 g/dL (11.2-15.7); MCHC 29.7 g/dl (32.2-35.5); MEAN CELL VOLUME 88.2 fl (79.4-94.8); MEAN PLT VOLUME 9.9 fl (9.4-12.3); PLATELET COUNT 389 x10^3/uL (182-369); RDW 16.8 % (12.4-16.6)
[2025-03-19 20:24] LABS: INR 2.06 (0.83-1.09); PROTHROMBIN TIME (PATIENT) 22.7 SEC (9.7-13.0)
[2025-03-19 20:27] LABS: ACTIVATED PTT 29.7 SECONDS (25.2-36.5)
[2025-03-19 20:44] LABS: CHLORIDE 91 mmol/L (98-107); SODIUM 132 mmol/L (136-145)
[2025-03-19 20:48] LABS: ALBUMIN 2.7 g/dl (3.4-5.0); BLOOD UREA NITROGEN 59.7 mg/dL (7-18); CALCIUM 8.7 mg/dL (8.5-10.1); CO2 17 mmol/L (21-32); GLUCOSE,RANDOM 162 mg/dL (74-106)
[2025-03-19 20:50] LABS: CREATININE 2.2 mg/dL (0.55-1.3)
[2025-03-19 20:52] LABS: BILIRUBIN,TOTAL 3.7 mg/dL (0.2-1); TOT PROT 5.3 g/dl (6.4-8.2)
[2025-03-19 20:54] LABS: N-TERMINAL BNP 10682.4 pg/ml (5-125)
[2025-03-19 20:54] LABS: ALK PHOS 139 U/L (45-117)
[2025-03-19 20:58] LABS: ANION GAP 24 mmol/L (4-13); POTASSIUM 6.3 mmol/L (3.5-5.1)
[2025-03-19 21:08] LABS: SGOT/AST 4226 U/L (15-37); SGPT/ALT 4373 U/L (13-61)
[2025-03-19] MEDS: MAGNESIUM SULFATE IN WATER 2 GM/50 ML IVPB IVPB ONE (21:32)
[2025-03-19] MEDS ORDERED: FUROSEMIDE 40 MG/4 ML INJECTABLE VIAL ONE (22:05)
[2025-03-19] MEDS ORDERED: MEROPENEM 1 GM VIAL (RESTRICTED TO ID) IVPB ONE (22:05)
[2025-03-19] MEDS: FUROSEMIDE 40 MG/4 ML INJECTABLE VIAL IVPUSH ONE (22:06)
[2025-03-19] MEDS: DEXTROSE 50%-WATER 25 GM/50 ML DISP.SYRIN IVPUSH ONE (22:06)
[2025-03-19] MEDS: LACTATED RINGERS SOLUTION 1000 ML INFUS.BAG IV ONE (22:06)
[2025-03-19] MEDS ORDERED: DEXTROSE 5%-WATER 100 ML IVPB ONE (22:08)
[2025-03-19] MEDS: MEROPENEM 1 GM in DEXTROSE 5%-WATER 100 ML IVPB ONE (22:31)
[2025-03-19] MEDS ORDERED: NOREPINEPHRINE BITARTRATE/D5W 8 MG/250 ML BAG IVPB ONE (22:34)
[2025-03-19] MEDS: NOREPINEPHRINE 0.9 % NACL 8 MG/250 ML BAG IVPB SCH (22:42)
[2025-03-19] MEDS: VANCOMYCIN 1,000 MG in DEXTROSE 5%-WATER - 250 ML IVPB ONE (23:27)
[2025-03-19 23:35] LABS: EPI CELLS >36 /uL (0-25.1); HYALINE CASTS 0 /uL (0-3.1); PH,URINE 6.5 (5.0-8.0); URINE APPEARANCE CLOUDY; URINE BACTERIA 1573 /uL (0-1359); URINE BILIRUBIN NEGATIVE (NEGATIVE); URINE COLOR YELLOW; URINE GLUCOSE (UA) NEGATIVE (NEGATIVE); URINE KETONE NEGATIVE (NEGATIVE); URINE LEUK ESTERASE TRACE (NEGATIVE); URINE NITRITE NEGATIVE (NEGATIVE); URINE PROTEIN 1+ (NEGATIVE); URINE UROBILINOGEN 0.2 mg/dL (0.2-1.0); URINE WBC 97 /uL (0-25.8)
[2025-03-19] MEDS ORDERED: VANCOMYCIN 1 GM PREMIX (F) 1 GM/200 ML BAG ONE (23:48)
[2025-03-20 00:48] LABS: URINE RBC 76.5 /uL (0-23.9); YEAST SEEN (NEGATIVE)
[2025-03-20 01:20] LABS: VENOUS BASE EXCESS -7.4 mmol/L (-2-2); VENOUS O2 SATURATION 67.6 % (70-80); VENOUS PCO2 34.1 mmHg (38-52); VENOUS PH 7.331 (7.310-7.410)
[2025-03-20] MEDS: methylPREDNISolone NA SUCC 40 MG/1 ML VIAL IVPUSH SCH (01:44)
[2025-03-20] MEDS: PIPERACILLIN/TAZOB 3.375 GM 3.375 GM in DEXTROSE 5%-WATER - 50 ML IVPB SCH ×2 (01:45→17:43)
[2025-03-20 01:54] LABS: HEMATOCRIT 32.1 % (34.1-44.9); HEMOGLOBIN 9.8 g/dL (11.2-15.7); MCHC 30.5 g/dl (32.2-35.5); MEAN CELL VOLUME 86.1 fl (79.4-94.8); MEAN PLT VOLUME 10.2 fl (9.4-12.3); PLATELET COUNT 367 x10^3/uL (182-369)
[2025-03-20 02:01] LABS: LACTIC ACID 10.5 mmol/L (0.4-2.0)
[2025-03-20 02:19] LABS: CHLORIDE 91 mmol/L (98-107); POTASSIUM 5.6 mmol/L (3.5-5.1); SODIUM 133 mmol/L (136-145)
[2025-03-20 02:21] LABS: ANION GAP 22 mmol/L (4-13); BLOOD UREA NITROGEN 70.5 mg/dL (7-18); CALCIUM 8.9 mg/dL (8.5-10.1); CO2 20 mmol/L (21-32); GLUCOSE,RANDOM 170 mg/dL (74-106); MAGNESIUM 3.9 mg/dL (1.8-2.4)
[2025-03-20 02:24] LABS: CREATININE 2.3 mg/dL (0.55-1.3)
[2025-03-20 02:26] LABS: BILIRUBIN,TOTAL 4.4 mg/dL (0.2-1); TOT PROT 5.5 g/dl (6.4-8.2)
[2025-03-20 02:27] LABS: ALK PHOS 146 U/L (45-117)
[2025-03-20] MEDS: INSULIN ASPART SLIDING SCALE (NOVOLOG) 1 VIAL SQ SCH (02:28)
[2025-03-20 02:44] LABS: INR 2.49 (0.83-1.09); PROTHROMBIN TIME (PATIENT) 27.4 SEC (9.7-13.0)
[2025-03-20 02:47] LABS: ACTIVATED PTT 26.2 SECONDS (25.2-36.5)
[2025-03-20 03:02] LABS: SGPT/ALT 8560 U/L (13-61)
[2025-03-20 03:05] LABS: PHOSPHOROUS 9.3 mg/dL (2.5-4.9)
[2025-03-20 07:02] LABS: INR 2.37 (0.83-1.09); PROTHROMBIN TIME (PATIENT) 26.1 SEC (9.7-13.0)
[2025-03-20 07:05] LABS: ACTIVATED PTT 24.5 SECONDS (25.2-36.5)
[2025-03-20 07:08] LABS: CHLORIDE 92 mmol/L (98-107); POTASSIUM 5.3 mmol/L (3.5-5.1); SODIUM 133 mmol/L (136-145)
[2025-03-20 07:09] LABS: CALCIUM 8.7 mg/dL (8.5-10.1)
[2025-03-20 07:10] LABS: ANION GAP 19 mmol/L (4-13); CO2 23 mmol/L (21-32); GLUCOSE,RANDOM 168 mg/dL (74-106); HEMATOCRIT 30.6 % (34.1-44.9); HEMOGLOBIN 9.6 g/dL (11.2-15.7); MAGNESIUM 3.9 mg/dL (1.8-2.4); MCHC 31.4 g/dl (32.2-35.5); MEAN CELL VOLUME 84.1 fl (79.4-94.8); MEAN PLT VOLUME 10.2 fl (9.4-12.3); PLATELET COUNT 342 x10^3/uL (182-369)
[2025-03-20 07:13] LABS: CREATININE 2.5 mg/dL (0.55-1.3); PHOSPHOROUS 8.8 mg/dL (2.5-4.9)
[2025-03-20 07:14] LABS: BILIRUBIN,TOTAL 4.8 mg/dL (0.2-1); TOT PROT 5.6 g/dl (6.4-8.2)
[2025-03-20 07:15] LABS: ALK PHOS 159 U/L (45-117)
[2025-03-20 07:37] LABS: SGPT/ALT 9848 U/L (13-61)
[2025-03-20] MEDS: LACTATED RINGERS SOLUTION 1,000 ML/1,000 ML INFUS.BAG IV SCH (09:00)
[2025-03-20 09:42] LABS: LACTIC ACID 5.2 mmol/L (0.4-2.0)
[2025-03-20] MEDS: MUPIROCIN 2% TOPICAL OINTMENT FOR DECOLONIZATION NS SCH (10:31)
[2025-03-20] MEDS: PANTOPRAZOLE SODIUM 40 MG VIAL IVPUSH SCH (10:31)
[2025-03-20] MEDS: PHYTONADIONE 10 MG/1 ML AMP IVPB ONE (10:51)
[2025-03-20] MEDS: AZITHROMYCIN IVPB 500 MG/250 ML BAG IVPB SCH (10:55)
[2025-03-20 11:26] LABS: LACTIC ACID 5.4 mmol/L (0.4-2.0)
[2025-03-20] MEDS: SODIUM CHLORIDE 1,000 ML IV SCH (13:00)
[2025-03-20 15:55] LABS: LACTIC ACID 3.4 mmol/L (0.4-2.0)
[2025-03-20 17:59] LABS: LACTIC ACID 2.9 mmol/L (0.4-2.0)
[2025-03-20] MEDS: PIPERACILLIN/TAZOB 2.25 GM 2.25 GM/50 ML BAG IVPB SCH (18:03)
[2025-03-20 21:13] LABS: HEMATOCRIT 29.5 % (34.1-44.9); HEMOGLOBIN 9.3 g/dL (11.2-15.7); MCHC 31.5 g/dl (32.2-35.5); MEAN CELL VOLUME 83.6 fl (79.4-94.8); MEAN PLT VOLUME 10.3 fl (9.4-12.3); PLATELET COUNT 193 x10^3/uL (182-369); RDW 17.2 % (12.4-16.6); VENOUS BASE EXCESS -0.4 mmol/L (-2-2); VENOUS O2 SATURATION 64.8 % (70-80); VENOUS PCO2 45.4 mmHg (38-52); VENOUS PH 7.362 (7.310-7.410)
[2025-03-20] MEDS: CHLORHEXIDINE GLUCONATE 4% CLEANSER FOR DECOLONIZATION TP SCH (21:20)
[2025-03-20 21:21] LABS: INR 2.66 (0.83-1.09)
[2025-03-20 21:40] LABS: BLOOD UREA NITROGEN 90.1 mg/dL (7-18); CALCIUM 8.7 mg/dL (8.5-10.1)
[2025-03-20 21:45] LABS: TOT PROT 5.2 g/dl (6.4-8.2)
[2025-03-21] MEDS ORDERED: FUROSEMIDE 40 MG/4 ML INJECTABLE VIAL ONE (06:42)
[2025-03-21] MEDS: FUROSEMIDE 100 MG/10 ML INJECTABLE VIAL IVPB ONE (06:46)
[2025-03-21] MEDS: LEVOTHYROXINE NA 150 MCG TABLET PO SCH (06:47)
[2025-03-21 07:09] LABS: HEMATOCRIT 28.2 % (34.1-44.9); HEMOGLOBIN 8.8 g/dL (11.2-15.7); MCHC 31.2 g/dl (32.2-35.5); MEAN CELL VOLUME 83.9 fl (79.4-94.8); MEAN PLT VOLUME 10.8 fl (9.4-12.3); PLATELET COUNT 173 x10^3/uL (182-369); RDW 17.3 % (12.4-16.6)
[2025-03-21 07:13] LABS: HEMATOCRIT 27.9 % (34.1-44.9); HEMOGLOBIN 8.8 g/dL (11.2-15.7); MCHC 31.5 g/dl (32.2-35.5); MEAN CELL VOLUME 83.8 fl (79.4-94.8); MEAN PLT VOLUME 10.3 fl (9.4-12.3); PLATELET COUNT 166 x10^3/uL (182-369); RDW 17.3 % (12.4-16.6)
[2025-03-21 07:25] LABS: CALCIUM 7.8 mg/dL (8.5-10.1)
[2025-03-21 07:26] LABS: ALBUMIN 2.7 g/dl (3.4-5.0); MAGNESIUM 3.6 mg/dL (1.8-2.4)
[2025-03-21 07:29] LABS: CREATININE 3.3 mg/dL (0.55-1.3); PHOSPHOROUS 8.6 mg/dL (2.5-4.9)
[2025-03-21 07:30] LABS: BILIRUBIN,TOTAL 4.6 mg/dL (0.2-1); TOT PROT 4.7 g/dl (6.4-8.2)
[2025-03-21] MEDS: CALCIUM ACETATE 667 MG CAPSULE (FP) PO SCH (08:19)
[2025-03-21] MEDS: PHYTONADIONE 10 MG/1 ML AMP IVPB ONE (09:23)
[2025-03-21 10:17] LABS: LACTIC ACID 2.2 mmol/L (0.4-2.0)
[2025-03-21] MEDS: ENOXAPARIN NA (PORCINE) 100 MG/1 ML DISP.SYRIN SQ SCH (10:24)
[2025-03-21] MEDS: PIPERACILLIN/TAZOB 4.5 GM 4.5 GM in DEXTROSE 5%-WATER 100 ML IVPB SCH (11:29)
[2025-03-21 11:41] LABS: LACTIC ACID 2.5 mmol/L (0.4-2.0)
[2025-03-21] MEDS: VANCOMYCIN PREMIX 1.5 GM 1,500 MG/300 ML BAG IVPB ONE (13:26)
[2025-03-21 21:34] LABS: CHLORIDE 96 mmol/L (98-107); POTASSIUM 5.4 mmol/L (3.5-5.1); SODIUM 135 mmol/L (136-145)
[2025-03-21 21:35] LABS: CALCIUM 8.2 mg/dL (8.5-10.1)
[2025-03-21 21:36] LABS: ANION GAP 15 mmol/L (4-13); CO2 23 mmol/L (21-32); GLUCOSE,RANDOM 113 mg/dL (74-106)
[2025-03-21 21:39] LABS: CREATININE 3.7 mg/dL (0.55-1.3)
[2025-03-21 21:47] LABS: BLOOD UREA NITROGEN 107.6 mg/dL (7-18)
[2025-03-22 07:31] LABS: INR 1.95 (0.83-1.09); PROTHROMBIN TIME (PATIENT) 21.4 SEC (9.7-13.0)
[2025-03-22 07:39] LABS: HEMATOCRIT 33.2 % (34.1-44.9); HEMOGLOBIN 10.3 g/dL (11.2-15.7); MEAN CELL VOLUME 84.7 fl (79.4-94.8); MEAN PLT VOLUME 10.8 fl (9.4-12.3); PLATELET COUNT 164 x10^3/uL (182-369); RDW 17.7 % (12.4-16.6)
[2025-03-22 07:45] LABS: CHLORIDE 95 mmol/L (98-107); POTASSIUM 5.4 mmol/L (3.5-5.1); SODIUM 133 mmol/L (136-145)
[2025-03-22 07:52] LABS: ALBUMIN 2.8 g/dl (3.4-5.0); CALCIUM 7.9 mg/dL (8.5-10.1)
[2025-03-22 07:53] LABS: ANION GAP 16 mmol/L (4-13); CO2 23 mmol/L (21-32); GLUCOSE,RANDOM 95 mg/dL (74-106); MAGNESIUM 3.6 mg/dL (1.8-2.4)
[2025-03-22 07:56] LABS: CREATININE 4.1 mg/dL (0.55-1.3); PHOSPHOROUS 8.8 mg/dL (2.5-4.9)
[2025-03-22 07:57] LABS: BILIRUBIN,TOTAL 4.6 mg/dL (0.2-1); TOT PROT 5.1 g/dl (6.4-8.2)
[2025-03-22 07:58] LABS: ALK PHOS 182 U/L (45-117)
[2025-03-22 08:01] LABS: BLOOD UREA NITROGEN 113.4 mg/dL (7-18); LACTIC ACID 2.7 mmol/L (0.4-2.0)
[2025-03-22 08:10] LABS: SGOT/AST 1761 U/L (15-37)
[2025-03-22 08:12] LABS: SGPT/ALT 6942 U/L (13-61)
[2025-03-22] MEDS ORDERED: SODIUM ZIRCONIUM CYCLOSILICATE (LOKELMA) 5 GM PACKET PO ONE (09:54)
[2025-03-22] MEDS: SODIUM ZIRCONIUM CYCLOSILICATE (LOKELMA) 5 GM PACKET PO ONE (11:22)
[2025-03-22] MEDS: LINEZOLID 600 MG PREMIX BAG 600 MG in PREMIX 300 IVPB SCH (13:40)
[2025-03-22] MEDS ORDERED: ONDANSETRON 4 MG/2 ML VIAL IVPUSH PRN ×2 (14:47→18:36)
[2025-03-23] MEDS: NYSTATIN 500,000 UNITS/5 ML SUSPENSION PO SCH (01:15)
[2025-03-23] MEDS: ONDANSETRON 4 MG/2 ML VIAL IVPUSH PRN (02:24)
[2025-03-23 06:46] LABS: CHLORIDE 93 mmol/L (98-107); POTASSIUM 5.2 mmol/L (3.5-5.1); SODIUM 131 mmol/L (136-145)
[2025-03-23 06:48] LABS: ALBUMIN 2.4 g/dl (3.4-5.0); ANION GAP 17 mmol/L (4-13); CALCIUM 7.9 mg/dL (8.5-10.1); CO2 21 mmol/L (21-32); MAGNESIUM 3.1 mg/dL (1.8-2.4)
[2025-03-23 06:49] LABS: GLUCOSE,RANDOM 94 mg/dL (74-106)
[2025-03-23 06:51] LABS: HEMOGLOBIN 9.1 g/dL (11.2-15.7); MCHC 31.4 g/dl (32.2-35.5); MEAN CELL VOLUME 84.1 fl (79.4-94.8); MEAN PLT VOLUME 10.9 fl (9.4-12.3); PLATELET COUNT 110 x10^3/uL (182-369); RDW 18.1 % (12.4-16.6); SGOT/AST 464 U/L (15-37)
[2025-03-23 06:52] LABS: CREATININE 4.8 mg/dL (0.55-1.3); PHOSPHOROUS 8.6 mg/dL (2.5-4.9)
[2025-03-23 06:53] LABS: BILIRUBIN,TOTAL 3.7 mg/dL (0.2-1); TOT PROT 4.7 g/dl (6.4-8.2)
[2025-03-23 06:54] LABS: ALK PHOS 170 U/L (45-117)
[2025-03-23 07:09] LABS: SGPT/ALT 4026 U/L (13-61)
[2025-03-23] MEDS ORDERED: AMIODARONE HCL 200 MG TABLET PO SCH (10:00)
[2025-03-23] MEDS ORDERED: METOPROLOL TARTRATE 25 MG TABLET (FP) PO SCH (10:00)
[2025-03-23] MEDS: SODIUM ZIRCONIUM CYCLOSILICATE (LOKELMA) 5 GM PACKET PO ONE (10:02)
[2025-03-23] MEDS: METOPROLOL TARTRATE 50 MG, METOPROLOL TARTRATE 25 MG PO SCH (12:08)
[2025-03-23] MEDS: LACTATED RINGERS SOLUTION 1,000 ML/1,000 ML INFUS.BAG IV SCH (15:30)
[2025-03-23 15:34] VITALS: BMI 41.3
[2025-03-23 18:14] LABS: ARTERIAL BLD GAS O2 SATURATION 97.1 % (95-98); ARTERIAL BLOOD GAS BASE EXCESS -9.3 mmol/L (-2-2); ARTERIAL BLOOD GAS PO2 104.6 mmHg (80-100); ARTERIAL BLOOD GAS pH 7.271 (7.350-7.450); O2 CONTENT 1.43 % vol
[2025-03-24 06:56] LABS: HEMATOCRIT 30.6 % (34.1-44.9); HEMOGLOBIN 9.8 g/dL (11.2-15.7); MEAN CELL VOLUME 82.5 fl (79.4-94.8); MEAN PLT VOLUME 10.9 fl (9.4-12.3); PLATELET COUNT 106 x10^3/uL (182-369); RDW 18.6 % (12.4-16.6)
[2025-03-24 07:13] LABS: CHLORIDE 92 mmol/L (98-107); POTASSIUM 5.4 mmol/L (3.5-5.1); SODIUM 128 mmol/L (136-145)
[2025-03-24 07:32] LABS: ALBUMIN 2.4 g/dl (3.4-5.0); ANION GAP 15 mmol/L (4-13); CO2 20 mmol/L (21-32); GLUCOSE,RANDOM 97 mg/dL (74-106)
[2025-03-24 07:35] LABS: SGOT/AST 210 U/L (15-37)
[2025-03-24 07:36] LABS: CREATININE 5.6 mg/dL (0.55-1.3)
[2025-03-24 07:37] LABS: BILIRUBIN,TOTAL 3.5 mg/dL (0.2-1)
[2025-03-24 07:38] LABS: ALK PHOS 166 U/L (45-117)
[2025-03-24 07:41] LABS: BLOOD UREA NITROGEN 125.3 mg/dL (7-18); CALCIUM 9.1 mg/dL (8.5-10.1)
[2025-03-24 07:53] LABS: SGPT/ALT 2862 U/L (13-61)
[2025-03-24] MEDS: MEROPENEM 500 MG in DEXTROSE 5%-WATER 100 ML IVPB SCH (10:36)
[2025-03-24] MEDS ORDERED: SODIUM CHLORIDE 250 ML IV PRN (11:02)
[2025-03-24] MEDS: SODIUM ZIRCONIUM CYCLOSILICATE (LOKELMA) 5 GM PACKET PO ONE (13:52)
[2025-03-24 14:20] LABS: HEMATOCRIT 30.5 % (34.1-44.9); HEMOGLOBIN 9.4 g/dL (11.2-15.7); MCHC 30.8 g/dl (32.2-35.5); MEAN CELL VOLUME 83.3 fl (79.4-94.8); MEAN PLT VOLUME 11.6 fl (9.4-12.3); PLATELET COUNT 130 x10^3/uL (182-369); RDW 18.7 % (12.4-16.6)
[2025-03-24] MEDS ORDERED: METOPROLOL TARTRATE 5 MG/5 ML VIAL ONE (16:28)
[2025-03-24] MEDS: METOPROLOL TARTRATE 5 MG/5 ML VIAL IVPUSH ONE ×2 (16:39→19:01)
[2025-03-24 17:47] LABS: HCV DIAGNOSTIC IN-HOUSE W/RFLX NON-REACTIVE (NONREACTIVE)
[2025-03-24 17:48] LABS: HEPATITIS B SURF AG NON-MATERN NON-REACTIVE (NONREACTIVE)
[2025-03-24] MEDS ORDERED: METOPROLOL TARTRATE 5 MG/5 ML VIAL IVPUSH PRN (20:30)
[2025-03-25] MEDS: METOPROLOL TARTRATE 5 MG/5 ML VIAL IVPUSH SCH (00:42)
[2025-03-25] MEDS: LEVOTHYROXINE SODIUM 100 MCG 5 ML VIAL IVPB SCH (06:03)
[2025-03-25 06:47] LABS: ABSOLUTE IMMATURE GRANULOCYTES 0.18 x10^3/uL (0.0-0.031); BASOPHILS # 0.01 x10^3/uL (0.01-0.08); EOSINOPHIL % 0.9 % (0.7-5.8); HEMATOCRIT 24.9 % (34.1-44.9); HEMOGLOBIN 7.9 g/dL (11.2-15.7); MCHC 31.7 g/dl (32.2-35.5); MEAN CELL VOLUME 82.5 fl (79.4-94.8); MEAN PLT VOLUME 11.5 fl (9.4-12.3); MONOCYTE # 0.42 x10^3/uL (0.24-0.86); MONOCYTE % 3.7 % (4.7-12.5); PLATELET COUNT 89 x10^3/uL (182-369); RDW 18.6 % (12.4-16.6)
[2025-03-25 06:48] LABS: CHLORIDE 93 mmol/L (98-107); POTASSIUM 5.3 mmol/L (3.5-5.1); SODIUM 131 mmol/L (136-145)
[2025-03-25 06:50] LABS: CALCIUM 8.6 mg/dL (8.5-10.1); GLUCOSE,RANDOM 98 mg/dL (74-106)
[2025-03-25 06:51] LABS: ALBUMIN 2.2 g/dl (3.4-5.0); ANION GAP 15 mmol/L (4-13); BLOOD UREA NITROGEN 111.5 mg/dL (7-18); CO2 23 mmol/L (21-32); MAGNESIUM 3.1 mg/dL (1.8-2.4)
[2025-03-25 06:54] LABS: CREATININE 5.5 mg/dL (0.55-1.3); SGOT/AST 88 U/L (15-37)
[2025-03-25 06:55] LABS: TOT PROT 4.6 g/dl (6.4-8.2)
[2025-03-25 06:57] LABS: BILIRUBIN,TOTAL 2.9 mg/dL (0.2-1)
[2025-03-25 07:04] LABS: ALK PHOS 134 U/L (45-117); SGPT/ALT 1544 U/L (13-61)
[2025-03-25 07:27] LABS: PHOSPHOROUS 8.3 mg/dL (2.5-4.9)
[2025-03-25] MEDS ORDERED: SODIUM CHLORIDE 250 ML IV PRN (08:50)
[2025-03-25 09:25] LABS: ALLENS TEST POSITIVE; ARTERIAL BLD GAS O2 SATURATION 98.3 % (95-98); ARTERIAL BLOOD GAS BASE EXCESS -7.9 mmol/L (-2-2); ARTERIAL BLOOD GAS PO2 127.2 mmHg (80-100); ARTERIAL BLOOD GAS pH 7.312 (7.350-7.450); O2 CONTENT 1.35 % vol; VENT MODE S/T
[2025-03-25 09:26] LABS: VENT RATE 12
[2025-03-25] MEDS ORDERED: RAPID SEQUENCE INTUBATION KIT NR ONE (16:56)
[2025-03-25] MEDS ORDERED: DEXTROSE 50%-WATER 25 GM/50 ML DISP.SYRIN ONE (17:09)
[2025-03-25] MEDS ORDERED: FENTANYL NS IVPB 500 MCG/100 ML BAG IVPB ONE (17:26)
[2025-03-25] MEDS: TRANEXAMIC ACID 1000 MG/10 ML VIAL IVPUSH ONE (17:30)
[2025-03-25] MEDS: FENTANYL NS IVPB 500 MCG/100 ML BAG IVPB SCH (17:30)
[2025-03-25] MEDS: NOREPINEPHRINE 0.9 % NACL 8 MG/250 ML BAG IVPB SCH (17:30)
[2025-03-25] MEDS: VASopressin 40 UNITS/100 ML BAG IV SCH (17:30)
[2025-03-25] MEDS ORDERED: VASopressin 20 UNITS/ML VIAL IV ONE (17:44)
[2025-03-25] MEDS ORDERED: TRANEXAMIC ACID 1000 MG/10 ML VIAL NS ONE (17:52)
[2025-03-25 18:18] LABS: BASOPHILS # 0.02 x10^3/uL (0.01-0.08); HEMOGLOBIN 7.3 g/dL (11.2-15.7)
[2025-03-25 18:20] LABS: ABSOLUTE IMMATURE GRANULOCYTES 0.61 x10^3/uL (0.0-0.031); EOSINOPHIL % 0.7 % (0.7-5.8); HEMATOCRIT 23.2 % (34.1-44.9); MCHC 31.5 g/dl (32.2-35.5); MEAN CELL VOLUME 84.4 fl (79.4-94.8); MEAN PLT VOLUME 11.7 fl (9.4-12.3); MONOCYTE # 0.58 x10^3/uL (0.24-0.86); PLATELET COUNT 93 x10^3/uL (182-369)
[2025-03-25 18:25] LABS: INR 1.51 (0.83-1.09); PROTHROMBIN TIME (PATIENT) 16.5 SEC (9.7-13.0)
[2025-03-25 18:33] LABS: POTASSIUM 5.2 mmol/L (3.5-5.1)
[2025-03-25 18:35] LABS: CALCIUM 8.4 mg/dL (8.5-10.1)
[2025-03-25 18:36] LABS: BLOOD UREA NITROGEN 95.5 mg/dL (7-18); MAGNESIUM 2.9 mg/dL (1.8-2.4)
[2025-03-25 18:39] LABS: CREATININE 5.2 mg/dL (0.55-1.3)
[2025-03-25 18:40] LABS: BILIRUBIN,TOTAL 2.4 mg/dL (0.2-1); TOT PROT 4.2 g/dl (6.4-8.2)
[2025-03-25 18:43] LABS: ARTERIAL BLD GAS O2 SATURATION 99.1 % (95-98); ARTERIAL BLOOD GAS BASE EXCESS -11.1 mmol/L (-2-2); ARTERIAL BLOOD GAS PO2 176.4 mmHg (80-100); ARTERIAL BLOOD GAS pH 7.287 (7.350-7.450)
[2025-03-25 18:46] LABS: VENT MODE A/C; VENT RATE 20
[2025-03-25 18:51] LABS: LACTIC ACID 6.5 mmol/L (0.4-2.0)
[2025-03-25 18:56] VITALS: TEMP 116
[2025-03-25 20:08] VITALS: BP 99/50; PULSE 83
[2025-03-25 20:36] VITALS: RESP 22
[2025-03-25] MEDS ORDERED: morphine CARPU-JECT 2 MG/1 ML DISP.SYRIN IVPUSH ONE (21:20)
[2025-03-25] MEDS ORDERED: LORazepam 2 MG/ML SDV VIAL ONE (21:27)
[2025-03-25] MEDS ORDERED: morphine SULFATE 4 MG/ML VIAL ONE (21:27)
[2025-03-25] MEDS: morphine SULFATE 4 MG/ML VIAL IVPUSH ONE (21:35)
[2025-03-25] MEDS: LORazepam 2 MG/ML SDV VIAL IVPUSH ONE (21:35)
[2025-03-27 19:06] LABS: ANTIGLOMERULAR BASEMENT MEN.AB <0.2 units (0.0-0.9)
[2025-03-28 15:06] LABS: C-ANCA <1:20 titer (Neg:<1:20)
== END 2025-03-25 21:50 | disposition expired | DRG 871 ==
LOC: JER 18:02 → JERBED 20:25 → JICU 03-20 01:13
PROVIDERS: ADMIT Internal Medicine Pulmonary Disease; ATTEND Internal Medicine Pulmonary Disease
PROC: 06HY33Z Insertion of Infusion Device into Lower Vein, Percutaneous Approach (ICD-10-PCS; 2025-03-19)
PROC: 05HM33Z Insertion of Infusion Device into Right Internal Jugular Vein, Percutaneous Approach (ICD-10-PCS; principal; 2025-03-24)
PROC: B543ZZA Ultrasonography of Right Jugular Veins, Guidance (ICD-10-PCS; 2025-03-24)
PROC: 06HY33Z Insertion of Infusion Device into Lower Vein, Percutaneous Approach (ICD-10-PCS; 2025-03-25)
PROC: 4A133B1 Monitoring of Arterial Pressure, Peripheral, Percutaneous Approach (ICD-10-PCS; 2025-03-25)
PROC: 4A133J1 Monitoring of Arterial Pulse, Peripheral, Percutaneous Approach (ICD-10-PCS; 2025-03-25)
PROC: 5A1935Z Respiratory Ventilation, Less than 24 Consecutive Hours (ICD-10-PCS; 2025-03-25)
PROC: 0BH17EZ Insertion of Endotracheal Airway into Trachea, Via Natural or Artificial Opening (ICD-10-PCS; 2025-03-25)
PROC: 5A1D70Z Performance of Urinary Filtration, Intermittent, Less than 6 Hours Per Day (ICD-10-PCS; 2025-03-25)
DX: A41.9 Sepsis, unspecified organism (principal); G92.8 Other toxic encephalopathy; J96.01 Acute respiratory failure with hypoxia; K72.00 Acute and subacute hepatic failure without coma; R65.21 Severe sepsis with septic shock; I50.33 Acute on chronic diastolic (congestive) heart failure; N17.0 Acute kidney failure with tubular necrosis; J69.0 Pneumonitis due to inhalation of food and vomit; E87.20 Acidosis, unspecified; N39.0 Urinary tract infection, site not specified; I13.0 Hypertensive heart and chronic kidney disease with heart failure and stage 1 through stage 4 chronic kidney disease, or unspecified chronic kidney disease; Z68.41 Body mass index [BMI] 40.0-44.9, adult; J44.9 Chronic obstructive pulmonary disease, unspecified; E87.5 Hyperkalemia; I25.10 Atherosclerotic heart disease of native coronary artery without angina pectoris; I48.0 Paroxysmal atrial fibrillation; I46.9 Cardiac arrest, cause unspecified; E78.5 Hyperlipidemia, unspecified; N18.9 Chronic kidney disease, unspecified; E03.9 Hypothyroidism, unspecified; E83.39 Other disorders of phosphorus metabolism; E83.41 Hypermagnesemia; E66.9 Obesity, unspecified
CPT/HCPCS: 0241U-QW; 31500; 36415; 36600; 70450-TC; 71045-TC-FY; 74018-TC-FY; 76705-TC; 80048; 80053; 80307; 81003; 82010; 82140; 82803; 82962; 83516; 83520; 83605; 83690; 83735; 83880; 84100; 84155; 84165; 84439; 84443; 84484; 85025; 85027; 85384; 85610; 85651; 85730; 86038; 86140; 86225; 86256; 86705; 86708; 86803; 86850; 86900; 86901; 87040; 87045; 87046; 87086; 87324; 87340; 87350; 87449; 87481; 87517; 87522; 87899; 93005; 93010; 93308; 93975; 94002; 94660; 99291; G0480; J3490